=== PATIENT | male | born 1930 | race Caucasian/White ===

== ENCOUNTER 2019-07-22 14:39 | Inpatient (IN) ==
[2019-07-22] MEDS ORDERED: IOPAMIDOL 100 ML BOTTLE IV ONE (14:40)
--- NOTE | 2019-07-22 14:54 | Emergency Department Note ---
Neuro HPI - General Chief Complaint: Stroke Symptoms Stated Complaint: Confusion, weakness Time Seen by Provider: 07/22/19 14:45 Source: family Mode of arrival: wheelchair Limitations: altered mental status, physical limitation - History of Present Illness HPI Narrative: 89-year-old male comes in for aphasia since noon or about 2 hours and 45 minutes. He does not recall what he had for lunch but he does have some ongoing dementia. His was concerned about stroke as he had had a previous one 5 years prior[address] He [address] 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 Huang. He is not having significant pain right now nor shortness of breath. He has significant hearing loss as does his so it is somewhat difficult to communicate On Anticoagulants: Yes - Related Data Home Medications: Home Medications Medication Instructions Recorded Confirmed Aspirin [Maribell Chewable Aspirin] 81 mg PO DAILY 09/25/18 07/22/19 B2/Vits A,C,E/Lut/Zeaxanth/Min 1 each PO BID 09/25/18 07/22/19 [Icaps Tablet] Calcium Polycarbophil [Fiber 625 mg PO HS 09/25/18 07/22/19 Laxative] Docusate Sodium [Colace] 100 mg PO QAM 09/25/18 07/22/19 Hydrochlorothiazide [Oretic] 25 mg PO DAILY 09/25/18 07/22/19 Isosorbide Mononitrate [Imdur] 30 mg PO DAILY 09/25/18 07/22/19 Lisinopril [Zestril] 40 mg PO DAILY 09/25/18 07/22/19 Metoprolol Tartrate [Lopressor] 25 mg PO BID 09/25/18 07/22/19 Omeprazole [PriLOSEC] 20 mg PO ACB 09/25/18 07/22/19 glipiZIDE [Glucotrol] 10 mg PO BID 09/25/18 07/22/19 metFORMIN HCL [Metformin HCl] 1,275 mg PO QAM 09/25/18 07/22/19 metFORMIN HCL [Metformin HCl] 850 mg PO HS 09/25/18 07/22/19 Apixaban [Eliquis] 5 mg PO BID 12/17/19 12/17/19 Magnesium Amino Acid Chelate 150 mg PO HS 07/22/19 07/22/19 [Magnesium] Magnesium Oxide [Magnesium] 400 mg PO DAILY 07/22/19 07/22/19 Allergies/Adverse Reactions: Allergies Allergy/AdvReac Type Severity Reaction Status Date / Time Penicillins [PENICILLINS] Allergy Intermediate Hives Verified 09/25/18 15:38 Sulfa (Sulfonamide Allergy Intermediate Hives Verified 09/25/18 15:38 Antibiotics) [SULFA (SULFONAMIDE ANTIBIOTICS)] Review of Systems All systems ED: reviewed and negative except as stated. Past Medical History - Past Medical History Attestation: Yes: The following information was validated with the patient. Medical history: Reports: atrial fibrillation, CVA, dementia, kidney stones, pulmonary embolus, other (Colon cancer, right arm melanoma, prostate cancer, cataracts) Surgical history ED: Reports: other (Appendectomy, lithotripsy, prostate cancer implant, cataracts, multiple heart caths, [place] filter) - Social History smoking status: Never smoker Alcohol use: Reports: None Drug use: Reports: none Physical Exam No acute distress resting comfortably. Normocephalic atraumatic. Conjunctive are clear sclera white nonicteric. No nasal discharge or congestion. Bilateral hearing aids in place. Oropharynx is pink and moist. Posterior pharynx is clear. Neck is supple without lymphadenopathy thyromegaly or carotid bruit. Heart is regular rate and rhythm no murmur appreciated. Lungs are clear to auscultation bilaterally without wheezes rales rhonchi or respiratory distress. Abdomen is soft nontender nondistended. No peritoneal signs or guarding. He is alert and oriented to self. He knows where he is at. He does have some short- term memory deficit however but this is not new. His mental status seems to be in flux. At first he is able to smile well for us I do not see any facial droop but now this may be getting slightly worse. He is globally weak but I do not see a focal weakness. Bilateral electrochemist are normal. At times he can answer questions but other times he seems to have aphasia. Difficult to assess his visual reyes but certainly his pupils are equal round and reactive. Extraocular movements do appear to be intact. Limitations: altered mental status, physical limitation Course Vital Signs Temperature 97.2 F 07/22/19 14:44 Pulse Rate 78 07/22/19 14:44 Respiratory Rate 16 07/22/19 14:44 Blood Pressure 178/87 07/22/19 14:44 Pulse Oximetry (%) 95 07/22/19 14:44 Temperature 97.2 F 07/22/19 14:44 Pulse Rate 78 07/22/19 16:31 Respiratory Rate 20 07/22/19 17:31 Blood Pressure 155/91 07/22/19 17:31 Pulse Oximetry (%) 84 L 07/22/19 16:31 Neuro Symptoms/Deficit - Lab Data Lab results reviewed: Yes I reviewed the patient's lab results. Result diagrams: 07/22/19 14:54 07/22/19 14:54 Lab Results 07/22/19 07/22/19 07/22/19 Range/Units 14:54 14:54 14:54 WBC 8.3 (4.5-11.0) K/mcL RBC 4.77 (4.50-5.90) M/mcL Hgb 15.8 (13.5-16.5) g/dL Hct 47.1 (41.0-55.0) % POC Hct 46.0 (41.0-55.0) % MCV 98.7 (80.0-100.0) fL MCH 33.1 (26.0-34.0) pg MCHC 33.6 (31.0-36.0) g/dL RDW 14.6 H (11.5-14.5) % Plt Count 201 (140-440) K/mcL MPV 7.0 L (7.4-10.4) fL Gran % 60.9 (38.0-78.0) % Lymph % (Auto) 22.0 (15.5-49.0) % Piatt % (Auto) 12.5 H (1.0-12.0) % Eos % (Auto) 4.3 (0.0-7.0) % Baso % (Auto) 0.3 (0.0-2.0) % Gran # 5.1 (1.8-8.0) K/mcL Lymph # (Auto) 1.8 (1.5-4.8) K/mcL Piatt # (Auto) 1.0 H (0.1-0.9) K/mcL Eos # (Auto) 0.4 (0.0-0.7) K/mcL Baso # (Auto) 0 (0.0-0.3) K/mcL POC PT (11.9-14.5) sec POC INR (0.9-1.2) APTT (20-37) sec POC Sodium 140 (133-145) mmol/L Sodium 139 (133-145) mmol/L POC Potassium 3.4 (3.3-5.1) mmol/L Potassium 3.5 (3.3-5.1) mmol/L POC Chloride 101 (96-108) mmol/L Chloride 99 (96-108) mmol/L Carbon Dioxide 22 (22-30) mmol/L POC Total CO2 27 (22-30) mmol/L Anion Gap 18.0 H (8-16) POC BUN 18 (8-23) mg/dl BUN 16 (8-23) mg/dl Creatinine 1.4 H (0.7-1.2) mg/dl POC Creatinine 1.6 H (0.7-1.2) mg/dl GFR Calculation 45 Glucose 89 (70-105) mg/dL POC Glucose 91 (70-105) mg/dL Calcium 10.3 (8.6-10.4) mg/dl POC WB Ioniz Calcium 1.25 (1.16-1.32) mmol/L Total Bilirubin 0.5 (0.0-1.0) mg/dL AST 20 (0-37) U/l ALT 22 (0-40) U/l Alkaline Phosphatase 50 (39-117) U/L Troponin T < 0.01 (0-0.03) ng/ml Total Protein 7.5 (5.9-8.4) gm/dL Albumin 4.0 (3.2-5.2) gm/dL Globulin 3.5 (2.2-3.7) gm/dL Albumin/Globulin Ratio 1.1 (1.0-2.3) Urine Color Urine Appearance Urine pH (5.0-9.0) Ur Specific [place]aced[place] (1.000-1.035) Urine Protein (NEG) mg/dL Urine Glucose (UA) (NEG) mg/dL Urine Ketones (NEG) mg/dL Urine Occult Blood (<0.03) mg/dL Urine Nitrate (NEG) Urine Bilirubin (NEG) mg/dL Urine Urobilinogen (NEG) mg/dL Ur Leukocyte Esterase (NEG) /uL Urine RBC (0-1) /hpf Urine WBC (0-4) /hpf Ur Squamous Epith Cells (0-4) /hpf Urine Bacteria (0) /hpf Urine Mucus (0) /hpf Ur Culture Indicated? 07/22/19 07/22/19 Range/Units 15:09 15:55 WBC (4.5-11.0) K/mcL RBC (4.50-5.90) M/mcL Hgb (13.5-16.5) g/dL Hct (41.0-55.0) % POC Hct (41.0-55.0) % MCV (80.0-100.0) fL MCH (26.0-34.0) pg MCHC (31.0-36.0) g/dL RDW (11.5-14.5) % Plt Count (140-440) K/mcL MPV (7.4-10.4) fL Gran % (38.0-78.0) % Lymph % (Auto) (15.5-49.0) % Piatt % (Auto) (1.0-12.0) % Eos % (Auto) (0.0-7.0) % Baso % (Auto) (0.0-2.0) % Gran # (1.8-8.0) K/mcL Lymph # (Auto) (1.5-4.8) K/mcL Piatt # (Auto) (0.1-0.9) K/mcL Eos # (Auto) (0.0-0.7) K/mcL Baso # (Auto) (0.0-0.3) K/mcL POC PT 13.5 (11.9-14.5) sec POC INR 1.1 (0.9-1.2) APTT 30 (20-37) sec POC Sodium (133-145) mmol/L Sodium (133-145) mmol/L POC Potassium (3.3-5.1) mmol/L Potassium (3.3-5.1) mmol/L POC Chloride (96-108) mmol/L Chloride (96-108) mmol/L Carbon Dioxide (22-30) mmol/L POC Total CO2 (22-30) mmol/L Anion Gap (8-16) POC BUN (8-23) mg/dl BUN (8-23) mg/dl Creatinine (0.7-1.2) mg/dl POC Creatinine (0.7-1.2) mg/dl GFR Calculation Glucose (70-105) mg/dL POC Glucose (70-105) mg/dL Calcium (8.6-10.4) mg/dl POC WB Ioniz Calcium (1.16-1.32) mmol/L Total Bilirubin (0.0-1.0) mg/dL AST (0-37) U/l ALT (0-40) U/l Alkaline Phosphatase (39-117) U/L Troponin T (0-0.03) ng/ml Total Protein (5.9-8.4) gm/dL Albumin (3.2-5.2) gm/dL Globulin (2.2-3.7) gm/dL Albumin/Globulin Ratio (1.0-2.3) Urine Color Yellow Urine Appearance Clear Urine pH 7.0 (5.0-9.0) Ur Specific [place]o 1.017 (1.000-1.035) Urine Protein 100 A (NEG) mg/dL Urine Glucose (UA) Negative (NEG) mg/dL Urine Ketones Neg (NEG) mg/dL Urine Occult Blood Neg (<0.03) mg/dL Urine Nitrate Neg (NEG) Urine Bilirubin Neg (NEG) mg/dL Urine Urobilinogen Neg (NEG) mg/dL Ur Leukocyte Esterase Neg (NEG) /uL Urine RBC 6 H (0-1) /hpf Urine WBC 8 H (0-4) /hpf Ur Squamous Epith Cells 0 (0-4) /hpf Urine Bacteria 0 (0) /hpf Urine Mucus Few (0) /hpf Ur Culture Indicated? No - Radiology Data Radiology results reviewed: Yes I reviewed the patient's radiology results. CT scan of the head shows no acute stroke per Dr. Kimbrough verbal report CT angiogram of the head and neck showed no acute clot. MRI stroke protocol of the brain is ordered - EKG Data EKG attestation: Yes I reviewed and interpreted this EKG., Yes There are no EKG findings of acute coronary syndrome, Yes This EKG will be read by telegraph editor EKG results narrative: EKG shows a rate of 79 normal sinus rhythm with poor R wave progression. Old inferior CA with Q waves in 2 3 and aVF. Compared with March 2019 no acute change Disposition Pt seen by AUDIENCE COORDINATOR/PA only: No Clinical Impression: Chronic anticoagulation CVA (cerebral vascular accident) Qualifiers: CVA mechanism: unspecified Qualified Code(s): I63.9 - Cerebral infarction, unspecified Summary: Concern for possible stroke patient last seen at baseline at noon which was about 2 hours and 45 minutes prior to arrival. EKG does not show acute findings. CT scan of the head is likewise with no acute findings. Old encephalomalacia noted. Discussed findings with Dr. Cornelius, tele-stroke at [place]. He recommended CT angiogram of the head neck to see if patient might be eligible if there is a thrombus large vessel occlusion. Patient is not candidate for TPA as he is on Eliquis NIH score is 8. CTA of the head neck is negative. MRI is ordered It turns out we may not be able to get that MRI stroke protocol because of his IVC filter. They are actively working on that. As he is not eligible for any intervention I discussed findings with our hospitalist, Dr. Hernandez. Agreed to accept the patient for further care and evaluation in the hospital Disposition: [facility] Condition: Serious Referrals: Yovani Laguerre MD [Primary Care Provider] -
[2019-07-22 14:58] LABS: POC Blood Urea Nitrogen 18 mg/dl (8-23); POC CO2 27 mmol/L (22-30); POC Calcium, Ionized 1.25 mmol/L (1.16-1.32); POC Chloride 101 mmol/L (96-108); POC Creatinine 1.6 mg/dl (0.7-1.2); POC Glucose, Random 91 mg/dL (70-105); POC Potassium 3.4 mmol/L (3.3-5.1); POC Sodium 140 mmol/L (133-145)
[2019-07-22 15:12] LABS: POC INR 1.1 (0.9-1.2); POC Pro Time 13.5 sec (11.9-14.5)
--- NOTE | 2019-07-22 15:14 | Cat Scan Report ---
CLINICAL INFORMATION: COMPARISON: None. TECHNIQUE: 2.5 mm helical slices were obtained in the skull base to vertex. Following reconstruction, axial reformatted images were reviewed at bone and parenchymal windows. The exam was performed using radiation dose optimization techniques including, but not limited to, automated exposure control, adjustment of the mA and/or kV according to patient size and use of iterative reconstruction technique. FINDINGS: The ventricles, sulci, fissures, and cisterns are symmetrically enlarged compatible with mild age-related atrophy - no subdural hemorrhage or other extra-axial fluid collection appreciated. There is moderate patchy chronic ischemic changes in the deep cerebral white matter. There are two remote lacunar infarcts in the right thalamus as previously seen. There is no intracerebral hemorrhage, edema or mass effect. Bone windows show no osseous abnormality. IMPRESSION: Mild atrophy and chronic ischemic changes in the the cerebral white matter. Remote lacunar infarcts in the right thalamus. There is no intracerebral hemorrhage or other acute finding Moderate chronic left mastoiditis - stable Interpreted and Authenticated by: Matt Kimbrough 07/22/19
[2019-07-22 15:51] LABS: Basophils # (Auto) 0 K/mcL (0.0-0.3); Basophils % (Auto) 0.3 % (0.0-2.0); Eosinophils # (Auto) 0.4 K/mcL (0.0-0.7); Eosinophils % (Auto) 4.3 % (0.0-7.0); Granulocytes % (Auto) 60.9 % (38.0-78.0); Hematocrit 47.1 % (41.0-55.0); Hemoglobin 15.8 g/dL (13.5-16.5); Lymphocytes # (Auto) 1.8 K/mcL (1.5-4.8); Mean Cell Volume 98.7 fL (80.0-100.0); Mean Corpuscular HGB Conc 33.6 g/dL (31.0-36.0); Monocytes % (Auto) 12.5 % (1.0-12.0); Platelet Count 201 K/mcL (140-440); RBC 4.77 M/mcL (4.50-5.90); Red Cell Distribution Width 14.6 % (11.5-14.5); WBC 8.3 K/mcL (4.5-11.0)
[2019-07-22] MEDS ORDERED: 0.9 % SODIUM CHLORIDE 1,000 ML IV ONE (15:57)
[2019-07-22 16:13] LABS: ALT/SGPT 22 U/l (0-40); AST/SGOT 20 U/l (0-37); Albumin/Globulin Ratio 1.1 (1.0-2.3); Alkaline Phosphatase 50 U/L (39-117); Bilirubin,Total 0.5 mg/dL (0.0-1.0); Blood Urea Nitrogen 16 mg/dl (8-23); Calcium 10.3 mg/dl (8.6-10.4); Carbon Dioxide 22 mmol/L (22-30); Chloride 99 mmol/L (96-108); Globulin 3.5 gm/dL (2.2-3.7); Glomerular Filtration Rate 45; Glucose 89 mg/dL (70-105)
[2019-07-22 17:09] LABS: Appearance,Urine CLEAR; Bacteria,Urine 0 /hpf (0); Bilirubin,Urine NEG (NEG); Color,Urine YELLOW; Culture Indicated,Urine NO; Glucose,Urine (UA) NEGATIVE (NEG); Ketones,Urine NEG (NEG); Leukocyte Esterase,Urine NEG /uL (NEG); Mucus,Urine FEW /hpf (0); Nitrate,Urine NEG (NEG); Protein,Urine 100 mg/dL (NEG); Specific Gravity,Urine 1.017 (1.000-1.035); Urine Blood NEG mg/dL (<0.03); Urine RBC 6 /hpf (0-1); Urine Squamous Epithelial Cell 0 /hpf (0-4); Urine WBC 8 /hpf (0-4); Urobilinogen,Urine NEG (NEG)
--- NOTE | 2019-07-22 18:01 | Cat Scan Report ---
CLINICAL INFORMATION: Aphasia COMPARISON: None. TECHNIQUE: 80 cc of Isovue-370 were injected intravenously, and using SmartPrep to maximize arterial opacification, 0.625 mm helical slices were obtained from the thoracic aortic arch through the [place] of [place]. Following reconstruction, 2.5mm sagittal, coronal and axial reformatted images were processed and reviewed at standard and bone algorithm/window. 3-D volume rendered, CPR and MIP images were processed using a [employer] work station.The exam was performed using radiation dose optimization techniques including, but not limited to, automated exposure control, adjustment of the mA and/or kV according to patient size and use of iterative reconstruction technique. FINDINGS: Thoracic aortic arch is normal in diameter with diffuse atherosclerotic plaque. Aortic branching is conventional. Both subclavian, brachiocephalic, both common, internal and external carotid and vertebral arteries are widely patent. No soft tissue abnormalities. Upper lungs show moderate patchy groundglass airspace disease which is similar to eight 09/25/[address] and is therefore due to fibrosis. No soft tissue abnormality. IMPRESSION: The thoracic aorta arch, brachiocephalic, all subclavian, carotid and vertebral arteries are widely patent. Interpreted and Authenticated by: Matt Kimbrough 07/22/19
--- NOTE | 2019-07-22 18:02 | Cat Scan Report ---
CLINICAL INFORMATION: Aphasia COMPARISON: None. TECHNIQUE: 80 cc of Isovue-370 were injected intravenously , and using SmartPrep to maximize cerebral arterial opacification, 0.625 mm helical slices were obtained from the skull base through the cerebral vertex. Following reconstruction , sagittal, coronal and axial reformatted images were processed and reviewed at multiple windows and levels. 3D volume rendered and MIP images were acquired at a independent workstation. The exam was performed using radiation dose optimization techniques including, but not limited to, automated exposure control, adjustment of the mA and/or kV according to patient size and use of iterative reconstruction technique. FINDINGS: The intracranial internal carotid, anterior and middle cerebral, intracranial vertebral, basilar and posterior cerebral arteries are patent. There is scattered atherosclerotic plaque resulting in mild scattered stenoses less than 50%. No occlusion to suggest thrombus or embolus. The superficial and deep cerebral veins and venous sinuses are patent IMPRESSION: Negative Interpreted and Authenticated by: Matt Kimbrough 07/22/19
--- NOTE | 2019-07-22 18:30 | Internal Med History&Physical ---
Medical - H&P: HPI Patient information: Note initiated : 07/22/19 at 6:27 pm Service Date, if different from initiated Date: [] Patient: Sherif Lawson 89 y/o M admitted on for Confusion, weakness. Chief Complaint: [] History of present illness: 89-year-old gentleman with a history of PE status post IVC filter placement earlier this year, on anticoagulation, history of CAD status post drug-eluting stent in 2008, episodes of unstable angina subsequent stress test with apical ischemia. Patient was apparently okay until this afternoon he noticed having motor aphasia and ataxia and was brought to the ER and at the ER his NIH score was around 10 his symptoms started about 3 hours before coming to the ER he un derwent CT scan which did not show any evidence of bleed. Discussed with the on-call neurologist at [facility] and patient is not a candidate for TPA because of he is already on Eliquis. Patient underwent CTA which did not show any occlusive disease that could be amenable to embolectomy. He is still having some minimal aphasia and ataxia no evidence of any focal motor deficit is bilateral lower extremity strength equal upper extremity strength equal during my encounter. Patient's last dose of Eliquis was this morning. Unable to undergo MRI as our MRI machine is not compatible with his IVC filter. Discussed with process technician and the closest facility he can undergo MRI as [facility] [place]. Discussed with the patient's family and given options to transfer the patient for MRI versus discharge and outpatient MRI. I explained to the family MRI most likely will not change any management as the patient is on maximum therapy. Patient's family wishes to admit the patient here and follow-up outpatient MRI. - Constitutional Constitutional: Present: fatigue, lethargy. Absent: anorexia, chills, daytime sleepiness, excessive sweating - Cardiovascular Cardiovascular: Present: dyspnea on exertion. Absent: acrocyanosis, chest pain, chest pain at rest, chest pain with activity, claudication, diaphoresis - Respiratory Respiratory: Present: dyspnea on exertion. Absent: cough, dyspnea, hemoptysis, wheezing, snoring - Gastrointestinal Gastrointestinal: Absent: coffee ground emesis, constipation, cramping, diarrhea, dyspepsia - Genitourinary Genitourinary: Absent: flank pain, genital lesions, genital pain, hematospermia, hematuria - Integumentary Integumentary: Present: change in nails, dry skin. Absent: change in pigmentation, changing lesions - Neurological Neurological: Present: abnormal gait, abnormal speech, disequilibrium, lack of coordination, weakness. Absent: behavioral changes, burning sensations, confusion, convulsions, focal weakness, numbness, paresthesias, radicular pain, restless legs, sensory deficit, syncope, tingling, tremor(s) - Psychiatric Psychiatric: Absent: abnormal sleep pattern, anhedonia, anxiety, auditory hallucinations, behavioral changes, change in appetite, change in libido - Endocrine Endocrine: Absent: change in libido, cold intolerance, deeping of the voice, excessive sweating, fatigue, flushing Medical - H&P: PMH Problems Reviewed: Yes Medical history: CAD status post stent placement Recent angiogram moderate diffuse CAD without significant high-grade stenosis Normal LV function Recent PE placed IVC filter On anticoagulation History atrial fibrillation Prostate cancer seed placement History of colon cancer Not on any active chemotherapy History of diabetes Essential hypertension CKD Surgical history: Stent placement Prosthetic surgery Pertinent family history: Mother-history of heart disease early age 49 Social history: Lives with his who is also in her 80s and difficulty managing at home Both of them having hearing difficulty 2 adult son lives in [facility] Medical - H&P: Meds Home Medications Medication Instructions Recorded Confirmed Type Aspirin [Maribell Chewable Aspirin] 81 mg PO DAILY 09/25/18 07/22/19 History B2/Vits A,C,E/Lut/Zeaxanth/Min 1 each PO BID 09/25/18 07/22/19 History [Icaps Tablet] Calcium Polycarbophil [Fiber 625 mg PO HS 09/25/18 07/22/19 History Laxative] Docusate Sodium [Colace] 100 mg PO QAM 09/25/18 07/22/19 History Hydrochlorothiazide [Oretic] 25 mg PO DAILY 09/25/18 07/22/19 History Isosorbide Mononitrate [Imdur] 30 mg PO DAILY 09/25/18 07/22/19 History Lisinopril [Zestril] 40 mg PO DAILY 09/25/18 07/22/19 History Metoprolol Tartrate [Lopressor] 25 mg PO BID 09/25/18 07/22/19 History Omeprazole [PriLOSEC] 20 mg PO ACB 09/25/18 07/22/19 History glipiZIDE [Glucotrol] 10 mg PO BID 09/25/18 07/22/19 History metFORMIN HCL [Metformin HCl] 1,275 mg PO QAM 09/25/18 07/22/19 History metFORMIN HCL [Metformin HCl] 850 mg PO HS 09/25/18 07/22/19 History Apixaban [Eliquis] 5 mg PO BID 07/22/19 07/22/19 History Magnesium Amino Acid Chelate 150 mg PO HS 07/22/19 07/22/19 History [Magnesium] Magnesium Oxide [Magnesium] 400 mg PO DAILY 07/22/19 07/22/19 History Allergies Allergy/AdvReac Type Severity Reaction Status Date / Time Penicillins [PENICILLINS] Allergy Intermediate Hives Verified 09/25/18 15:38 Sulfa (Sulfonamide Allergy Intermediate Hives Verified 09/25/18 15:38 Antibiotics) [SULFA (SULFONAMIDE ANTIBIOTICS)] Medical - H&P: Exam - Constitutional Vitals: Temp Pulse Resp BP Pulse Ox 97.2 F 78 16 158/113 84 L 07/22/19 14:44 07/22/19 16:31 07/22/19 18:11 07/22/19 18:11 07/22/19 16:31 General appearance: cooperative, obese - Head Head exam: Present: atraumatic, normal inspection, normocephalic - Expanded Head Exam Head exam: Absent: abrasion, Desai's sign, contusion - Eye Eye exam: Present: EOMI, PERRL. Absent: conjunctival injection, normal appearance, periorbital tenderness - ENT ENT exam: Present: mucous membranes dry, normal exam, normal external ear exam, normal oropharynx - Expanded ENT Exam Ear exam: Absent: auricular hematoma, auricular trauma, external canal tenderness Nose & sinuses exam: Present: external nose, grossly normal, nasal mucusa, septum and turbinates normal, sinuses non tender to palpatation. Absent: nasal deformity Mouth exam: Present: dry mucosa, normal external inspection. Absent: drooling, laceration, muffled voice Teeth exam: Present: dental caries Throat exam: Present: normal inspection. Absent: post pharyngeal erythema - Neck Neck exam: Present: normal inspection. Absent: lymphadenopathy, meningismus, tenderness - Respiratory Respiratory exam: Present: normal respiratory exam, decreased breath sounds. Absent: accessory muscle use, chest wall tenderness, rales, rhonchi, wheezes - Cardiovascular Cardiovascular exam: Present: irregular rhythm, systolic murmur. Absent: bradycardia, gallop - GI/Abdominal GI/Abdominal exam: Present: normal bowel sounds, soft, distended. Absent: bruit, guarding, tenderness - Neurological Exam Neurological exam: Present: alert, oriented X3, reflexes normal (Mild motor aphasia, he is alert oriented answering all the questions, unable to check his gait, but patient reported dizzy while changing position. Deep tendon reflexes are intact. No incoordination but exam is difficult as he have his hearing trouble) - Expanded Neurological Exam Neurological exam expanded: Present: ataxia, expressive aphasia, protecting the airway. Absent: memory loss-recent event, memory loss-remote event, receptive aphasia, tremor Patient oriented to: Present: person, place, time Speech: Present: expressive aphasia. Absent: garbled, receptive aphasia, slurred, stutter Cranial nerves: EOM's intact: Normal, facial palsy with forehead movement: Normal, tongue deviation: Normal Cerebellar function: finger to nose: Normal Upper motor neuron: Babinski sign: Normal Sensory exam: LE 2 point discrimination: Normal Neuro motor strength exam: LUE: 5, RUE: 5, LLE: 4, RLE: 4 DTR: achilles tendon (L): 1+, achilles tendon (R): 1+ Coma Scale Eye Opening: Spontaneous - Psychiatric Psychiatric exam: Present: normal affect, normal mood. Absent: agitated, anxious, depressed - Skin Skin exam: Absent: abrasion, cyanosis, diaphoretic, erythema Medical - H&P: Reslt - Labs CBC & Chem 7: 07/22/19 14:54 07/22/19 14:54 Labs: Short CBC 07/22/19 Range/Units 14:54 WBC 8.3 (4.5-11.0) K/mcL Hgb 15.8 (13.5-16.5) g/dL Hct 47.1 (41.0-55.0) % Plt Count 201 (140-440) K/mcL BMP 07/22/19 14:54 Sodium 139 Potassium 3.5 Chloride 99 Carbon Dioxide 22 BUN 16 Creatinine 1.4 H Glucose 89 Calcium 10.3 Cardiac Enzymes 07/22/19 Range/Units 14:54 Troponin T < 0.01 (0-0.03) ng/ml Liver Function 07/22/19 Range/Units 14:54 Total Bilirubin 0.5 (0.0-1.0) mg/dL AST 20 (0-37) U/l ALT 22 (0-40) U/l Alkaline Phosphatase 50 (39-117) U/L Albumin 4.0 (3.2-5.2) gm/dL Urine 07/22/19 Range/Units 15:55 Urine Color Yellow Urine Appearance Clear Urine pH 7.0 (5.0-9.0) Ur Specific [place] 1.017 (1.000-1.035) Urine Protein 100 A (NEG) mg/dL Urine Glucose (UA) Negative (NEG) mg/dL Medical - H&P: A/P - Narrative A/P Narrative: New onset of stroke On Eliquis Started aphasia and ataxia NIH score of [address] scan did not show any occlusive disease Patient is MRI incompatible in our machine due to IVC filter Patient could undergo MRI imaging with 1.5 [facility] and the closest facilities [place] Discussed with the patient's family extensively and the patient family wish to patient to be admitted here and outpatient MRI He is on anticoagulation and will consider starting him on aspirin 81 mg Neither him for any bleeding Allow permissive hypertension Restart his home medication as needed Physical therapy evaluation Echocardiogram History of atrial fibrillation History of CAD status post LAD stent placement in 2008 Patient had a recent angiogram which showed a moderate diffuse CAD without significant high-grade stenosis this was done last year and recommended medical therapy Continue Eliquis Atrial fibrillation We will consider starting metoprolol due to atrial fibrillation Eliquis continue Echocardiogram ordered Chronic renal insufficiency Monitor creatinine Type 2 diabetes Sliding scale insulin and continue home medications History of colon cancer No active symptoms or mass lesion History of MRSA History of prostate cancer status post seed implant DVT prophylaxis-he is on Eliquis, SCDs Expected length of stay-2 midnights Medical - H&P: Qual - Stroke Onset of Symptoms Date: 07/22/19 Onset of Symptoms Time: 12:00 Symptom Onset Unknown: No
[2019-07-22] MEDS ORDERED: ACETAMINOPHEN 325 MG TABLET PO PRN (18:35)
[2019-07-22] MEDS ORDERED: SENNOSIDES 1 TABLET PO PRN (18:39)
[2019-07-22] MEDS ORDERED: LACTULOSE 20 GM/30 ML ORAL.SOL PO PRN (18:39)
[2019-07-22] MEDS ORDERED: ONDANSETRON 4 MG/2 ML VIAL IV PRN (18:39)
[2019-07-22 21:21] LABS: Estimated Average Glucose(eAG) 137 mg/dL; Hemoglobin A1C 6.4 % HGB (4.0-6.0)
[2019-07-22 21:35] LABS: ALT/SGPT 19 U/l (0-40); AST/SGOT 17 U/l (0-37); Albumin 3.7 gm/dL (3.2-5.2); Albumin/Globulin Ratio 1.3 (1.0-2.3); Alkaline Phosphatase 45 U/L (39-117); Bilirubin,Total 0.3 mg/dL (0.0-1.0); Blood Urea Nitrogen 15 mg/dl (8-23); Calcium 9.6 mg/dl (8.6-10.4); Carbon Dioxide 23 mmol/L (22-30); Chloride 100 mmol/L (96-108); Globulin 2.9 gm/dL (2.2-3.7); Glomerular Filtration Rate 38; Glucose 71 mg/dL (70-105)
[2019-07-22] MEDS: DOCUSATE SODIUM 100 MG CAPSULE PO SCH (23:28)
[2019-07-22] MEDS: APIXABAN 5 MG TABLET PO SCH (23:28)
[2019-07-22] MEDS: METOPROLOL TARTRATE 25 MG TABLET PO SCH (23:29)
[2019-07-22] MEDS: 0.9 % SODIUM CHLORIDE 10 ML SYRINGE IV SCH (23:32)
[2019-07-23] MEDS: METOPROLOL TARTRATE 25 MG TABLET PO SCH ×3 (04:38→20:11)
[2019-07-23 07:06] LABS: Basophils # (Auto) 0 K/mcL (0.0-0.3); Basophils % (Auto) 0.5 % (0.0-2.0); Eosinophils # (Auto) 0.3 K/mcL (0.0-0.7); Eosinophils % (Auto) 4.2 % (0.0-7.0); Granulocytes % (Auto) 63.8 % (38.0-78.0); Hematocrit 43.2 % (41.0-55.0); Hemoglobin 14.4 g/dL (13.5-16.5); Lymphocytes # (Auto) 1.2 K/mcL (1.5-4.8); Lymphocytes % (Auto) 17.6 % (15.5-49.0); Mean Cell Volume 99.7 fL (80.0-100.0); Mean Corpuscular HGB Conc 33.3 g/dL (31.0-36.0); Monocytes % (Auto) 13.9 % (1.0-12.0); Platelet Count 165 K/mcL (140-440); RBC 4.34 M/mcL (4.50-5.90); Red Cell Distribution Width 14.6 % (11.5-14.5); WBC 6.9 K/mcL (4.5-11.0)
[2019-07-23 07:33] LABS: HDL Cholesterol 38 mg/dl (>40); LDL Cholesterol,Calculated 100 mg/dl (SEE CHART); Non-HDL Cholesterol 124 (LDL TARGET+30); Triglycerides 121 mg/dl (<150)
[2019-07-23 07:36] LABS: ALT/SGPT 18 U/l (0-40); AST/SGOT 18 U/l (0-37); Albumin 3.6 gm/dL (3.2-5.2); Albumin/Globulin Ratio 1.2 (1.0-2.3); Alkaline Phosphatase 45 U/L (39-117); Bilirubin,Total 0.6 mg/dL (0.0-1.0); Blood Urea Nitrogen 16 mg/dl (8-23); Calcium 9.8 mg/dl (8.6-10.4); Carbon Dioxide 25 mmol/L (22-30); Chloride 102 mmol/L (96-108); Glomerular Filtration Rate 49; Glucose 78 mg/dL (70-105)
[2019-07-23] MEDS: OMEPRAZOLE 20 MG CAPSULE PO SCH (07:54)
[2019-07-23] MEDS: 0.9 % SODIUM CHLORIDE 10 ML SYRINGE IV SCH ×3 (07:54→20:11)
[2019-07-23] MEDS ORDERED: MAGNESIUM SULFATE 2 GM/50 ML BAG IV ONE (08:53)
[2019-07-23] MEDS: ASPIRIN 81 MG TAB.CHEW PO SCH (09:45)
[2019-07-23] MEDS: APIXABAN 5 MG TABLET PO SCH ×2 (09:45→20:11)
[2019-07-23] MEDS: DOCUSATE SODIUM 100 MG CAPSULE PO SCH ×2 (09:46→20:11)
[2019-07-23] MEDS ORDERED: MAGNESIUM SULFATE 4 GM/100 ML BAG IV ONE (10:00)
--- NOTE | 2019-07-23 10:31 | Internal Med Progress Note ---
Medical - PN: Subj Patient information: Note initiated : 07/23/19 at 10:29 am Service Date, if different from initiated Date: [] Patient: Sherif Lawson 89 y/o M admitted on 07/22/19 for Confusion, weakness. Chief Complaint: [] Interval history: 89-year-old gentleman with a history of PE status post IVC filter placement earlier this year, on anticoagulation, history of CAD status post drug-eluting s tent in 2008, episodes of unstable angina subsequent stress test with apical ischemia. Patient was apparently okay until this afternoon he noticed having motor aphasia and ataxia and was brought to the ER and at the ER his NIH score was around 10 his symptoms started about 3 hours before coming to the ER he underwent CT scan which did not show any evidence of bleed. Discussed with the on-call neurologist at [facility] and patient is not a candidate for TPA because of he is already on Eliquis. Patient underwent CTA which did not show any occlusive disease that could be amenable to embolectomy. He is still having some minimal aphasia and ataxia no evidence of any focal mot or deficit is bilateral lower extremity strength equal upper extremity strength equal during my encounter. Patient's last dose of Eliquis was this morning. Unable to undergo MRI as our MRI machine is not compatible with his IVC filter. Discussed with cable technician and the closest facility he can undergo MRI as [facility] and [place]. Discussed with the patient's family and given options to transfer the patient for MRI versus discharge and outpatient MRI. I explained to the family MRI most likely will not change any management as the patient is on maximum therapy. Patient's family wishes to admit the patient here and follow-up outpatient MRI. 07/23-patient is feeling better he still having garbled speech but no significant motor aphasia. He will undergo an echocardiogram. Patient is to work with physical therapy. Then based on the therapy patient can be discharged rehab versus home with home health. Patient can be discharged in a day or 2. Speech therapy evaluation pending. Continued aspirin and Eliquis home dose. Patient needs to scheduled have an outpatient MRI at [facility] in [place] or [facility]. Pertinent ROS: General-no acute distress, patient is feeling slightly better Respiratory no shortness of breath no cough Cardiac-no chest pain no palpitation no syncope Abdomen-no diarrhea no abdominal pain no constipation Neuro-he still having garbled speech he feeling slightly better unable to check his gait Psychiatric no anxiety no agitation - Constitutional Vitals: Vital Signs Temp Pulse Resp BP Pulse Ox 98.6 F 74 22 160/98 96 07/23/19 04:01 07/23/19 04:01 07/23/19 06:43 07/23/19 06:01 07/23/19 04:01 Period Temp Pulse Resp BP Sys/Vides Pulse Ox Last 24 Hr 97.2 F-98.6 F 56-86 12-26 128-197/67-118 84-96 Intake and Output 07/22/19 07/23/19 07/23/19 21:59 05:59 13:59 Intake Total 1000 Output Total 225 950 Balance 775 -950 Weight 170 lb 8 oz Intake & Output: Intake & Output 07/22/19 07/23/19 07/23/19 21:59 05:59 13:59 Intake Total 1000 Output Total 225 950 Balance 775 -950 Weight 170 lb 8 oz Intake: IV 1000 Sodium Chloride 0.9% 1,000 ml @ 1000 Wide Open IV BOLUS ONE Rx#: [id number] Output: Void Amount 225 950 Other: Urine Appearance Clear Clear Urine Color Pale Pale Urine Odor Normal Normal General appearance: cooperative, no acute distress - Head Head exam: Present: atraumatic, normal inspection - Eye Eye exam: Present: normal appearance, PERRL. Absent: conjunctival injection, nystagmus - ENT ENT exam: Present: mucous membranes moist, normal exam, normal external ear exam, normal oropharynx - Neck Neck exam: Present: normal inspection. Absent: lymphadenopathy, meningismus, tenderness - Respiratory Respiratory exam: Present: normal respiratory exam. Absent: accessory muscle use, chest wall tenderness, decreased breath sounds, respiratory distress - Cardiovascular Cardiovascular exam: Present: irregular rhythm. Absent: bradycardia, diastolic murmur, +S3, +S4, systolic murmur - GI/Abdominal GI/Abdominal exam: Present: normal bowel sounds, soft, distended. Absent: bruit, diminished bowel sounds - Neurological Exam Neurological exam: Present: abnormal gait (His upper and lower motor strength bilaterally equal, incoordination present, abnormal gait unable to test completely as the patient feels unsafe, reflexes intact, still having garbled speech, higher mental functions intact,), alert - Psychiatric Psychiatric exam: Present: normal affect, normal mood. Absent: agitated, anxious, depressed Medical - PN: Obj Da - Labs CBC & Chem 7: 07/23/19 03:44 07/23/19 03:44 Labs: Abnormal Lab Results 07/23/19 07/23/19 07/23/19 03:44 03:44 03:44 RBC 4.34 L RDW 14.6 H MPV 7.0 L [place] % (Auto) 13.9 H Lymph # (Auto) 1.2 L [place] # (Auto) 1.0 H Potassium 3.2 L Anion Gap Creatinine 1.3 H POC Creatinine Hemoglobin A1c Magnesium HDL Cholesterol 38 L Urine Protein Urine RBC Urine WBC 07/22/19 07/22/19 07/22/19 19:21 15:55 14:54 RBC RDW MPV [place] % (Auto) Lymph # (Auto) [place] # (Auto) Potassium Anion Gap 18.0 H Creatinine 1.6 H 1.4 H POC Creatinine 1.6 H Hemoglobin A1c 6.4 H Magnesium 1.3 L HDL Cholesterol Urine Protein 100 A Urine RBC 6 H Urine WBC 8 H 07/22/19 14:54 RBC RDW 14.6 H MPV 7.0 L [place] % (Auto) 12.5 H Lymph # (Auto) [place] # (Auto) 1.0 H Potassium Anion Gap Creatinine POC Creatinine Hemoglobin A1c Magnesium HDL Cholesterol Urine Protein Urine RBC Urine WBC Meds: Medications Acetaminophen (Tylenol) 650 mg PO Q6HP PRN PRN Reason: PAIN/FEVER > 101 Apixaban (Eliquis) 5 mg PO BID [facility] Last Admin: 07/23/19 09:45 Dose: 5 mg Documented by: Aspirin (Aspirin) 81 mg PO DAILY [facility] Last Admin: 07/23/19 09:45 Dose: 81 mg Documented by: Diagnostic Test (Pha) (Accu-Chek) 1 each FS [facility] Docusate Sodium (Colace) 100 mg PO BID [facility] Last Admin: 07/23/19 09:46 Dose: Not Given Documented by: Magnesium Sulfate (Magnesium Sulfate) 4 gm in 100 mls @ 50 mls/hr IV ONCE ONE Stop: 07/23/19 11:59 Last Admin: 07/23/19 09:46 Dose: 50 mls/hr Documented by: Insulin Human Lispro (Humalog) 0 unit SQ [facility]; Protocol Lactulose (Cephulac) 10 gm PO DAILYP PRN PRN Reason: Constipation Metoprolol Tartrate (Lopressor) 25 mg PO BID [facility] Last Admin: 07/23/19 09:45 Dose: 25 mg Documented by: Omeprazole (Prilosec) 20 mg PO ACB [facility] Last Admin: 07/23/19 07:54 Dose: 20 mg Documented by: Ondansetron HCl (Zofran) 4 mg IV Q4HP PRN; Protocol PRN Reason: Nausea And Vomiting Senna (Senokot) 2 tab PO HSP PRN PRN Reason: Constipation Sodium Chloride (Saline Flush) 10 ml IV Q8 [facility] Last Admin: 07/23/19 07:54 Dose: 10 ml Documented by: Medical - PN: A/P - Time Spent With Patient Total time spent is greater than 50% in coordination of care (as documented) at patient's floor/unit and/or counseling patient: - Narrative A/P Narrative: New onset of stroke On Eliquis, continue Started aphasia and ataxia-improved still having garbled speech CTA and CT scan did not show any occlusive disease Patient is MRI incompatible in our machine due to IVC filter Patient could undergo MRI imaging with 1.5 [facility] and the closest facilities [place] and [place] Discussed with the patient's family extensively and the patient family wish to patient to be admitted here and outpatient MRI. His outpatient MRI needs to be scheduled at the time of discharge at [facility] in [facility] and neurology follow-up Restarted aspirin 81 mg Allow permissive hypertension Restart his home medication as needed Physical therapy evaluation pending Speech therapy evaluation pending Echocardiogram pending History of CAD status post LAD stent placement in 2008 Patient had a recent angiogram which showed a moderate diffuse CAD without significant high-grade stenosis this was done last year and recommended medical therapy Continue Eliquis and aspirin Atrial fibrillation We will consider starting metoprolol due to atrial fibrillation Eliquis continue 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
[2019-07-23] MEDS: INSULIN LISPRO 1 UNIT/0.01 ML UNIT SQ SCH ×3 (13:46→20:10)
[2019-07-24] MEDS: 0.9 % SODIUM CHLORIDE 10 ML SYRINGE IV SCH ×3 (06:06→20:53)
[2019-07-24 06:40] LABS: ALT/SGPT 18 U/l (0-40); AST/SGOT 15 U/l (0-37); Albumin 3.6 gm/dL (3.2-5.2); Albumin/Globulin Ratio 1.2 (1.0-2.3); Alkaline Phosphatase 48 U/L (39-117); Bilirubin,Total 0.5 mg/dL (0.0-1.0); Blood Urea Nitrogen 20 mg/dl (8-23); Calcium 9.8 mg/dl (8.6-10.4); Carbon Dioxide 21 mmol/L (22-30); Chloride 101 mmol/L (96-108); Globulin 3.1 gm/dL (2.2-3.7); Glomerular Filtration Rate 45; Glucose 260 mg/dL (70-105)
[2019-07-24] MEDS: OMEPRAZOLE 20 MG CAPSULE PO SCH (08:48)
[2019-07-24] MEDS: ASPIRIN 81 MG TAB.CHEW PO SCH (08:48)
[2019-07-24] MEDS: DOCUSATE SODIUM 100 MG CAPSULE PO SCH ×2 (08:49→20:53)
[2019-07-24] MEDS: INSULIN LISPRO 1 UNIT/0.01 ML UNIT SQ SCH ×4 (08:49→20:53)
[2019-07-24] MEDS: METOPROLOL TARTRATE 25 MG TABLET PO SCH ×2 (08:49→20:53)
[2019-07-24] MEDS: APIXABAN 5 MG TABLET PO SCH ×2 (09:06→20:53)
--- NOTE | 2019-07-24 15:52 | Internal Med Progress Note ---
Medical - PN: Subj Patient information: Note initiated : 07/24/19 at 3:41 pm Service Date, if different from initiated Date: [] Patient: Sherif Lawson 89 y/o M admitted on 07/22/19 for Confusion, weakness. 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 In the ER, CT of head negative for acute change. Neurologist at the [facility] was consulted. Patient is not a candidate for TPA. MRI was not able to performed due to IVC filter. Discussed with technical support agent, the closest facility he can undergo MRI are [facility] and [place]. Discussed with the patient's family who would like to have MRI as an outpatient MRI. Today patient does not have any new complaints and lying comfortably in bed. He seems to have mild slurred speech. Denies headache, dizziness, chest pain, shortness of breath, focal numbness and weakness. No overnight events - Constitutional Vitals: Vital Signs Temp Pulse Resp BP Pulse Ox 98.1 F 69 20 143/82 99 07/24/19 11:01 07/24/19 05:13 07/24/19 10:01 07/24/19 11:01 07/24/19 11:01 Period Temp Pulse Resp BP Sys/Vides Pulse Ox Last 24 Hr 97.9 F-98.8 F 67-87 14-31 136-195/60-130 92-99 Intake and Output 07/24/19 07/24/19 07/24/19 05:59 13:59 21:59 Intake Total 580 Output Total 500 300 300 Balance -500 280 -300 Weight 79.152 kg Intake & Output: Intake & Output 07/24/19 07/24/19 07/24/19 05:59 13:59 21:59 Intake Total 580 Output Total 500 300 300 Balance -500 280 -300 Weight 79.152 kg Intake: IV 100 Oral 480 Output: Void Amount 500 300 300 Other: Meal Breakfast Percent of Meal Consumed 100% Feeding Ability Assist with Tray Set Up Urine Appearance Clear Clear Clear Urine Color Bright Yellow Bright Yellow Bright Yellow Urine Odor Normal Normal Normal General appearance: cooperative, no acute distress - Eye Eye exam: Present: EOMI, PERRL - ENT ENT exam: Present: mucous membranes moist - Neck Neck exam: Present: full ROM, normal inspection - Respiratory Respiratory exam: Present: normal respiratory exam, CTAB - Cardiovascular Cardiovascular exam: Present: normal rate and rhythm - GI/Abdominal GI/Abdominal exam: Present: normal bowel sounds, soft - Extremities Exam Extremities exam: Present: full ROM, normal inspection - Neurological Exam Neurological exam: Present: alert (Mild slurred speech, nasolabial fold symmetrical, strength symmetrical in both arms and legs) - Psychiatric Psychiatric exam: Present: normal affect Medical - PN: Obj Da - Labs CBC & Chem 7: 07/23/19 03:44 07/24/19 03:40 Labs: Abnormal Lab Results 07/24/19 07/23/19 07/23/19 03:40 03:44 03:44 RBC RDW MPV [place] % (Auto) Lymph # (Auto) [place] # (Auto) Potassium 3.2 L Carbon Dioxide 21 L Anion Gap Creatinine 1.4 H 1.3 H POC Creatinine Glucose 260 H Hemoglobin A1c Magnesium HDL Cholesterol 38 L Urine Protein Urine RBC Urine WBC 07/23/19 07/22/19 07/22/19 03:44 19:21 15:55 RBC 4.34 L RDW 14.6 H MPV 7.0 L [place] % (Auto) 13.9 H Lymph # (Auto) 1.2 L [place] # (Auto) 1.0 H Potassium Carbon Dioxide Anion Gap Creatinine 1.6 H POC Creatinine Glucose Hemoglobin A1c 6.4 H Magnesium 1.3 L HDL Cholesterol Urine Protein 100 A Urine RBC 6 H Urine WBC 8 H 07/22/19 07/22/19 14:54 14:54 RBC RDW 14.6 H MPV 7.0 L [place] % (Auto) 12.5 H Lymph # (Auto) [place] # (Auto) 1.0 H Potassium Carbon Dioxide Anion Gap 18.0 H Creatinine 1.4 H POC Creatinine 1.6 H Glucose Hemoglobin A1c Magnesium HDL Cholesterol Urine Protein Urine RBC Urine WBC Meds: Medications Acetaminophen (Tylenol) 650 mg PO Q6HP PRN PRN Reason: PAIN/FEVER > 101 Apixaban (Eliquis) 5 mg PO BID [facility] Last Admin: 07/24/19 09:06 Dose: 5 mg Documented by: Aspirin (Aspirin) 81 mg PO DAILY [facility] Last Admin: 07/24/19 08:48 Dose: 81 mg Documented by: Diagnostic Test (Pha) (Accu-Chek) 1 each FS [facility] Last Admin: 07/24/19 12:02 Dose: 1 each Documented by: Docusate Sodium (Colace) 100 mg PO BID [facility] Last Admin: 07/24/19 08:49 Dose: 100 mg Documented by: [facility]) [facility] Hydrochlorothiazide (Oretic) 25 mg PO DAILY [facility] Insulin Human Lispro (Humalog) 0 unit SQ [facility]; Protocol Last Admin: 07/24/19 12:14 Dose: 10 units Documented by: Lactulose (Cephulac) 10 gm PO DAILYP PRN PRN Reason: Constipation Lisinopril (Zestril) 40 mg PO DAILY [facility] Metoprolol Tartrate (Lopressor) 25 mg PO BID [facility] Last Admin: 07/24/19 08:49 Dose: 25 mg Documented by: Omeprazole (Prilosec) 20 mg PO ACB [facility] Last Admin: 07/24/19 08:48 Dose: 20 mg Documented by: Ondansetron HCl (Zofran) 4 mg IV Q4HP PRN; Protocol PRN Reason: Nausea And Vomiting Senna (Senokot) 2 tab PO HSP PRN PRN Reason: Constipation Sodium Chloride (Saline Flush) 10 ml IV Q8 [facility] Last Admin: 07/24/19 12:03 Dose: 10 ml Documented by: Medical - PN: A/P - Time Spent With Patient Total time spent is greater than 50% in coordination of care (as documented) at patient's floor/unit and/or counseling patient: (1) CVA (cerebral vascular accident) Status: Acute Current Visit: Yes - Narrative A/P Narrative: Assessment: 1. New onset of stroke, ischemia CT of the head - negative for acute change CTA of the head and neck -negative MRI incompatible in our machine due to IVC filter. Patient would like to have MRI as an outpatient Continue aspirin, added Lipitor Control blood pressure PT OT mild oral dysphagia, follow advice from ST, regular with thin liquids 2. CAD status post LAD stent placement in 2008 Patient had a recent angiogram which showed a moderate diffuse CAD without s ignificant high-grade stenosis this was done last year and recommended medical therapy Continue Eliquis, Lipitor and aspirin 3. Atrial fibrillation Rate is controlled, continue Eliquis Echocardiogram pending 4. Other chronic and stable problems Chronic renal insufficiency Monitor creatinine Type 2 diabetes Sliding scale insulin and continue home medications History of colon cancer No active symptoms or mass lesion History of MRSA History of prostate cancer status post seed implant 5. DVT prophylaxis-he is on Eliquis, SCDs Deposition: SNF rehab - placement Medical - PN: Qual - Stroke Onset of Symptoms Date: 07/22/19 Onset of Symptoms Time: 12:00 Symptom Onset Unknown: No - VTE Deep Vein Thrombosis/Pulmonary Embolism Present on Admission: No
[2019-07-24] MEDS ORDERED: POTASSIUM CHLORIDE 20 MEQ TABLET PO ONE (16:34)
[2019-07-24] MEDS: glipiZIDE 5 MG TABLET PO SCH (17:10)
[2019-07-25] MEDS ORDERED: OLANZapine 10 MG VIAL IM ONE (00:41)
[2019-07-25] MEDS ORDERED: OLANZapine 10 MG VIAL IM SCH (00:45)
[2019-07-25] MEDS: 0.9 % SODIUM CHLORIDE 10 ML SYRINGE IV SCH ×3 (04:52→23:38)
[2019-07-25 06:25] LABS: Basophils # (Auto) 0 K/mcL (0.0-0.3); Basophils % (Auto) 0.4 % (0.0-2.0); Eosinophils # (Auto) 0.4 K/mcL (0.0-0.7); Granulocytes % (Auto) 59.8 % (38.0-78.0); Hematocrit 46.7 % (41.0-55.0); Hemoglobin 15.7 g/dL (13.5-16.5); Lymphocytes # (Auto) 1.4 K/mcL (1.5-4.8); Lymphocytes % (Auto) 20.5 % (15.5-49.0); Mean Cell Volume 98.6 fL (80.0-100.0); Mean Corpuscular HGB Conc 33.6 g/dL (31.0-36.0); Mean Platelet Volume 7.1 fL (7.4-10.4); Monocytes # (Auto) 0.9 K/mcL (0.1-0.9); Monocytes % (Auto) 13.3 % (1.0-12.0); Platelet Count 174 K/mcL (140-440); RBC 4.74 M/mcL (4.50-5.90); Red Cell Distribution Width 14.8 % (11.5-14.5)
[2019-07-25 07:12] LABS: ALT/SGPT 22 U/l (0-40); AST/SGOT 18 U/l (0-37); Albumin 3.9 gm/dL (3.2-5.2); Albumin/Globulin Ratio 1.3 (1.0-2.3); Alkaline Phosphatase 55 U/L (39-117); Bilirubin,Total 0.5 mg/dL (0.0-1.0); Blood Urea Nitrogen 17 mg/dl (8-23); Calcium 10.4 mg/dl (8.6-10.4); Carbon Dioxide 23 mmol/L (22-30); Chloride 104 mmol/L (96-108); Glomerular Filtration Rate 54; Glucose 229 mg/dL (70-105)
[2019-07-25] MEDS: glipiZIDE 5 MG TABLET PO SCH ×2 (08:32→17:57)
[2019-07-25] MEDS: OMEPRAZOLE 20 MG CAPSULE PO SCH (08:32)
[2019-07-25] MEDS: INSULIN LISPRO 1 UNIT/0.01 ML UNIT SQ SCH ×4 (08:36→20:54)
[2019-07-25] MEDS: METOPROLOL TARTRATE 25 MG TABLET PO SCH ×2 (08:49→20:55)
[2019-07-25] MEDS: ASPIRIN 81 MG TAB.CHEW PO SCH (08:49)
[2019-07-25] MEDS: DOCUSATE SODIUM 100 MG CAPSULE PO SCH ×2 (08:49→20:55)
[2019-07-25] MEDS: APIXABAN 5 MG TABLET PO SCH ×2 (08:50→20:56)
[2019-07-25] MEDS ORDERED: amLODIPine 5 MG TABLET PO SCH (09:00)
[2019-07-25] MEDS ORDERED: ATORVASTATIN 40 MG TABLET PO SCH (09:00)
[2019-07-25] MEDS ORDERED: HYDROCHLOROTHIAZIDE 25 MG TABLET PO SCH (09:00)
[2019-07-25] MEDS ORDERED: LISINOPRIL 20 MG TABLET PO SCH (09:00)
--- NOTE | 2019-07-25 11:19 | Cat Scan Report ---
CLINICAL INFORMATION: COMPARISON: None. TECHNIQUE: 2.5 mm helical slices were obtained in the skull base to vertex. Following reconstruction, axial reformatted images were reviewed at bone and parenchymal windows. The exam was performed using radiation dose optimization techniques including, but not limited to, automated exposure control, adjustment of the mA and/or kV according to patient size and use of iterative reconstruction technique. FINDINGS: The ventricles, sulci, fissures, and cisterns are symmetrically enlarged compatible with mild age-related atrophy - no subdural hemorrhage or other extra-axial fluid collection appreciated. There is moderate patchy chronic ischemic changes in the deep cerebral white matter. There are two remote lacunar infarcts in the right thalamus as previously seen. A 5 mm remote lacunar infarct in the subcortical white matter posterior left frontal lobe also stable There is no intracerebral hemorrhage, edema or mass effect. Bone windows show no osseous abnormality. IMPRESSION: Mild atrophy and chronic ischemic changes in the cerebral white matter. Remote lacunar infarcts in the right thalamus and subcortical white matter of the posterior left frontal lobe There is no intracerebral hemorrhage or other acute finding Moderate chronic left mastoiditis - stable Interpreted and Authenticated by: Matt Kimbrough 07/25/19
[2019-07-25] MEDS ORDERED: ONDANSETRON 4 MG/2 ML VIAL IV PRN (15:41)
[2019-07-25] MEDS ORDERED: LACTULOSE 20 GM/30 ML ORAL.SOL PO PRN (15:41)
[2019-07-25] MEDS ORDERED: ACETAMINOPHEN 325 MG TABLET PO PRN (15:41)
[2019-07-25] MEDS ORDERED: SENNOSIDES 1 TABLET PO PRN (15:41)
--- NOTE | 2019-07-25 20:38 | Internal Med Progress Note ---
Medical - PN: Subj Patient information: Note initiated : 07/25/19 at 8:35 pm Service Date, if different from initiated Date: [] Patient: Sherif Lawson 89 y/o M admitted on 07/22/19 for Confusion, weakness. 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 In the ER, CT of head negative for acute change. Neurologist at the [facility] was consulted. Patient is not a candidate for TPA. MRI was not able to performed due to IVC filter. Discussed with hvac residential service technician, the closest facility he can undergo MRI are [facility] and [place]. Discussed with the patient's family who would like to have MRI as an outpatient MRI. pt has more confusion. Denies headache, dizziness, chest pain, shortness of breath, focal numbness and weakness. No overnight events - Constitutional Vitals: Vital Signs Temp Pulse Resp BP Pulse Ox 98.1 F 78 22 176/93 92 07/25/19 19:55 07/25/19 19:55 07/25/19 19:55 07/25/19 19:55 07/25/19 19:55 Period Temp Pulse Resp BP Sys/Vides Pulse Ox Last 24 Hr 97.0 F-98.1 F 65-81 16-22 140-195/77-133 92-96 Intake and Output 07/25/19 07/25/19 07/25/19 05:59 13:59 21:59 Intake Total 100 Output Total 500 551 650 Balance -500 -562 -650 Weight 79.379 kg Patient Weight 07/26/19 05:59 Weight 79.379 kg Intake & Output: Intake & Output 07/25/19 07/25/19 07/25/19 05:59 13:59 21:59 Intake Total 100 Output Total 500 551 650 Balance -500 -867 -613 Weight 79.379 kg Intake: Oral 100 Output: Void Amount 500 550 650 # of times incontinent of urine 1 Other: Meal Breakfast Percent of Meal Consumed 75% Feeding Ability Needs Supervision Urine Appearance Clear Clear Clear Urine Color Dark Yellow Dark Yellow Dark Yellow Urine Odor Strong Normal Normal General appearance: no acute distress - Eye Eye exam: Present: EOMI, PERRL. Absent: conjunctival injection - ENT ENT exam: Present: normal exam - Neck Neck exam: Present: normal inspection - Respiratory Respiratory exam: Present: normal respiratory exam, CTAB - Cardiovascular Cardiovascular exam: Present: normal rate and rhythm, RRR - GI/Abdominal GI/Abdominal exam: Present: normal bowel sounds, soft. Absent: tenderness - Extremities Exam Extremities exam: Absent: pedal edema, Aileen's sign - Neurological Exam Neurological exam: Absent: motor sensory deficit (Confusion, no focal neurological deficits) Medical - PN: Obj Da - Labs CBC & Chem 7: 07/25/19 04:56 07/25/19 04:56 Labs: Abnormal Lab Results 07/25/19 07/25/19 07/24/19 04:56 04:56 03:40 RBC RDW 14.8 H MPV 7.1 L [place] % (Auto) 13.3 H Lymph # (Auto) 1.4 L [place] # (Auto) Potassium Carbon Dioxide 21 L Creatinine 1.4 H Glucose 229 H 260 H Hemoglobin A1c Magnesium HDL Cholesterol 07/23/19 07/23/19 07/23/19 03:44 03:44 03:44 RBC 4.34 L RDW 14.6 H MPV 7.0 L [place] % (Auto) 13.9 H Lymph # (Auto) 1.2 L [place] # (Auto) 1.0 H Potassium 3.2 L Carbon Dioxide Creatinine 1.3 H Glucose Hemoglobin A1c Magnesium HDL Cholesterol 38 L 07/22/19 19:21 RBC RDW MPV [place] % (Auto) Lymph # (Auto) [place] # (Auto) Potassium Carbon Dioxide Creatinine 1.6 H Glucose Hemoglobin A1c 6.4 H Magnesium 1.3 L HDL Cholesterol Meds: Medications Acetaminophen (Tylenol) 650 mg PO Q6HP PRN PRN Reason: PAIN/FEVER > 101 Amlodipine Besylate (Norvasc) 5 mg PO DAILY [facility] Apixaban (Eliquis) 5 mg PO BID [facility] Aspirin (Aspirin) 81 mg PO DAILY [facility] Atorvastatin Calcium (Lipitor) 40 mg PO DAILY [facility] Diagnostic Test (Pha) (Accu-Chek) 1 each FS ACHS [facility] Last Admin: 07/25/19 17:52 Dose: 1 each Documented by: Divalproex Sodium (Depakote Sprinkles) 125 mg PO BID [facility] Docusate Sodium (Colace) 100 mg PO BID [facility] Glipizide (Glucotrol) 10 mg PO BIDCC [facility] Last Admin: 07/25/19 17:57 Dose: 10 mg Documented by: Hydrochlorothiazide (Oretic) 25 mg PO DAILY [facility] Insulin Human Lispro (Humalog) 0 unit SQ [facility]; Protocol Last Admin: 07/25/19 17:52 Dose: 4 units Documented by: Lactulose (Cephulac) 10 gm PO DAILYP PRN PRN Reason: Constipation Lisinopril (Zestril) 40 mg PO DAILY [facility] Metoprolol Tartrate (Lopressor) 25 mg PO BID [facility] Omeprazole (Prilosec) 20 mg PO ACB [facility] Ondansetron HCl (Zofran) 4 mg IV Q4HP PRN; Protocol PRN Reason: Nausea And Vomiting Senna (Senokot) 2 tab PO [facility] PRN PRN Reason: Constipation Sodium Chloride (Saline Flush) 10 ml IV Q8 [facility] Trazodone HCl (Desyrel) 25 mg PO DAILY [facility] Medical - PN: A/P - Time Spent With Patient Total time spent is greater than 50% in coordination of care (as documented) at patient's floor/unit and/or counseling patient: (1) CVA (cerebral vascular accident) Status: Acute Current Visit: Yes - Narrative A/P Narrative: Assessment: 1. New onset of stroke, ischemia CT of the head - negative for acute change CTA of the head and neck -negative MRI incompatible in our machine due to IVC filter. Patient would like to have MRI as an outpatient Continue aspirin, added Lipitor Control blood pressure PT OT mild oral dysphagia, follow advice from ST, regular with thin liquids Increased amlodipine to 10 mg daily from 5 mg daily More confusion today Repeat CT of head -negative for acute change 2. CAD status post LAD stent placement in 2008 Patient had a recent angiogram which showed a moderate diffuse CAD without significant high-grade stenosis this was done last year and recommended medical therapy Continue Eliquis, Lipitor and aspirin 3. Atrial fibrillation Rate is controlled, continue Eliquis Echocardiogram pending 4. Other chronic and stable problems Chronic renal insufficiency Monitor creatinine Type 2 diabetes Sliding scale insulin and continue home medications History of colon cancer No active symptoms or mass lesion History of MRSA History of prostate cancer status post seed implant 5. DVT prophylaxis-he is on Eliquis, SCDs Deposition: SNF rehab - placement Medical - PN: Qual - Stroke Onset of Symptoms Date: 07/22/19 Onset of Symptoms Time: 12:00 Symptom Onset Unknown: No - VTE Deep Vein Thrombosis/Pulmonary Embolism Present on Admission: No
[2019-07-25] MEDS: DIVALPROEX 125 MG CAP.SPRINK PO SCH (20:55)
[2019-07-25] MEDS ORDERED: DIVALPROEX 125 MG CAP.SPRINK PO SCH (21:00)
[2019-07-26] MEDS: 0.9 % SODIUM CHLORIDE 10 ML SYRINGE IV SCH ×3 (05:24→21:16)
[2019-07-26 06:36] LABS: Basophils # (Auto) 0 K/mcL (0.0-0.3); Basophils % (Auto) 0.4 % (0.0-2.0); Eosinophils # (Auto) 0.5 K/mcL (0.0-0.7); Eosinophils % (Auto) 6.9 % (0.0-7.0); Granulocytes % (Auto) 58.5 % (38.0-78.0); Hematocrit 47.5 % (41.0-55.0); Hemoglobin 15.8 g/dL (13.5-16.5); Lymphocytes # (Auto) 1.7 K/mcL (1.5-4.8); Mean Cell Volume 98.7 fL (80.0-100.0); Mean Corpuscular HGB Conc 33.2 g/dL (31.0-36.0); Mean Platelet Volume 7.1 fL (7.4-10.4); Monocytes # (Auto) 0.9 K/mcL (0.1-0.9); Monocytes % (Auto) 12.2 % (1.0-12.0); Platelet Count 165 K/mcL (140-440); RBC 4.81 M/mcL (4.50-5.90); Red Cell Distribution Width 14.6 % (11.5-14.5); WBC 7.6 K/mcL (4.5-11.0)
--- NOTE | 2019-07-26 08:29 | Internal Med Progress Note ---
Medical - PN: Subj Patient information: Note initiated : 07/26/19 at 8:26 am Service Date, if different from initiated Date: [] Patient: Sherif Lawson 89 y/o M admitted on 07/22/19 for Confusion, weakness. 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 In the ER, CT of head negative for acute change. Neurologist at the [facility] was consulted. Patient is not a candidate for TPA. MRI was not able to performed due to IVC filter. Discussed with mortuary technician, the closest facility he can undergo MRI are [facility] and [place]. Discussed with the patient's family who would like to have MRI as an outpatient MRI. Today pt's mental status is improved. He can talk with . He can answer single questions. Denies headache, dizziness, chest pain, shortness of breath, or fever/chills. BP is still not controlled No overnight events - Constitutional Vitals: Vital Signs Temp Pulse Resp BP Pulse Ox 98.1 F 52 L 16 181/81 96 07/26/19 03:12 07/26/19 03:12 07/26/19 03:12 07/26/19 03:12 07/26/19 03:12 Period Temp Pulse Resp BP Sys/Vides Pulse Ox Last 24 Hr 97.0 F-98.1 F 52-78 16-22 140-181/81-93 92-96 Intake and Output 07/25/19 07/26/19 07/26/19 21:59 05:59 13:59 Output Total 825 300 Balance -825 -300 Weight 79.379 kg Intake & Output: Intake & Output 07/25/19 07/26/19 07/26/19 21:59 05:59 13:59 Output Total 825 300 Balance -825 -300 Weight 79.379 kg Output: Void Amount 825 300 Other: Urine Appearance Clear Clear Urine Color Bright Yellow Bright Yellow Urine Odor Strong Strong General appearance: no acute distress - Head Head exam: Present: atraumatic, normal inspection, normocephalic - Eye Eye exam: Present: normal appearance - ENT ENT exam: Present: normal exam - Neck Neck exam: Present: normal inspection - Respiratory Respiratory exam: Present: normal respiratory exam, CTAB - Cardiovascular Cardiovascular exam: Present: normal rate and rhythm. Absent: JVD - GI/Abdominal GI/Abdominal exam: Present: normal bowel sounds, soft. Absent: tenderness - Extremities Exam Extremities exam: Present: full ROM, normal inspection. Absent: pedal edema, tenderness - Neurological Exam Neurological exam: Absent: motor sensory deficit (Mental status improved. Strength symmetrical in both legs and arms. symmetrical nasolabial folds b/l. mild aphasia) Medical - PN: Obj Da - Labs CBC & Chem 7: 07/26/19 04:56 07/25/19 04:56 Labs: Abnormal Lab Results 07/26/19 07/25/19 07/25/19 04:56 04:56 04:56 RDW 14.6 H 14.8 H MPV 7.1 L 7.1 L [place] % (Auto) 12.2 H 13.3 H Lymph # (Auto) 1.4 L Carbon Dioxide Creatinine Glucose 229 H 07/24/19 03:40 RDW MPV [place] % (Auto) Lymph # (Auto) Carbon Dioxide 21 L Creatinine 1.4 H Glucose 260 H Meds: Medications Acetaminophen (Tylenol) 650 mg PO Q6HP PRN PRN Reason: PAIN/FEVER > 101 Amlodipine Besylate (Norvasc) 10 mg PO DAILY [facility] Apixaban (Eliquis) 5 mg PO BID [facility] Last Admin: 07/25/19 20:56 Dose: 5 mg Documented by: Aspirin (Aspirin) 81 mg PO DAILY [facility] Atorvastatin Calcium (Lipitor) 40 mg PO DAILY [facility] Diagnostic Test (Pha) (Accu-Chek) 1 each FS ACHS [facility] Last Admin: 07/25/19 20:43 Dose: 1 each Documented by: Divalproex Sodium (Depakote Sprinkles) 125 mg PO BID [facility] Last Admin: 07/25/19 20:55 Dose: 125 mg Documented by: Docusate Sodium (Colace) 100 mg PO BID [facility] Last Admin: 07/25/19 20:55 Dose: 100 mg Documented by: [facility] Last Admin: 07/25/19 17:57 Dose: 10 mg Documented by: Hydrochlorothiazide (Oretic) 25 mg PO DAILY [facility] Insulin Human Lispro (Humalog) 0 unit SQ ACHS [facility]; Protocol Last Admin: 07/25/19 20:54 Dose: 4 units Documented by: Lactulose (Cephulac) 10 gm PO DAILYP PRN PRN Reason: Constipation Lisinopril (Zestril) 40 mg PO DAILY [facility] Metoprolol Tartrate (Lopressor) 25 mg PO BID [facility] Last Admin: 07/25/19 20:55 Dose: 25 mg Documented by: Omeprazole (Prilosec) 20 mg PO ACB [facility] Ondansetron HCl (Zofran) 4 mg IV Q4HP PRN; Protocol PRN Reason: Nausea And Vomiting Senna (Senokot) 2 tab PO [facility] PRN PRN Reason: Constipation Sodium Chloride (Saline Flush) 10 ml IV Q8 [facility] Last Admin: 07/26/19 05:24 Dose: 10 ml Documented by: Trazodone HCl (Desyrel) 25 mg PO DAILY [facility] Medical - PN: A/P - Time Spent With Patient Total time spent is greater than 50% in coordination of care (as documented) at patient's floor/unit and/or counseling patient: (1) CVA (cerebral vascular accident) Status: Acute Current Visit: Yes - Narrative A/P Narrative: Assessment: 1. New onset of stroke, ischemia CT of the head - negative for acute change CTA of the head and neck -negative MRI incompatible in our machine due to IVC filter. Patient would like to have MRI as an outpatient Continue aspirin, added Lipitor Control blood pressure PT OT mild oral dysphagia, follow advice from ST, regular with thin liquids Increased amlodipine to 10 mg daily from [address] of head -negative for acute change 2. CAD status post LAD stent placement in 2008 Patient had a recent angiogram which showed a moderate diffuse CAD without significant high-grade stenosis this was done last year and recommended medical therapy Lipitor and aspirin 3. Atrial fibrillation Rate is controlled, continue Eliquis Echocardiogram pending Continue Eliquis 4. Other chronic and stable problems Chronic renal insufficiency Monitor creatinine Type 2 diabetes Sliding scale insulin and continue home medications History of colon cancer No active symptoms or mass lesion History of MRSA History of prostate cancer status post seed implant 5. DVT prophylaxis-he is on Eliquis, SCDs Deposition: SNF rehab - placement Medical - PN: Qual - Stroke Onset of Symptoms Date: 07/22/19 Onset of Symptoms Time: 12:00 Symptom Onset Unknown: No - VTE Deep Vein Thrombosis/Pulmonary Embolism Present on Admission: No
[2019-07-26] MEDS: INSULIN LISPRO 1 UNIT/0.01 ML UNIT SQ SCH ×4 (08:41→20:47)
[2019-07-26] MEDS: OMEPRAZOLE 20 MG CAPSULE PO SCH (08:56)
[2019-07-26] MEDS: glipiZIDE 5 MG TABLET PO SCH ×2 (08:56→17:39)
[2019-07-26] MEDS ORDERED: amLODIPine 10 MG TABLET PO SCH (09:00)
[2019-07-26] MEDS ORDERED: traZODone HCL 50 MG TABLET PO SCH (09:00)
[2019-07-26] MEDS ORDERED: amLODIPine 5 MG TABLET PO SCH (09:00)
[2019-07-26] MEDS: DOCUSATE SODIUM 100 MG CAPSULE PO SCH ×2 (10:02→20:47)
[2019-07-26] MEDS: HYDROCHLOROTHIAZIDE 25 MG TABLET PO SCH (10:02)
[2019-07-26] MEDS: DIVALPROEX 125 MG CAP.SPRINK PO SCH ×2 (10:03→20:45)
[2019-07-26] MEDS: METOPROLOL TARTRATE 25 MG TABLET PO SCH (10:03)
[2019-07-26] MEDS: APIXABAN 5 MG TABLET PO SCH ×2 (10:03→20:47)
[2019-07-26] MEDS: ATORVASTATIN 40 MG TABLET PO SCH (10:03)
[2019-07-26] MEDS: ASPIRIN 81 MG TAB.CHEW PO SCH (10:03)
[2019-07-26] MEDS: traZODone HCL 50 MG TABLET PO SCH (10:03)
[2019-07-26] MEDS: LISINOPRIL 20 MG TABLET PO SCH (10:04)
[2019-07-26] MEDS ORDERED: ENALAPRILAT 2.5 MG/2 ML VIAL IV PRN (14:17)
--- NOTE | 2019-07-26 14:18 | Internal Med Progress Note ---
Medical - PN: Subj Patient information: Note initiated : 07/26/19 at 2:06 pm Service Date, if different from initiated Date: [] Patient: Sherif Lawson 89 y/o M admitted on 07/22/19 for Confusion, weakness. 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 Patient was apparently okay until this afternoon he noticed having motor aphasia and ataxia and was brought to the ER and at the ER his NIH score was around 10 his symptoms started about 3 hours before coming to the ER he underwent CT scan which did not show any evidence of bleed. Discussed with the on-call neurologist at [facility] and patient is not a candidate for TPA because of he is already on Eliquis. Patient underwent CTA which did not show any occlusive disease that could be amenable to embolectomy. He is still having some minimal aphasia and ataxia no evidence of any focal motor deficit is bilateral lower extremity strength equal upper extremity strength equal during my encounter. Patient's last dose of Eliquis was this morning. Unable to undergo MRI as our MRI machine is not compatible with his IVC filter. Discussed with mammography technologist and the closest facility he can undergo MRI as [facility] and [place]. Discussed with the patient's family and given options to transfer the patient for MRI versus discharge and outpatient MRI. I explained to the family MRI most likely will not change any management as the patient is on maximum therapy. Patient's family wishes to admit the patient here and follow-up outpatient MRI. 07/23-patient is feeling better he still having garbled speech but no significant motor aphasia. He will undergo an echocardiogram. Patient is to work with physical therapy. Then based on the therapy patient can be discharged rehab versus home with home health. Patient can be discharged in a day or 2. Speech therapy evaluation pending. Continued aspirin and Eliquis home dose. Patient needs to scheduled have an outpatient MRI at [facility] in [place] or [facility]. 07/24 Today patient does not have any new complaints and lying comfortably in bed. He seems to have mild slurred speech. Denies headache, dizziness, chest pain, shortness of breath, focal numbness and weakness. No overnight events 07/25 pt has more confusion. Denies headache, dizziness, chest pain, shortness of breath, focal numbness and weakness. No overnight events 07/26 Today pt's mental status is improved. He can talk with . He can answer single questions. Denies headache, dizziness, chest pain, shortness of breath, or fever/chills. BP is still not controlled No overnight events - Constitutional Vitals: Vital Signs Temp Pulse Resp BP Pulse Ox 98.0 F 95 H 18 181/89 96 07/26/19 08:00 07/26/19 08:00 07/26/19 08:00 07/26/19 08:00 07/26/19 03:12 Period Temp Pulse Resp BP Sys/Vides Pulse Ox Last 24 Hr 97.9 F-98.1 F 52-95 16-22 140-181/81-93 92-96 Intake and Output 07/26/19 07/26/19 07/26/19 05:59 13:59 21:59 Intake Total 650 Output Total 300 250 Balance -300 400 Intake & Output: Intake & Output 07/26/19 07/26/19 07/26/19 05:59 13:59 21:59 Intake Total 650 Output Total 300 250 Balance -300 400 Intake: Oral 650 Output: Void Amount 300 250 Other: Meal Breakfast Percent of Meal Consumed 100% Feeding Ability Needs Supervision Urine Appearance Clear Clear Urine Color Bright Yellow Dark Yellow Urine Odor Strong Normal Exam: General: Alert, Awake, No acute Distress Eyes/N/T: EOMI, Head/Neck: neck supple, CV: RRR, No murmurs, Pulm: Clear b/l, no wheezing/rhonchi/rales Abd: soft, nontender, +BS x4 Ext: no clubbing/cyanosis/edema Neuro: Alert, mentation improved, Strength symmetrical in both legs and arms, mild aphasia Skin: warm/dry Medical - PN: Obj Da - Labs CBC & Chem 7: 07/26/19 04:56 07/25/19 04:56 Labs: Abnormal Lab Results 07/26/19 07/25/19 07/25/19 04:56 04:56 04:56 RDW 14.6 H 14.8 H MPV 7.1 L 7.1 L [place] % (Auto) 12.2 H 13.3 H Lymph # (Auto) 1.4 L Carbon Dioxide Creatinine Glucose 229 H 07/24/19 03:40 RDW MPV [place] % (Auto) Lymph # (Auto) Carbon Dioxide 21 L Creatinine 1.4 H Glucose 260 H Meds: Medications Acetaminophen (Tylenol) 650 mg PO Q6HP PRN PRN Reason: PAIN/FEVER > 101 Amlodipine Besylate (Norvasc) 10 mg PO DAILY [facility] Last Admin: 07/26/19 10:03 Dose: 10 mg Documented by: Apixaban (Eliquis) 5 mg PO BID [facility] Last Admin: 07/26/19 10:03 Dose: 5 mg Documented by: Aspirin (Aspirin) 81 mg PO DAILY [facility] Last Admin: 07/26/19 10:03 Dose: 81 mg Documented by: Atorvastatin Calcium (Lipitor) 40 mg PO DAILY [facility] Last Admin: 07/26/19 10:03 Dose: 40 mg Documented by: Diagnostic Test (Pha) (Accu-Chek) 1 each FS [facility] Last Admin: 07/26/19 12:16 Dose: 1 each Documented by: Divalproex Sodium (Depakote Sprinkles) 125 mg PO BID [facility] Last Admin: 07/26/19 10:03 Dose: 125 mg Documented by: Docusate Sodium (Colace) 100 mg PO BID [facility] Last Admin: 07/26/19 10:02 Dose: 100 mg Documented by: Glipizide (Glucotrol) 10 mg PO BIDCC [facility] Last Admin: 07/26/19 08:56 Dose: 10 mg Documented by: Hydrochlorothiazide (Oretic) 25 mg PO DAILY [facility] Last Admin: 07/26/19 10:02 Dose: 25 mg Documented by: Insulin Human Lispro (Humalog) 0 unit SQ [facility]; Protocol Last Admin: 07/26/19 12:17 Dose: 6 units Documented by: Lactulose (Cephulac) 10 gm PO DAILYP PRN PRN Reason: Constipation Lisinopril (Zestril) 40 mg PO DAILY [facility] Last Admin: 07/26/19 10:04 Dose: 40 mg Documented by: Metoprolol Tartrate (Lopressor) 25 mg PO BID [facility] Last Admin: 07/26/19 10:03 Dose: 25 mg Documented by: Omeprazole (Prilosec) 20 mg PO ACB [facility] Last Admin: 07/26/19 08:56 Dose: 20 mg Documented by: Ondansetron HCl (Zofran) 4 mg IV Q4HP PRN; Protocol PRN Reason: Nausea And Vomiting Senna (Senokot) 2 tab PO HSP PRN PRN Reason: Constipation Sodium Chloride (Saline Flush) 10 ml IV Q8 [facility] Last Admin: 07/26/19 05:24 Dose: 10 ml Documented by: Trazodone HCl (Desyrel) 25 mg PO DAILY [facility] Last Admin: 07/26/19 10:03 Dose: 25 mg Documented by: Medical - PN: A/P - Time Spent With Patient Total time spent is greater than 50% in coordination of care (as documented) at patient's floor/unit and/or counseling patient: - Narrative A/P Narrative: A: *New onset of stroke, ischemia: -CT of the head - negative for acute change; CTA of the head and neck - negative -MRI incompatible in our machine due to IVC filter. Patient would like to have MRI as an outpatient -Repeat CT of head -negative for acute change -echo normal EF, no sig findings *mild oral dysphagia: * CAD status post LAD stent placement in 2008 *CAD: -Pt had recent angiogram that showed moderate diffuse CAD w/o significant high-grade stenosis, done last year & recommended medical therapy *Atrial fibrillation: Rate is controlled, continue Eliquis -Echocardiogram normal EF, no sig findings * CKD: *Type 2 diabetes: *h/o colon cancer & prostate cancer status post seed implant: P: -Continue aspirin, added Lipitor -Control blood pressure; Increased amlodipine to 10 mg daily from 5 mg daily, cont lisinopril 40, HCTZ 25, coreg 6.25 -PT/ OT / ST -follow advice from ST, regular with thin liquids -Continue Eliquis -Sliding scale insulin and continue home medications glipizide, metformin held -CM for placement -ppx: eliquis/home ppi Medical - PN: Qual - Stroke Onset of Symptoms Date: 07/22/19 Onset of Symptoms Time: 12:00 Symptom Onset Unknown: No - VTE Deep Vein Thrombosis/Pulmonary Embolism Present on Admission: No
[2019-07-26] MEDS: CARVEDILOL 6.25 MG TABLET PO SCH (17:39)
[2019-07-27] MEDS: 0.9 % SODIUM CHLORIDE 10 ML SYRINGE IV SCH ×3 (04:48→20:57)
[2019-07-27 06:56] LABS: Bilirubin,Direct < 0.2 mg/dL (0.0-0.3); Chloride 103 mmol/L (96-108)
[2019-07-27 06:58] LABS: ALT/SGPT 19 U/l (0-40); AST/SGOT 16 U/l (0-37); Albumin 3.2 gm/dL (3.2-5.2); Alkaline Phosphatase 54 U/L (39-117); Bilirubin,Total 0.5 mg/dL (0.0-1.0); Blood Urea Nitrogen 32 mg/dl (8-23); Carbon Dioxide 19 mmol/L (22-30); Globulin 3.3 gm/dL (2.2-3.7); Glomerular Filtration Rate 38; Glucose 274 mg/dL (70-105); Lactate Dehydrogenase 254 U/L (94-250); Phosphorous 3.6 mg/dL (2.7-4.5); Triglycerides 134 mg/dl (<150); Uric Acid 7.3 mg/dL (2.5-8.0)
[2019-07-27] MEDS ORDERED: MAGNESIUM SULFATE 8.12 MEQ in DEXTROSE 5% IN WATER 50 ML IV ONE (08:06)
--- NOTE | 2019-07-27 08:09 | Internal Med Progress Note ---
Medical - PN: Subj Patient information: Note initiated : 07/27/19 at 8:02 am Service Date, if different from initiated Date: [] Patient: Sherif Lawson 89 y/o M admitted on 07/22/19 for Confusion, weakness. 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 Patient was apparently okay until this afternoon he noticed having motor aphasia and ataxia and was brought to the ER and at the ER his NIH score was around 10 his symptoms started about 3 hours before coming to the ER he underwent CT scan which did not show any evidence of bleed. Discussed with the on-call neurologist at [facility] and patient is not a candidate for TPA because of he is already on Eliquis. Patient underwent CTA which did not show any occlusive disease that could be amenable to embolectomy. He is still having some minimal aphasia and ataxia no evidence of any focal motor deficit is bilateral lower extremity strength equal upper extremity strength equal during my encounter. Patient's last dose of Eliquis was this morning. Unable to undergo MRI as our MRI machine is not compatible with his IVC filter. Discussed with clinical support tech and the closest facility he can undergo MRI as [facility] and [place]. Discussed with the patient's family and given options to transfer the patient for MRI versus discharge and outpatient MRI. I explained to the family MRI most likely will not change any management as the patient is on maximum therapy. Patient's family wishes to admit the patient here and follow-up outpatient MRI. 07/23-patient is feeling better he still having garbled speech but no significant motor aphasia. He will undergo an echocardiogram. Patient is to work with physical therapy. Then based on the therapy patient can be discharged rehab versus home with home health. Patient can be discharged in a day or 2. Speech therapy evaluation pending. Continued aspirin and Eliquis home dose. Patient needs to scheduled have an outpatient MRI at [facility] in [place] or [facility]. 07/24 Today patient does not have any new complaints and lying comfortably in bed. He seems to have mild slurred speech. Denies headache, dizziness, chest pain, shortness of breath, focal numbness and weakness. No overnight events 07/25 pt has more confusion. Denies headache, dizziness, chest pain, shortness of breath, focal numbness and weakness. No overnight events 07/26 Today pt's mental status is improved. He can talk with . He can answer single questions. Denies headache, dizziness, chest pain, shortness of breath, or fever/chills. BP is still not controlled No overnight events 07/27 No new complaints overnight events. Family in room. Patient answering questions appropriately, good speech. Review of Systems: denies headache/fever/chills/nausea/vomiting/chest or abdominal pain/cough/dyspnea/diarrhea. Otherwise see above. - Constitutional Vitals: Vital Signs Temp Pulse Resp BP Pulse Ox 98.2 F 75 20 112/65 93 07/27/19 03:42 07/27/19 03:42 07/27/19 03:42 07/27/19 03:42 07/27/19 03:42 Period Temp Pulse Resp BP Sys/Vides Pulse Ox Last 24 Hr 98.2 F-98.5 F 75-99 109-128/65-82 93-95 Intake and Output 07/26/19 07/27/19 07/27/19 21:59 05:59 13:59 Intake Total 360 180 Output Total 350 152 Balance 10 28 Weight 80.649 kg Intake & Output: Intake & Output 07/26/19 07/27/19 07/27/19 21:59 05:59 13:59 Intake Total 360 180 Output Total 350 152 Balance 10 28 Weight 80.649 kg Intake: Oral 360 180 Output: Void Amount 350 150 # of times incontinent of urine 2 Other: Meal Dinner Percent of Meal Consumed 100% Feeding Ability Needs Supervision Urine Appearance Clear Urine Color Dark Yellow Urine Odor Strong Exam: General: Alert, Awake, No acute Distress Eyes/N/T: EOMI, Head/Neck: neck supple, CV: RRR, No murmurs, Pulm: Clear b/l, no wheezing/rhonchi/rales Abd: soft, nontender, +BS x4 Ext: no clubbing/cyanosis/edema Neuro: Alert, mentation improved, Strength symmetrical in both legs and arms, unable to appreciate aphasia today Skin: warm/dry Medical - PN: Obj Da - Labs CBC & Chem 7: 07/26/19 04:56 07/27/19 05:24 Labs: Abnormal Lab Results 07/27/19 07/26/19 07/25/19 05:24 04:56 04:56 RDW 14.6 H 14.8 H MPV 7.1 L 7.1 L [place] % (Auto) 12.2 H 13.3 H Lymph # (Auto) 1.4 L Carbon Dioxide 19 L BUN 32 H Creatinine 1.6 H Glucose 274 H Magnesium 1.5 L Lactate Dehydrogenase 254 H 07/25/19 04:56 RDW MPV [place] % (Auto) Lymph # (Auto) Carbon Dioxide BUN Creatinine Glucose 229 H Magnesium Lactate Dehydrogenase Meds: Medications Acetaminophen (Tylenol) 650 mg PO Q6HP PRN PRN Reason: PAIN/FEVER > 101 Amlodipine Besylate (Norvasc) 10 mg PO DAILY [facility] Last Admin: 07/26/19 10:03 Dose: 10 mg Documented by: Apixaban (Eliquis) 5 mg PO BID [facility] Last Admin: 07/26/19 20:47 Dose: 5 mg Documented by: Aspirin (Aspirin) 81 mg PO DAILY [facility] Last Admin: 07/26/19 10:03 Dose: 81 mg Documented by: Atorvastatin Calcium (Lipitor) 40 mg PO DAILY [facility] Last Admin: 07/26/19 10:03 Dose: 40 mg Documented by: [facility] Last Admin: 07/26/19 17:39 Dose: 6.25 mg Documented by: Diagnostic Test (Pha) (Accu-Chek) 1 each FS [facility] Last Admin: 07/26/19 20:32 Dose: 1 each Documented by: Divalproex Sodium (Depakote Sprinkles) 125 mg PO BID [facility] Last Admin: 07/26/19 20:45 Dose: 125 mg Documented by: Docusate Sodium (Colace) 100 mg PO BID [facility] Last Admin: 07/26/19 20:47 Dose: 100 mg Documented by: Enalaprilat (Vasotec) 0.625 mg IV Q3HP PRN PRN Reason: sbp>170 Glipizide (Glucotrol) 10 mg PO BIDCC [facility] Last Admin: 07/26/19 17:39 Dose: 10 mg Documented by: Hydrochlorothiazide (Oretic) 25 mg PO DAILY [facility] Last Admin: 07/26/19 10:02 Dose: 25 mg Documented by: Insulin Human Lispro (Humalog) 0 unit SQ [facility]; Protocol Last Admin: 07/26/19 20:47 Dose: 6 units Documented by: Isosorbide Mononitrate (Imdur) 30 mg PO DAILY [facility] Lactulose (Cephulac) 10 gm PO DAILYP PRN PRN Reason: Constipation Lisinopril (Zestril) 40 mg PO DAILY [facility] Last Admin: 07/26/19 10:04 Dose: 40 mg Documented by: Omeprazole (Prilosec) 20 mg PO ACB [facility] Last Admin: 07/26/19 08:56 Dose: 20 mg Documented by: Ondansetron HCl (Zofran) 4 mg IV Q4HP PRN; Protocol PRN Reason: Nausea And Vomiting Senna (Senokot) 2 tab PO HSP PRN PRN Reason: Constipation Sodium Chloride (Saline Flush) 10 ml IV Q8 [facility] Last Admin: 07/27/19 04:48 Dose: 10 ml Documented by: Trazodone HCl (Desyrel) 25 mg PO DAILY [facility] Last Admin: 07/26/19 10:03 Dose: 25 mg Documented by: Medical - PN: A/P - Time Spent With Patient Total time spent is greater than 50% in coordination of care (as documented) at patient's floor/unit and/or counseling patient: - Narrative A/P Narrative: A: *New onset of stroke, ischemia, symptoms of aphasia improved -CT of the head - negative for acute change; CTA of the head and neck - negative -MRI incompatible in our machine due to IVC filter. Patient would like to have MRI as an outpatient -Repeat CT of head -negative for acute change -echo normal EF, no sig findings *mild oral dysphagia: *CAD w/stent to LAD 2008: -Had angiogram last year that showed moderate diffuse CAD w/o significant high-grade stenosis, recommended medical therapy *Atrial fibrillation: Rate is controlled, continue Eliquis -Echocardiogram normal EF, no sig findings * CKD: *Type 2 diabetes: A1c 6.4 *h/o colon cancer & prostate cancer status post seed implant: P: -Continue aspirin, added Lipitor -Control blood pressure; cont amlodipine @5 mg daily, cont lisinopril 40, HCTZ 25, coreg 6.25 bid -PT/ OT / ST -follow advice from ST, regular with thin liquids -Continue Eliquis -Sliding scale insulin and continue home medications glipizide, added basal, metformin held for now -CM for placement -ppx: eliquis/home ppi Medical - PN: Qual - Stroke Onset of Symptoms Date: 07/22/19 Onset of Symptoms Time: 12:00 Symptom Onset Unknown: No - VTE Deep Vein Thrombosis/Pulmonary Embolism Present on Admission: No
[2019-07-27] MEDS: OMEPRAZOLE 20 MG CAPSULE PO SCH (08:47)
[2019-07-27] MEDS: DIVALPROEX 125 MG CAP.SPRINK PO SCH ×2 (08:47→20:56)
[2019-07-27] MEDS: traZODone HCL 50 MG TABLET PO SCH (08:47)
[2019-07-27] MEDS: DOCUSATE SODIUM 100 MG CAPSULE PO SCH ×2 (08:49→20:56)
[2019-07-27] MEDS: glipiZIDE 5 MG TABLET PO SCH ×2 (08:49→17:27)
[2019-07-27] MEDS: APIXABAN 5 MG TABLET PO SCH ×2 (08:49→20:56)
[2019-07-27] MEDS: CARVEDILOL 6.25 MG TABLET PO SCH ×2 (08:49→17:27)
[2019-07-27] MEDS: LISINOPRIL 20 MG TABLET PO SCH (08:49)
[2019-07-27] MEDS: ATORVASTATIN 40 MG TABLET PO SCH (08:50)
[2019-07-27] MEDS: ASPIRIN 81 MG TAB.CHEW PO SCH (08:50)
[2019-07-27] MEDS: HYDROCHLOROTHIAZIDE 25 MG TABLET PO SCH (08:50)
[2019-07-27] MEDS: INSULIN LISPRO 1 UNIT/0.01 ML UNIT SQ SCH ×4 (08:51→20:56)
[2019-07-27] MEDS ORDERED: amLODIPine 10 MG TABLET PO SCH (09:00)
[2019-07-27] MEDS ORDERED: INSULIN GLARGINE, HUMAN 1 UNIT/0.01 ML SQ SCH (09:00)
[2019-07-27] MEDS: ISOSORBIDE MONONITRATE 30 MG TAB.XL.24H PO SCH (11:24)
[2019-07-27] MEDS ORDERED: 0.9 % SODIUM CHLORIDE 500 ML IV ONE (11:44)
--- NOTE | 2019-07-27 12:19 | Discharge Summary ---
Medical - DS: Prov Patient information: Note initiated : 07/27/19 at 12:15 pm Service Date, if different from initiated Date: [] Patient: Sherif Lawson 89 y/o M admitted on 07/22/19 for Confusion, weakness. Chief Complaint: [] Date of admission: 07/22/19 20:51 Discharge date: 07/29/19 Primary care physician: Yovani Laguerre Consults: 07/22/19 Consult to Physician [CONS] Stat Comment: Consulting Provider: Clarence Hernandez Reason For Exam: Physician to Consult Medical - DS: Meds - Discharge Medications Prescriptions: Ciprofloxacin HCl [Cipro] 500 mg PO BID #6 tab Metoprolol Tartrate [Lopressor] 25 mg PO BID #1 tab Active and Home Medications: Home Medications Aspirin [Marbiell Chewable Aspirin] 81 mg PO DAILY 09/25/18 [History Confirmed 07/22/19 Last Taken Unknown] B2/Vits A,C,E/Lut/Zeaxanth/Min [Icaps Tablet] 1 each PO BID 09/25/18 [History Confirmed 07/22/19 Last Taken Unknown] Calcium Polycarbophil [Fiber Laxative] 625 mg PO HS 09/25/18 [History Confirmed 07/22/19 Last Taken Unknown] Docusate Sodium [Colace] 100 mg PO QAM 09/25/18 [History Confirmed 07/22/19 Last Taken Unknown] Hydrochlorothiazide [Oretic] 25 mg PO DAILY 09/25/18 [History Confirmed 07/22/19 Last Taken Unknown] Isosorbide Mononitrate [Imdur] 30 mg PO DAILY 09/25/18 [History Confirmed 07/22/19 Last Taken Unknown] Lisinopril [Zestril] 40 mg PO DAILY 09/25/18 [History Confirmed 07/22/19 Last Taken Unknown] Metoprolol Tartrate [Lopressor] 25 mg PO BID 09/25/18 [History Confirmed 07/22/19 Last Taken Unknown] Omeprazole [PriLOSEC] 20 mg PO ACB 09/25/18 [History Confirmed 07/22/19 Last Taken Unknown] glipiZIDE [Glucotrol] 10 mg PO BID 09/25/18 [History Confirmed 07/22/19 Last Taken Unknown] metFORMIN HCL [Metformin HCl] 1,275 mg PO QAM 09/25/18 [History Confirmed 07/22/19 Last Taken Unknown] metFORMIN HCL [Metformin HCl] 850 mg PO HS 09/25/18 [History Confirmed 07/22/19 Last Taken Unknown] Apixaban [Eliquis] 5 mg PO BID 07/22/19 [History Confirmed 07/22/19 Last Taken Unknown] Magnesium Amino Acid Chelate [Magnesium] 150 mg PO HS 07/22/19 [History Confirmed 07/22/19 Last Taken Unknown] Magnesium Oxide [Magnesium] 400 mg PO DAILY 07/22/19 [History Confirmed 07/22/19 Last Taken Unknown] Home Medications Aspirin [Maribell Chewable Aspirin] 81 mg PO DAILY 09/25/18 [History Confirmed 07/22/19 Last Taken Unknown] B2/Vits A,C,E/Lut/Zeaxanth/Min [Icaps Tablet] 1 each PO BID 09/25/18 [History Confirmed 07/22/19 Last Taken Unknown] Calcium Polycarbophil [Fiber Laxative] 625 mg PO HS 09/25/18 [History Confirmed 07/22/19 Last Taken Unknown] Docusate Sodium [Colace] 100 mg PO QAM 09/25/18 [History Confirmed 07/22/19 Last Taken Unknown] Hydrochlorothiazide [Oretic] 25 mg PO DAILY 09/25/18 [History Confirmed 07/22/19 Last Taken Unknown] Isosorbide Mononitrate [Imdur] 30 mg PO DAILY 09/25/18 [History Confirmed 07/22/19 Last Taken Unknown] Lisinopril [Zestril] 40 mg PO DAILY 09/25/18 [History Confirmed 07/22/19 Last Taken Unknown] Omeprazole [Prilosec] 20 mg PO ACB 09/25/18 [History Confirmed 07/22/19 Last Taken Unknown] glipiZIDE [Glucotrol] 10 mg PO BID 09/25/18 [History Confirmed 07/22/19 Last Taken Unknown] metFORMIN HCL [Metformin HCl] 1,275 mg PO QAM 09/25/18 [History Confirmed 07/22/19 Last Taken Unknown] metFORMIN HCL [Metformin HCl] 850 mg PO HS 09/25/18 [History Confirmed 07/22/19 Last Taken Unknown] Apixaban [Eliquis] 5 mg PO BID 07/22/19 [History Confirmed 07/22/19 Last Taken Unknown] Magnesium Amino Acid Chelate [Magnesium] 150 mg PO HS 07/22/19 [History Confirmed 07/22/19 Last Taken Unknown] Magnesium Oxide [Magnesium] 400 mg PO DAILY 07/22/19 [History Confirmed 07/22/19 Last Taken Unknown] Atorvastatin [Lipitor] 40 mg PO DAILY #30 tab 07/27/19 [Rx Last Taken Unknown] Metoprolol Tartrate [Lopressor] 25 mg PO BID #1 tablet 07/28/19 [Rx Last Taken Unknown] Medical - DS: Hosp Hospital Course: A: *New onset of stroke, ischemia, symptoms of expressive aphasia improved -CTA of the head and neck -negative -CT of the head negative for acute change, 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 Patient was apparently okay until this afternoon he noticed having motor aphasia and ataxia and was brought to the ER and at the ER his NIH score was around 10 his symptoms started about 3 hours before coming to the ER he underwent CT scan which did not show any evidence of bleed. Discussed with the on-call neurologist at [facility] and patient is not a candidate for TPA because of he is already on Eliquis. Patient underwent CTA which did not show any occlusive disease that could be amenable to embolectomy. He is still having some minimal aphasia and ataxia no evidence of any focal motor deficit is bilateral lower extremity strength equal upper extremity strength equal during my encounter. Patient's last dose of Eliquis was this morning. Unable to undergo MRI as our MRI machine is not compatible with his IVC filter. Discussed with echo vasc tech and the closest facility he can undergo MRI as [facility] and [place]. Discussed with the patient's family and given options to transfer the patient for MRI versus discharge and outpatient MRI. I explained to the family MRI most likely will not change any management as the patient is on maximum therapy. Patient's family wishes to admit the patient here and follow-up outpatient MRI. 07/23-patient is feeling better he still having garbled speech but no significant motor aphasia. He will undergo an echocardiogram. Patient is to work with physical therapy. Then based on the therapy patient can be discharged rehab versus home with home health. Patient can be discharged in a day or 2. Speech therapy evaluation pending. Continued aspirin and Eliquis home dose. Patient needs to scheduled have an outpatient MRI at [facility] in [place] or [facility]. 07/24 Today patient does not have any new complaints and lying comfortably in bed. He seems to have mild slurred speech. Denies headache, dizziness, chest pain, shortness of breath, focal numbness and weakness. No overnight events 07/25 pt has more confusion. Denies headache, dizziness, chest pain, shortness of breath, focal numbness and weakness. No overnight events 07/26 Today pt's mental status is improved. He can talk with . He can answer si ngle questions. Denies headache, dizziness, chest pain, shortness of breath, or fever/chills. BP is still not controlled No overnight events 07/27 No new complaints overnight events. Family in room. Patient answering questions appropriately, good speech. 07/28 Report per nursing the patient had some dysuria and also foul odor in his urine, although the patient denies burning or pain when he urinates, however the urine concerning. Will start on the body. Also creatinine elevated suspect he is not been drinking very much a net negative fluid balance. 07/29 No overnight events. Renal function proved. Stable for discharge. Discharge diagnosis: Stroke with aphasia symptoms improved mild oral pharyngeal dysphagia Secondary discharge diagnosis: Atrial fibrillation CAD CKD diabetes, SAUL - Time Spent with Patient Total time spent providing and/or coordinating discharge services: Greater than 30 minutes Medical - DS: Exam - Constitutional Vitals: Vital Signs Temp Pulse Pulse Resp BP BP Pulse Ox 07/27/19 10:00 97.4 F 55 L 16 117/74 96 07/27/19 09:42 98.4 F 73 20 115/72 93 07/27/19 08:00 98.4 F 20 138/78 93 07/27/19 03:42 98.2 F 75 20 112/65 93 07/26/19 23:11 98.5 F 88 22 114/72 93 07/26/19 18:29 98.4 F 92 H 20 109/74 95 07/26/19 16:00 98.4 F 99 H 18 120/77 93 Intake and Output 07/26/19 07/27/19 07/27/19 21:59 05:59 13:59 Intake Total 360 180 200 Output Total 350 152 502 Balance 10 28 -302 Intake: Oral 360 180 200 Output: Void Amount 350 150 500 # of times incontinent of urine 2 2 Other: Meal Dinner Breakfast Percent of Meal Consumed 100% 100% Feeding Ability Needs Supervision Assist with Tray Set Up Urine Appearance Clear Clear Urine Color Dark Yellow Dark Yellow Urine Odor Strong Normal Weight 80.649 kg Medical - DS: Data Labs on day of discharge: Labs from last 24 hours 07/27/19 05:24 Sodium 135 Potassium 3.9 Chloride 103 Carbon Dioxide 19 L Anion Gap 13.0 BUN 32 H Creatinine 1.6 H GFR Calculation 38 Glucose 274 H Uric Acid 7.3 Calcium 10.0 Phosphorus 3.6 Magnesium 1.5 L Total Bilirubin 0.5 Direct Bilirubin < 0.2 GGT 33 AST 16 ALT 19 Alkaline Phosphatase 54 Lactate Dehydrogenase 254 H Total Protein 6.5 Albumin 3.2 Globulin 3.3 Albumin/Globulin Ratio 1.0 Triglycerides 134 Medical - DS: A/P - Patient/Caregiver Discharge Instructions Activity: as per physical therapy Diet: Consistent Carbohydrate Prescriptions: Ciprofloxacin HCl [Cipro] 500 mg PO BID #6 tab Metoprolol Tartrate [Lopressor] 25 mg PO BID #1 tab Other Amb Orders: OT Discharge Order Location: None Selected Physical Therapy at Discharge - General Location: None Selected ST Discharge Order Location: None Selected - Follow up Plan Follow up with: Yovani Laguerre MD [Primary Care Provider] - Disposition: Xfer SNF Prognosis: Fair Rehab Potential: Fair Overall status at discharge: patient is progressing back to baseline Medical - DS: Qual - VTE Deep Vein Thrombosis/Pulmonary Embolism Present on Admission: No
[2019-07-28] MEDS: 0.9 % SODIUM CHLORIDE 10 ML SYRINGE IV SCH ×3 (04:18→21:26)
[2019-07-28 06:36] LABS: Appearance,Urine CLOUDY; Bacteria,Urine 0 /hpf (0); Bilirubin,Urine NEG (NEG); Color,Urine YELLOW; Culture Indicated,Urine YES; Glucose,Urine (UA) 50 mg/dL (NEG); Ketones,Urine NEG (NEG); Leukocyte Esterase,Urine 500 /uL (NEG); Nitrate,Urine NEG (NEG); Protein,Urine 100 mg/dL (NEG); Specific Gravity,Urine 1.016 (1.000-1.035); Urine Blood >=1.0 mg/dL (<0.03); Urine Hyaline Cast 36 /lpf (0-2); Urine RBC 152 /hpf (0-1); Urine Squamous Epithelial Cell 0 /hpf (0-4); Urine WBC > 182 /hpf (0-4); Urobilinogen,Urine NEG (NEG)
[2019-07-28 06:52] LABS: Bilirubin,Total 0.4 mg/dL (0.0-1.0); Calcium 10.1 mg/dl (8.6-10.4); Carbon Dioxide 20 mmol/L (22-30); Chloride 98 mmol/L (96-108)
[2019-07-28 07:01] LABS: Blood Urea Nitrogen 50 mg/dl (8-23)
[2019-07-28] MEDS ORDERED: DEXTROSE 50% 50 ML VIAL IV PRN (07:12)
[2019-07-28] MEDS ORDERED: DEXTROSE 31 GM ORAL.SUSP PO PRN (07:12)
--- NOTE | 2019-07-28 07:15 | Internal Med Progress Note ---
Medical - PN: Subj Patient information: Note initiated : 07/28/19 at 7:12 am Service Date, if different from initiated Date: [] Patient: Sherif Lawson 89 y/o M admitted on 07/22/19 for Confusion, weakness. 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 Patient was apparently okay until this afternoon he noticed having motor aphasia and ataxia and was brought to the ER and at the ER his NIH score was around 10 his symptoms started about 3 hours before coming to the ER he underwent CT scan which did not show any evidence of bleed. Discussed with the on-call neurologist at [facility] and patient is not a candidate for TPA because of he is already on Eliquis. Patient underwent CTA which did not show any occlusive disease that could be amenable to embolectomy. He is still having some minimal aphasia and ataxia no evidence of any focal motor deficit is bilateral lower extremity strength equal upper extremity strength equal during my encounter. Patient's last dose of Eliquis was this morning. Unable to undergo MRI as our MRI machine is not compatible with his IVC filter. Discussed with technical operations specialist and the closest facility he can undergo MRI as [facility] and [place]. Discussed with the patient's family and given options to transfer the patient for MRI versus discharge and outpatient MRI. I explained to the family MRI most likely will not change any management as the patient is on maximum therapy. Patient's family wishes to admit the patient here and follow-up outpatient MRI. 07/23-patient is feeling better he still having garbled speech but no significant motor aphasia. He will undergo an echocardiogram. Patient is to work with physical therapy. Then based on the therapy patient can be discharged rehab versus home with home health. Patient can be discharged in a day or 2. Speech therapy evaluation pending. Continued aspirin and Eliquis home dose. Patient needs to scheduled have an outpatient MRI [facility] [place] [facility] 07/24 Today patient does not have any new complaints and lying comfortably in bed. He seems to have mild slurred speech. Denies headache, dizziness, chest pain, shortness of breath, focal numbness and weakness. No overnight events 07/25 pt has more confusion. Denies headache, dizziness, chest pain, shortness of breath, focal numbness and weakness. No overnight events 07/26 Today pt's mental status is improved. He can talk with . He can answer single questions. Denies headache, dizziness, chest pain, shortness of breath, or fever/chills. BP is still not controlled No overnight events 07/27 No new complaints overnight events. Family in room. Patient answering questions appropriately, good speech. 07/28 Report per nursing the patient had some dysuria and also foul odor in his urine, although the patient denies burning or pain when he urinates, however the urine concerning. Will start on the body. Also creatinine elevated suspect he is not been drinking very much a net negative fluid balance. Review of Systems: denies headache/fever/chills/nausea/vomiting/chest or abdominal pain/cough/dyspnea/diarrhea. Otherwise see above. - Constitutional Vitals: Vital Signs Temp Pulse Resp BP Pulse Ox 98.0 F 70 16 109/65 95 07/28/19 04:14 07/27/19 17:47 07/28/19 04:14 07/28/19 04:14 07/28/19 04:14 Period Temp Pulse Resp BP Sys/Vides Pulse Ox Last 24 Hr 97.4 F-98.4 F 55-90 - 95-138/60-78 92-98 Intake and Output 07/27/19 07/28/19 07/28/19 21:59 05:59 13:59 Intake Total 952 240 Output Total 350 100 Balance 602 140 Weight 80.377 kg Intake & Output: Intake & Output 07/27/19 07/28/19 07/28/19 21:59 05:59 13:59 Intake Total 952 240 Output Total 350 100 Balance 602 140 Weight 80.377 kg Intake: IV 552 Sodium Chloride 0.9% 500 ml @ 500 84 mls/hr IV BOLUS ONE Rx#: [id number] Magnesium Sulfate 8.12 Meq In 52 Dextrose 5% in Water 50 ml @ 52 mls/hr IV ONCE ONE Rx#: [id number] Oral 240 GI Tube Flush 400 Output: Void Amount 350 100 Other: Urine Appearance Clear Cloudy Urine Color Dark Yellow Bright Yellow Urine Odor Normal Normal Stool Size Moderate Stool Color Brown Black Blood Tinged Stool Consistency Dry and Hard # Voids 1 # Bowel Movements 1 Exam: General: Alert, Awake, No acute Distress Eyes/N/T: EOMI, DMM Head/Neck: neck supple, CV: RRR, No murmurs, Pulm: Clear b/l, no wheezing/rhonchi/rales Abd: soft, nontender, +BS x4 Ext: no clubbing/cyanosis/edema Neuro: Alert, mentation improved, Strength symmetrical in both legs and arms, unable to appreciate aphasia today Skin: warm/dry Medical - PN: Obj Da - Labs CBC & Chem 7: 07/26/19 04:56 07/28/19 04:48 Labs: Abnormal Lab Results 07/28/19 07/28/19 07/27/19 04:48 01:08 05:24 RDW MPV Bulloch % (Auto) Carbon Dioxide 20 L 19 L BUN 50 H 32 H Creatinine 1.6 H Glucose 274 H Magnesium 1.5 L Lactate Dehydrogenase 254 H Urine Protein 100 A Urine Glucose (UA) 50 A Urine Occult Blood >=1.0 A Ur Leukocyte Esterase 500 A Urine RBC 152 H Urine WBC > 182 H Hyaline Casts 36 H 07/26/19 07/25/19 04:56 04:56 RDW 14.6 H MPV 7.1 L Bulloch % (Auto) 12.2 H Carbon Dioxide BUN Creatinine Glucose 229 H Magnesium Lactate Dehydrogenase Urine Protein Urine Glucose (UA) Urine Occult Blood Ur Leukocyte Esterase Urine RBC Urine WBC Hyaline Casts Meds: Medications Acetaminophen (Tylenol) 650 mg PO Q6HP PRN PRN Reason: PAIN/FEVER > 101 Apixaban (Eliquis) 5 mg PO BID [facility] Last Admin: 07/27/19 20:56 Dose: 5 mg Documented by: Aspirin (Aspirin) 81 mg PO DAILY [facility] Last Admin: 07/27/19 08:50 Dose: 81 mg Documented by: Atorvastatin Calcium (Lipitor) 40 mg PO DAILY [facility] Last Admin: 07/27/19 08:50 Dose: 40 mg Documented by: [facility] Last Admin: 07/27/19 17:27 Dose: 6.25 mg Documented by: Diagnostic Test (Pha) (Accu-Chek) 1 each FS ACHS [facility] Last Admin: 07/27/19 20:55 Dose: 1 each Documented by: Divalproex Sodium (Depakote Sprinkles) 125 mg PO BID [facility] Last Admin: 07/27/19 20:56 Dose: 125 mg Documented by: Docusate Sodium (Colace) 100 mg PO BID [facility] Last Admin: 07/27/19 20:56 Dose: 100 mg Documented by: Enalaprilat (Vasotec) 0.625 mg IV Q3HP PRN PRN Reason: sbp>170 Glipizide (Glucotrol) 10 mg PO BIDCC [facility] Last Admin: 07/27/19 17:27 Dose: 10 mg Documented by: Insulin Glargine (Lantus) 10 unit SQ DAILY [facility] Last Admin: 07/27/19 08:50 Dose: 10 units Documented by: Insulin Human Lispro (Humalog) 0 unit SQ ACHS [facility]; Protocol Last Admin: 07/27/19 20:56 Dose: 8 units Documented by: Isosorbide Mononitrate (Imdur) 30 mg PO DAILY [facility] Last Admin: 07/27/19 11:24 Dose: 30 mg Documented by: Lactulose (Cephulac) 10 gm PO DAILYP PRN PRN Reason: Constipation Last Admin: 07/27/19 17:29 Dose: 10 gm Documented by: Lisinopril (Zestril) 40 mg PO DAILY [facility] Last Admin: 07/27/19 08:49 Dose: 40 mg Documented by: Omeprazole (Prilosec) 20 mg PO ACB [facility] Last Admin: 07/27/19 08:47 Dose: 20 mg Documented by: Ondansetron HCl (Zofran) 4 mg IV Q4HP PRN; Protocol PRN Reason: Nausea And Vomiting Senna (Senokot) 2 tab PO HSP PRN PRN Reason: Constipation Sodium Chloride (Saline Flush) 10 ml IV Q8 [facility] Last Admin: 07/28/19 04:18 Dose: 10 ml Documented by: Trazodone HCl (Desyrel) 25 mg PO DAILY [facility] Last Admin: 07/27/19 08:47 Dose: 25 mg Documented by: Medical - PN: A/P - Time Spent With Patient Total time spent is greater than 50% in coordination of care (as documented) at patient's floor/unit and/or counseling patient: - Narrative A/P Narrative: A: *New onset of stroke, ischemia, symptoms of aphasia improved -CT of the head - negative for acute change; CTA of the head and neck - negative -MRI incompatible in our machine due to IVC filter. Patient would like to have MRI as an outpatient -Repeat CT of head -negative for acute change -echo normal EF, no sig findings *mild oral dysphagia: *HTN: home meds HCTZ 25, Lisinipril 40, Loptressor 25bid, also on imdur 30 *CAD w/stent to LAD 2008: -Had angiogram last year that showed moderate diffuse CAD w/o significant high-grade stenosis, recommended medical therapy *Atrial fibrillation: Rate is controlled, continue Eliquis -Echocardiogram normal EF, no sig findings *SAUL on CKD III: poor oral intake *Type 2 diabetes: A1c 6.4 *h/o colon cancer & prostate cancer status post seed implant: P: -Continue aspirin, added Lipitor -hold HCTZ/ACEI for SAUL, -cont lopressor; was on norvasc and coreg and stopped/changed for low normal BP, likely lower than should be -PT/ OT / ST -follow advice from ST, regular with thin liquids -Continue Eliquis -Sliding scale insulin and continue home medications glipizide, added basal, metformin held for now. was mistakenly on reg diet. -CM for placement -ppx: eliquis/home ppi Medical - PN: Qual - Stroke Onset of Symptoms Date: 07/22/19 Onset of Symptoms Time: 12:00 Symptom Onset Unknown: No - VTE Deep Vein Thrombosis/Pulmonary Embolism Present on Admission: No
[2019-07-28 07:35] LABS: ALT/SGPT 19 U/l (0-40); AST/SGOT 13 U/l (0-37); Albumin 3.3 gm/dL (3.2-5.2); Alkaline Phosphatase 57 U/L (39-117); Bilirubin,Direct < 0.2 mg/dL (0.0-0.3); Globulin 3.4 gm/dL (2.2-3.7); Glucose 296 mg/dL (70-105); Lactate Dehydrogenase 200 U/L (94-250); Phosphorous 4.1 mg/dL (2.7-4.5); Triglycerides 168 mg/dl (<150); Uric Acid 8.3 mg/dL (2.5-8.0)
[2019-07-28] MEDS: OMEPRAZOLE 20 MG CAPSULE PO SCH (07:35)
[2019-07-28] MEDS: glipiZIDE 5 MG TABLET PO SCH ×2 (07:35→17:27)
[2019-07-28] MEDS: CARVEDILOL 6.25 MG TABLET PO SCH (07:35)
[2019-07-28 07:41] LABS: Glomerular Filtration Rate 27
[2019-07-28] MEDS ORDERED: HYDROCORTISONE ACETATE 25 MG SUPP.RECT PR ONE (09:15)
[2019-07-28] MEDS ORDERED: LABETALOL 5 MG/ML ML IV PRN (09:28)
[2019-07-28] MEDS ORDERED: METOPROLOL TARTRATE 5 MG/5 ML VIAL IV PRN (09:40)
[2019-07-28] MEDS ORDERED: 0.9 % SODIUM CHLORIDE 1,500 ML IV SCH (09:45)
[2019-07-28] MEDS: INSULIN GLARGINE, HUMAN 1 UNIT/0.01 ML SQ SCH (09:46)
[2019-07-28] MEDS: INSULIN LISPRO 1 UNIT/0.01 ML UNIT SQ SCH ×6 (09:46→21:32)
[2019-07-28] MEDS: ATORVASTATIN 40 MG TABLET PO SCH (09:47)
[2019-07-28] MEDS: ASPIRIN 81 MG TAB.CHEW PO SCH (09:47)
[2019-07-28] MEDS: APIXABAN 5 MG TABLET PO SCH ×2 (09:47→21:26)
[2019-07-28] MEDS: traZODone HCL 50 MG TABLET PO SCH (09:47)
[2019-07-28] MEDS: cefTRIAXone 2 GM in DEXTROSE 5% IN WATER 50 ML IV SCH (09:48)
[2019-07-28] MEDS: DOCUSATE SODIUM 100 MG CAPSULE PO SCH ×2 (09:57→21:25)
[2019-07-28] MEDS: ISOSORBIDE MONONITRATE 30 MG TAB.XL.24H PO SCH ×2 (10:26→12:30)
[2019-07-28] MEDS: DIVALPROEX 125 MG CAP.SPRINK PO SCH (12:29)
[2019-07-28] MEDS: LISINOPRIL 20 MG TABLET PO SCH (12:30)
[2019-07-28] MEDS: METOPROLOL TARTRATE 25 MG TABLET PO SCH (21:26)
[2019-07-29] MEDS: 0.9 % SODIUM CHLORIDE 10 ML SYRINGE IV SCH (05:45)
[2019-07-29] MEDS ORDERED: DEXTROSE 50% 50 ML VIAL IV PRN (07:21)
[2019-07-29] MEDS ORDERED: DEXTROSE 31 GM ORAL.SUSP PO PRN (07:21)
[2019-07-29] MEDS ORDERED: LABETALOL 5 MG/ML ML IV PRN (07:23)
[2019-07-29] MEDS ORDERED: INSULIN LISPRO 1 UNIT/0.01 ML UNIT SQ SCH (07:30)
[2019-07-29] MEDS: INSULIN GLARGINE, HUMAN 1 UNIT/0.01 ML SQ SCH (08:27)
[2019-07-29] MEDS: traZODone HCL 50 MG TABLET PO SCH (08:28)
[2019-07-29] MEDS: ISOSORBIDE MONONITRATE 30 MG TAB.XL.24H PO SCH (08:28)
[2019-07-29] MEDS: INSULIN LISPRO 1 UNIT/0.01 ML UNIT SQ SCH (08:28)
[2019-07-29] MEDS: DOCUSATE SODIUM 100 MG CAPSULE PO SCH (08:29)
[2019-07-29] MEDS: APIXABAN 5 MG TABLET PO SCH (08:29)
[2019-07-29] MEDS: ATORVASTATIN 40 MG TABLET PO SCH (08:29)
[2019-07-29] MEDS: OMEPRAZOLE 20 MG CAPSULE PO SCH (08:29)
[2019-07-29] MEDS: glipiZIDE 5 MG TABLET PO SCH (08:29)
[2019-07-29] MEDS: ASPIRIN 81 MG TAB.CHEW PO SCH (08:29)
[2019-07-29 08:47] LABS: ALT/SGPT 16 U/l (0-40); AST/SGOT 13 U/l (0-37); Albumin 3.4 gm/dL (3.2-5.2); Albumin/Globulin Ratio 1.1 (1.0-2.3); Alkaline Phosphatase 55 U/L (39-117); Bilirubin,Direct < 0.2 mg/dL (0.0-0.3); Bilirubin,Total 0.4 mg/dL (0.0-1.0); Blood Urea Nitrogen 35 mg/dl (8-23); Calcium 9.9 mg/dl (8.6-10.4); Carbon Dioxide 24 mmol/L (22-30); Chloride 103 mmol/L (96-108); Globulin 3.1 gm/dL (2.2-3.7); Glomerular Filtration Rate 38; Glucose 143 mg/dL (70-105); Lactate Dehydrogenase 166 U/L (94-250); Phosphorous 3.8 mg/dL (2.7-4.5); Triglycerides 120 mg/dl (<150); Uric Acid 8.4 mg/dL (2.5-8.0)
[2019-07-29] MEDS: cefTRIAXone 2 GM in DEXTROSE 5% IN WATER 50 ML IV SCH (08:51)
[2019-07-29] MEDS: METOPROLOL TARTRATE 25 MG TABLET PO SCH (08:51)
[2019-07-29] MEDS ORDERED: metFORMIN 850 MG TABLET PO SCH ×2 (09:00→21:00)
== END 2019-07-29 10:55 | DRG 65 ==
LOC: ED 14:39 → ICU 20:51 → MEDSUR 07-24 22:58 → ICU 07-24 23:01 → MEDSUR 07-24 23:23
PROVIDERS: ADMIT Internal Medicine; ATTEND Internal Medicine

== ENCOUNTER 2019-11-27 09:38 | Inpatient (IN) ==
[2019-11-27] MEDS ORDERED: fentaNYL 100 MCG/2 ML VIAL IV ONE ×3 (10:10→11:48)
--- NOTE | 2019-11-27 10:31 | Emergency Department Note ---
Back Pain HPI - General Chief Complaint: Back Pain/Injury Stated Complaint: back pain Time Seen by Provider: 11/27/19 09:44 Source: patient Limitations: no limitations - History of Present Illness HPI Narrative: 89-year-old male patient brought into the emergency department via EMS with chief complaint of persistent and worsening low back pain. He was seen by my colleagues yesterday (11/25) and during that visit he was diagnosed with a acute T12 inferior endplate fracture that appeared stable. He was treated conservatively with outpatient opioids and told to follow-up with his primary care provider. His , who accompanies him today, tells me that at home he took hydrocodone for sleeping and slept for approximately 4 hours. He woke up in the middle of the night to use the restroom and took an additional hydrocodone. This morning he woke up with worsening pain and took a third hydrocodone around 0830. Unfortunately he has been debilitated and unable to move since this morning. Every time he moves there is a worsening pain to his back. Both he and his deny any instability to his lower extremities. He denies any radiculopathy. He denies any saddle anesthesia or worsening to his urinary continence. He denies any incontinence to his stools. He denies any fever, sweats, chills. He denies shortness of breath. He denies retrosternal chest pain or palpitations. He denies abdominal pain, nausea, or vomiting. Review of his active problems shows the following: Chronic atrial fibrillation, CVA x2, type 2 diabetes, CAD, history of [place], hyperlipidemia, hypertension, history of pulmonary emboli, history of renal stones, history of prostate CA, history of colon CA. - Related Data Home Medications Medication Instructions Recorded Confirmed B2/Vits A,C,E/Lut/Zeaxanth/Min 1 each PO BID 09/25/18 11/24/19 [Icaps Tablet] Calcium Polycarbophil [Fiber 625 mg PO DAILY 09/25/18 11/27/19 Laxative] Docusate Sodium [Colace] 100 mg PO QAM 09/25/18 11/24/19 Hydrochlorothiazide [Oretic] 25 mg PO DAILY 09/25/18 11/27/19 Isosorbide Mononitrate [Imdur] 30 mg PO DAILY 09/25/18 11/27/19 Lisinopril [Zestril] 40 mg PO DAILY 09/25/18 11/27/19 Omeprazole [Prilosec] 20 mg PO DAILY 09/25/18 11/27/19 glipiZIDE [Glucotrol] 10 mg PO BID 09/25/18 11/27/19 metFORMIN HCL [Metformin HCl] 1,275 mg PO QAM 09/25/18 11/27/19 metFORMIN HCL [Metformin HCl] 850 mg PO HS 09/25/18 11/24/19 Magnesium Amino Acid Chelate 400 mg PO BID 07/22/19 11/27/19 [Magnesium] aspirin 325 mg tablet,delayed 325 mg PO QDAY 11/24/19 11/27/19 release metFORMIN [Glucophage] 850 mg PO HS 11/27/19 11/27/19 Previous Rx's Medication Instructions Recorded Atorvastatin [Lipitor] 40 mg PO DAILY #30 tab 07/27/19 Metoprolol Tartrate [Lopressor] 25 mg PO BID #1 tab 07/28/19 HYDROcodone/APAP 5/325MG [[place] 1 tab PO Q4HP PRN #20 tab 11/26/19 5-325Mg] Allergies Allergy/AdvReac Type Severity Reaction Status Date / Time Penicillins [PENICILLINS] Allergy Intermediate Hives Verified 11/27/19 09:41 Sulfa (Sulfonamide Allergy Intermediate Hives Verified 11/27/19 09:41 Antibiotics) [SULFA (SULFONAMIDE ANTIBIOTICS)] Review of Systems All systems ED: reviewed and negative except as stated. Past Medical History - Past Medical History Medical history: Reports: atrial fibrillation, CVA, dementia, kidney stones, pulmonary embolus, other (Colon cancer, right arm melanoma, prostate cancer, cataracts) Psychiatric history: Denies: anxiety, depression Surgical history ED: Reports: other (Appendectomy, lithotripsy, prostate cancer implant, cataracts, multiple heart caths, [place] filter) - Social History smoking status: Never smoker Alcohol use: Reports: None (Former; none since 2000) Drug use: Reports: none. Denies: marijuana Physical Exam Limitations: no limitations General appearance: alert, grimacing, in no apparent distress, other (Well- developed, well-nourished, 89-year-old male patient laying supine on the emergency room gurney in no acute distress until he moves.) Head: atraumatic, normocephalic Eye: Present: normal appearance, PERRL, EOMI. Absent: scleral icterus, conjunctival injection ENT: Present: normal oropharynx, mucous membranes moist Neck: Present: trachea midline. Absent: lymphadenopathy, thyromegaly Chest: Present: symmetric chest wall rise Respiratory: Present: normal lung sounds bilaterally. Absent: respiratory distress, wheezes, stridor, accessory muscle use, prolonged expiratory phase Cardiovascular: Present: regular rate, normal rhythm. Absent: systolic murmur, diastolic murmur Abdominal: Present: soft. Absent: distention, tenderness, guarding, rebound, rigidity, organomegaly, mass Extremities: Present: normal inspection, normal capillary refill. Absent: full ROM (Patient is considerably decreased range of motion to his right side associated with previous CVA), pedal edema Back: Present: L-S tenderness, straight leg raise (R) (To 15 degrees), straight leg raise (L) (To 15 degrees), other (Patient unable to sit up or ambulate at this time secondary to pain. Attempt was made to evaluate his spine while layin g on the gurney. He does have exquisite tenderness to palpation to his mid spine at approximately T12-L1 area.) Neurological: Present: alert, oriented X3, motor sensory deficit (Sensation grossly intact light touch throughout all areas of the lower extremities. Equal push pull with feet bilateral.), reflexes normal Psychiatric: Present: normal affect, normal mood Skin: Present: warm, dry Course Course Narrative: Patient was brought into the emergency department and a history and physical exam was performed. I discussed the case briefly with my collaborating physician (Dr. Martinez) to determine if additional imaging are warranted. At this time Dr. Martinez recommended IV pain control using fentanyl because it has been shown to have a better side effect profile in older patients. With this in mind, saline lock was started and the patient was given fentanyl 25 mcg IVP. After approximately 20 minutes an attempt was made to get the patient to sit up at the bedside and briefly ambulate. Unfortunately, patient was unable to do so secondary to pain. He was placed back into bed and made comfortable. Repeat fentanyl 25 mcg IVP was provided. Upon reevaluation patient continues to cry out in pain anytime he is moved into a seated position. He was given a third fentanyl 25 mg IVP in attempt to control his pain and get him up to move around. Upon reevaluation patient continues to be unable to sit or stand secondary to debilitating pain. Knowing this, I reached out to our hospitalist (Dr. Alcantar) about admitting the patient for pain control. At this time the hospitalist did request that orthopedic surgery be consulted. With this in mind, I reached out to our on- call orthopedic surgeon (Dr. Rodriguez) I discussed the case with him. The orthopedic surgeon did mention that based on the patient's injury of T12 endplate fracture he should be placed within a TLSO brace. He mentioned that many of these patients can have this brace placed as an outpatient. If the patient were to fail bracing then a consult to the pain clinic would be warranted for localized injection therapy. At this time, the patient is not in need of spinal surgery. With this in mind, I reached back out to our hospitalist and discussed the case once again with him. The patient is not able to get up, move about, and is in considerable pain with any form of movement. He still needs to be admitted to the hospital for pain control. After reviewing the patient's need for the specialized bracing system, Dr. Alcantar has consented to admit the patient for pain control. All further treatment decisions, modalities, and ultimate patient disposition will be carried out by Dr. Alcantar. Vital Signs Temperature 97.0 F 11/27/19 09:38 Pulse Rate 75 11/27/19 09:38 Respiratory Rate 18 11/27/19 09:38 Blood Pressure 194/77 11/27/19 09:38 Pulse Oximetry (%) 93 11/27/19 09:38 Temperature 97.0 F 11/27/19 09:38 Pulse Rate 81 11/27/19 12:19 Respiratory Rate 16 11/27/19 12:19 Blood Pressure 188/95 11/27/19 12:19 Pulse Oximetry (%) 94 11/27/19 12:19 Disposition Pt seen by [facility]/PA only: Yes Clinical Impression: Intractable back pain Fracture of T12 vertebra Qualifiers: Encounter type: subsequent encounter Fracture type: closed Fracture morphology: unspecified fracture morphology Fracture healing: with routine healing Qualified Code(s): S22.089D - Unspecified fracture of T11-T12 vertebra, subsequent encounter for fracture with routine healing Disposition: Xfer As Outpt/Obs ([facility]) Condition: Fair Additional Instructions: Patient is going to be admitted to the hospital under the care of the hospitalist (Dr. Alcantar). All further treatment decisions, modalities, and ultimate patient disposition be carried out by Dr. Alcantar. Referrals: Yovani Laguerre MD [Primary Care Provider] -
[2019-11-27] MEDS ORDERED: ONDANSETRON 4 MG/2 ML VIAL IV PRN ×2 (14:04→14:39)
[2019-11-27] MEDS ORDERED: DEXTROSE 50% 50 ML VIAL IV PRN ×2 (14:04→14:39)
[2019-11-27] MEDS ORDERED: HYDROmorphone* 2 MG/ML VIAL IV PRN ×2 (14:04→14:39)
[2019-11-27] MEDS ORDERED: DEXTROSE 31 GM ORAL.SUSP PO PRN ×2 (14:04→14:39)
[2019-11-27] MEDS ORDERED: 0.9 % SODIUM CHLORIDE 1,000 ML IV SCH (14:15)
--- NOTE | 2019-11-27 14:19 | Internal Med History&Physical ---
Medical - H&P: [facility] Patient information: Note initiated : 11/27/19 at 2:16 pm Service Date, if different from initiated Date: [] Patient: Sherif Lawson a 89 y/o M admitted on for back pain. Chief Complaint: [back pain] History of present illness: Mr. Lawson is a 89 year old M with a history of high blood pressure relation, CVA, diabetes type 2, CAD, and history of her pulmonary emboli who was brought to back pain. As per patient and , patient had a mechanical fall on Sunday (3 days ago). Denies loss of consciousness. After that, he developed back pain. He visited ER, he was diagnosed with acute T12 inferior endplate fracture. He was treated with the pain management. At home, he was treated by hydrocodone. His pain has been worsening since yesterday. The pain has become so severe so that he is not able to move. He admits that he does not have much pain when he stays in bed without movement. Today he visited the ER again. Orthopedist Dr. Ambriz was consulted who suggested medical management with a TLSO brace. If he were to fail bracing then a consult to the pain clinic would be warranted for localized injection therapy. When I saw this patient in the ER, other than symptoms mentioned above, she denied headache, dizziness, chest pain, shortness of breath, abdominal pain, nausea, vomiting, urinary or oral bowel movement incontinence or dysuria. Review of systems: Positive for back pain all other systems were reviewed and are negative. Medical - H&P: [facility] Medical history: Chronic atrial fibrillation, CVA x2, type 2 diabetes, CAD, history of [place], hyperlipidemia, hypertension, history of pulmonary emboli, history of renal stones, history of prostate CA, history of colon C Family history: reviewed and not pertinent (Both parents had a high blood pressure) Smoking status: Never smoker Drug use: none Alcohol use: none Medical - H&P: Meds Home Medications Medication Instructions Recorded Confirmed Type Calcium Polycarbophil [Fiber 625 mg PO DAILY 09/25/18 11/27/19 History Laxative] Hydrochlorothiazide [Oretic] 25 mg PO DAILY 09/25/18 11/27/19 History Isosorbide Mononitrate [Imdur] 30 mg PO DAILY 09/25/18 11/27/19 History Lisinopril [Zestril] 40 mg PO DAILY 09/25/18 11/27/19 History Omeprazole [Prilosec] 20 mg PO DAILY 09/25/18 11/27/19 History glipiZIDE [Glucotrol] 10 mg PO BID 09/25/18 11/27/19 History metFORMIN HCL [Metformin HCl] 1,275 mg PO QAM 09/25/18 11/27/19 History metFORMIN HCL [Metformin HCl] 850 mg PO HS 09/25/18 11/24/19 History Magnesium Amino Acid Chelate 400 mg PO BID 07/22/19 11/27/19 History [Magnesium] Metoprolol Tartrate [Lopressor] 25 mg PO BID #1 tab 07/28/19 11/27/19 Rx aspirin 325 mg tablet,delayed 325 mg PO QDAY 11/24/19 11/27/19 History release Insulin Aspart [Novolog] 0 unit SQ PRN PRN 11/27/19 11/27/19 History Insulin Glargine,Hum.rec.anlog 10 unit SQ DAILY 11/27/19 11/27/19 History [Basaglar Kwikpen U-100] metFORMIN [Glucophage] 850 mg PO HS 11/27/19 11/27/19 History Allergies Allergy/AdvReac Type Severity Reaction Status Date / Time Penicillins [PENICILLINS] Allergy Intermediate Hives Verified 11/27/19 09:41 Sulfa (Sulfonamide Allergy Intermediate Hives Verified 11/27/19 09:41 Antibiotics) [SULFA (SULFONAMIDE ANTIBIOTICS)] Medical - H&P: Exam - Constitutional Vitals: Temp Pulse Resp BP Pulse Ox 97.0 F 81 16 188/92 95 11/27/19 09:38 11/27/19 13:51 11/27/19 13:51 11/27/19 13:51 11/27/19 13:51 - Other Additional findings: General -mild acute distress due to back pain Eyes - PERRLA, EOM intact ENT no rhinorrhea, no noticeable or palpable swelling, no redness or rash around throat or on face Neck supple, no JVD, no thyromegaly Respiratory: Lungs - diminshed BS, no wheezing and crackles. Cardiovascular - RRR no m/r/g, GI - Normal bowel sounds, no distended, soft. Extremeties - No edema, cyanosis or clubbing Back: severe tenderness over T12. Hemo/lymphatic/immune no lymphadenopathy Neurological Alert and oriented x 3, no focal neurological deficits. Psychiatry flat affect Medical - H&P: A/P - Narrative A/P Narrative: Assessment: 1. Acute T12 inferior endplate fracture 2. Hypertensive urgency 3. Chronic atrial fibrillation 4. Hx of CVA x2 5. Diabetes type 2 6. CAD, history of [place] 7. Hypertension 8. History of pulmonary emboli, 9. History of prostate CA and colon cancer 10. Hx of melanoma Plan: 1. Imaging showed 1. Acute T12 inferior endplate fracture. There is no retropulsion or spinal canal stenosis. No evidence for pathologic fracture. Multilevel degenerative disc disease and facet arthropathy. No disc herniation. No spinal canal stenoses. Conus medullaris and cauda equina are normal. No epidural abnormality. As per orthopedics Dr. Ambriz, medical treatment with a TLSO brace. If the patient were to fail bracing then a consult to the pain clinic would be warranted for localized injection therapy. PT pain management with IV morphine and the Dilaudid Pulmonary toilet 2. Continue home medications for blood pressure HTCZ 25 mg daily, Imdur 30 mg daily, lisinopril 40 mg daily, metoprolol 25 mg twice daily Hydralazine as needed 3. For atrial fibrillation, heart rate controlled. Patient was on Eliquis which was discontinued in September by his doctor. 4. Continue aspirin and added Lipitor 40 mg daily 5. Patient has a history of PE. He was treated by filter and Eliquis. The filter was removed and the Eliquis was discontinued by his doctor. 6. for History of prostate cancer, colon cancer and melanoma, follow with PCP and oncologist 7. DVT prophylaxis: Heparin 8. CODE STATUS: DNR and DNI
[2019-11-27] MEDS ORDERED: hydrALAZINE 20 MG/ML VIAL IV PRN (14:36)
[2019-11-27] MEDS: 0.9 % SODIUM CHLORIDE 1,000 ML IV SCH (14:43)
[2019-11-27 15:08] LABS: Basophils # (Auto) 0.03 K/mcL (0.00-0.30); Basophils % (Auto) 0.4 % (0.0-2.0); Eosinophils # (Auto) 0.25 K/mcL (0.00-0.70); Eosinophils % (Auto) 2.9 % (0.0-7.0); Granulocytes % (Auto) 76.1 % (38.0-78.0); Hematocrit 44.5 % (40.1-51.0); Hemoglobin 15.8 g/dL (13.7-17.5); Lymphocytes # (Auto) 0.93 K/mcL (1.50-4.80); Lymphocytes % (Auto) 10.9 % (15.5-49.0); Mean Cell Volume 96.9 fL (80.0-100.0); Mean Corpuscular HGB Conc 35.5 g/dL (31.0-36.0); Mean Platelet Volume 9.7 fL (7.4-10.4); Monocytes # (Auto) 0.83 K/mcL (0.10-0.90); Monocytes % (Auto) 9.7 % (1.0-12.0); Platelet Count 149 K/mcL (140-440); RBC 4.59 M/mcL (4.63-6.08); Red Cell Distribution Width 13.8 % (11.5-14.5); WBC 8.6 K/mcL (4.50-11.00)
[2019-11-27 15:14] LABS: proBNP 556.2 pg/ml (0-450)
[2019-11-27 15:16] LABS: ALT/SGPT 21 U/l (0-40); AST/SGOT 15 U/l (0-37); Albumin 3.6 gm/dL (3.2-5.2); Albumin/Globulin Ratio 0.9 (1.0-2.3); Alkaline Phosphatase 65 U/L (39-117); Bilirubin,Total 0.8 mg/dL (0.0-1.0); Blood Urea Nitrogen 22 mg/dl (8-23); Calcium 10.4 mg/dl (8.6-10.4); Carbon Dioxide 25 mmol/L (22-30); Chloride 102 mmol/L (96-108); Glomerular Filtration Rate 45; Glucose 261 mg/dL (70-105)
[2019-11-27] MEDS ORDERED: glipiZIDE 5 MG TABLET PO SCH (17:00)
[2019-11-27] MEDS ORDERED: INSULIN LISPRO 1 UNIT/0.01 ML UNIT SQ SCH (17:00)
[2019-11-27] MEDS: glipiZIDE 5 MG TABLET PO SCH (17:05)
[2019-11-27] MEDS: INSULIN LISPRO 1 UNIT/0.01 ML UNIT SQ SCH ×2 (17:05→21:39)
[2019-11-27] MEDS: hydrALAZINE 20 MG/ML VIAL IV PRN (19:00)
[2019-11-27] MEDS ORDERED: METOPROLOL TARTRATE 25 MG TABLET PO SCH (21:00)
[2019-11-27] MEDS ORDERED: SENNOSIDES 1 TABLET PO SCH (21:00)
[2019-11-27] MEDS ORDERED: DOCUSATE SODIUM 100 MG CAPSULE PO SCH (21:00)
[2019-11-27] MEDS ORDERED: HEPARIN 5,000 UNIT/ML VIAL SQ SCH (21:00)
[2019-11-27] MEDS: SENNOSIDES 1 TABLET PO SCH (21:38)
[2019-11-27] MEDS: DOCUSATE SODIUM 100 MG CAPSULE PO SCH (21:38)
[2019-11-27] MEDS: METOPROLOL TARTRATE 25 MG TABLET PO SCH (21:38)
[2019-11-27] MEDS: BACLOFEN 10 MG TABLET PO SCH (21:38)
[2019-11-27] MEDS: HEPARIN 5,000 UNIT/ML VIAL SQ SCH (21:39)
[2019-11-27] MEDS: 0.9 % SODIUM CHLORIDE 10 ML SYRINGE IV SCH (21:39)
[2019-11-27] MEDS ORDERED: 0.9 % SODIUM CHLORIDE 10 ML SYRINGE IV SCH (22:00)
--- NOTE | 2019-11-27 23:28 | Event Note ---
Advanced Care Planning Documents: Parties in Attendance: Patient and Decisional Capacity: Yes POLST form completed: not I explained the process regarding CPR, defibrillation, shock, and intubation and medication treatment to the patient and . Pt declined CRP/resuscitation and intubation. agreed with the decision.
[2019-11-28] MEDS: 0.9 % SODIUM CHLORIDE 10 ML SYRINGE IV SCH ×3 (05:02→23:08)
[2019-11-28 06:38] LABS: Basophils # (Auto) 0.04 K/mcL (0.00-0.30); Basophils % (Auto) 0.5 % (0.0-2.0); Eosinophils # (Auto) 0.16 K/mcL (0.00-0.70); Granulocytes % (Auto) 74.2 % (38.0-78.0); Hematocrit 43.3 % (40.1-51.0); Lymphocytes # (Auto) 1.08 K/mcL (1.50-4.80); Lymphocytes % (Auto) 13.3 % (15.5-49.0); Mean Cell Volume 99.1 fL (80.0-100.0); Mean Corpuscular HGB Conc 34.6 g/dL (31.0-36.0); Mean Platelet Volume 9.5 fL (7.4-10.4); Monocytes # (Auto) 0.81 K/mcL (0.10-0.90); Platelet Count 148 K/mcL (140-440); RBC 4.37 M/mcL (4.63-6.08); Red Cell Distribution Width 13.7 % (11.5-14.5); WBC 8.1 K/mcL (4.50-11.00)
[2019-11-28 07:00] LABS: ALT/SGPT 20 U/l (0-40); AST/SGOT 16 U/l (0-37); Albumin 3.2 gm/dL (3.2-5.2); Albumin/Globulin Ratio 0.9 (1.0-2.3); Alkaline Phosphatase 60 U/L (39-117); Bilirubin,Total 0.7 mg/dL (0.0-1.0); Blood Urea Nitrogen 22 mg/dl (8-23); Calcium 9.7 mg/dl (8.6-10.4); Carbon Dioxide 24 mmol/L (22-30); Chloride 105 mmol/L (96-108); Globulin 3.6 gm/dL (2.2-3.7); Glomerular Filtration Rate 49; Glucose 277 mg/dL (70-105)
[2019-11-28 07:09] LABS: Estimated Average Glucose(eAG) 183 mg/dL
[2019-11-28] MEDS ORDERED: OMEPRAZOLE 20 MG CAPSULE PO SCH (07:30)
[2019-11-28] MEDS: INSULIN LISPRO 1 UNIT/0.01 ML UNIT SQ SCH ×4 (07:34→22:59)
[2019-11-28] MEDS: glipiZIDE 5 MG TABLET PO SCH ×2 (07:35→16:56)
[2019-11-28] MEDS: OMEPRAZOLE 20 MG CAPSULE PO SCH (07:35)
[2019-11-28] MEDS ORDERED: ASPIRIN 325 MG ENTERIC COATED TABLET PO SCH (09:00)
[2019-11-28] MEDS ORDERED: HYDROCHLOROTHIAZIDE 25 MG TABLET PO SCH (09:00)
[2019-11-28] MEDS ORDERED: CALCIUM POLYCARBOPHIL 1 TABLET PO SCH (09:00)
[2019-11-28] MEDS ORDERED: LISINOPRIL 20 MG TABLET PO SCH (09:00)
[2019-11-28] MEDS ORDERED: ISOSORBIDE MONONITRATE 30 MG TAB.XL.24H PO SCH (09:00)
[2019-11-28] MEDS: HYDROCHLOROTHIAZIDE 25 MG TABLET PO SCH (09:15)
[2019-11-28] MEDS: ATORVASTATIN 40 MG TABLET PO SCH (09:15)
[2019-11-28] MEDS: METOPROLOL TARTRATE 25 MG TABLET PO SCH ×3 (09:15→23:08)
[2019-11-28] MEDS: LISINOPRIL 20 MG TABLET PO SCH (09:15)
[2019-11-28] MEDS: BACLOFEN 10 MG TABLET PO SCH ×4 (09:15→23:08)
[2019-11-28] MEDS: ASPIRIN 325 MG ENTERIC COATED TABLET PO SCH (09:16)
[2019-11-28] MEDS: ISOSORBIDE MONONITRATE 30 MG TAB.XL.24H PO SCH (09:16)
[2019-11-28] MEDS: HEPARIN 5,000 UNIT/ML VIAL SQ SCH ×2 (09:16→23:00)
[2019-11-28] MEDS: DOCUSATE SODIUM 100 MG CAPSULE PO SCH ×2 (09:16→23:06)
[2019-11-28] MEDS: CALCIUM POLYCARBOPHIL 1 TABLET PO SCH (09:18)
[2019-11-28] MEDS: 0.9 % SODIUM CHLORIDE 1,000 ML IV SCH (10:34)
--- NOTE | 2019-11-28 15:52 | Internal Med Progress Note ---
Medical - PN: Subj Patient information: Note initiated : 11/28/19 at 3:44 pm Service Date, if different from initiated Date: [] Patient: Sherif Lawson a 89 y/o M admitted on 11/27/19 for back pain. Chief Complaint: [] Mr. Lawson is a 89 year old M with a history of high blood pressure relation, CVA, diabetes type 2, CAD, and history of her pulmonary emboli who was brought to back pain. As per patient and , patient had a mechanical fall on Sunday (3 days ago). Denies loss of consciousness. After that, he developed back pain. He visited ER, he was diagnosed with acute T12 inferior endplate fracture. He was treated with the pain management. At home, he was treated by hydrocodone. His pain has been worsening since yesterday. The pain has become so severe so that he is not able to move. He admits that he does not have much pain when he stays in bed without movement. Today he visited the ER again. Orthopedist Dr. Ambriz was consulted who suggested medical management with a TLSO brace. If he were to fail bracing then a consult to the pain clinic would be warranted for localized injection therapy. When I saw this patient in the ER, other than symptoms mentioned above, she denied headache, dizziness, chest pain, shortness of breath, abdominal pain, nausea, vomiting, urinary or oral bowel movement incontinence or dysuria. 11/27 Pt feels much better, less pain. When I saw him, he was sitting on bed to eat his lunch. BP better controlled BG is uncontrolled. He is on lantus 10units daily, will start him on lantus 8 units daily Discussed with orth Dr. Ambriz, continue medical treatment and TLSO brace ordered - Constitutional Vitals: Vital Signs Temp Pulse Resp BP Pulse Ox 97.1 F 66 20 113/73 94 11/28/19 11:34 11/28/19 04:00 11/28/19 11:34 11/28/19 11:34 11/28/19 11:34 Period Temp Pulse Resp BP Sys/Vides Pulse Ox Last 24 Hr 97.1 F-99.1 F 66-105 18-22 113-201/61-101 88-98 Intake and Output 11/28/19 11/28/19 11/28/19 05:59 13:59 21:59 Intake Total 200 1093 Output Total 725 Balance -525 1093 Weight 79.379 kg Patient Weight 11/29/19 05:59 Weight 79.379 kg Intake & Output: Intake & Output 11/28/19 11/28/19 11/28/19 05:59 13:59 21:59 Intake Total 200 1093 Output Total 725 Balance -525 1093 Weight 79.379 kg Intake: IV 993 Sodium Chloride 0.9% 1,000 ml @ 993 50 mls/hr IV .Q20H DOUGLAS Rx#: [id number] Oral 200 100 Output: Urine Catheter Amount 725 Other: Meal Lunch Percent of Meal Consumed Refused Feeding Ability Independent Urine Appearance Clear Urine Color Dark Yellow Urine Odor Normal - Additional findings Additional findings: General -mild acute distress due to back pain Eyes - PERRLA, EOM intact ENT no rhinorrhea, no noticeable or palpable swelling, no redness or rash around throat or on face Neck supple, no JVD, no thyromegaly Respiratory: Lungs - diminshed BS, no wheezing and crackles. Cardiovascular - RRR no m/r/g, GI - Normal bowel sounds, no distended, soft. Extremeties - No edema, cyanosis or clubbing Back: severe tenderness over T12. Hemo/lymphatic/immune no lymphadenopathy Neurological Alert and oriented x 3, no focal neurological deficits. Psychiatry flat affect Medical - PN: Obj Da - Labs CBC & Chem 7: 11/28/19 05:14 11/28/19 05:14 Labs: Abnormal Lab Results 11/28/19 11/28/19 11/27/19 05:14 05:14 14:44 RBC 4.37 L 4.59 L MCH 34.3 H 34.4 H Lymph % (Auto) 13.3 L 10.9 L Lymph # (Auto) 1.08 L 0.93 L Creatinine 1.3 H Glucose 277 H Hemoglobin A1c 8.0 H NT-Pro-B Natriuret Pep Globulin Albumin/Globulin Ratio 0.9 L 11/27/19 14:22 RBC MCH Lymph % (Auto) Lymph # (Auto) Creatinine 1.4 H Glucose 261 H Hemoglobin A1c NT-Pro-B Natriuret Pep 556.2 H Globulin 4.0 H Albumin/Globulin Ratio 0.9 L Meds: Medications Aspirin (Ecotrin) 325 mg PO QDAY [facility] Last Admin: 11/28/19 09:16 Dose: 325 mg Documented by: Atorvastatin Calcium (Lipitor) 40 mg PO DAILY [facility] Last Admin: 11/28/19 09:15 Dose: 40 mg Documented by: Baclofen (Lioresal) 5 mg PO TID [facility] Last Admin: 11/28/19 15:22 Dose: 5 mg Documented by: Calcium Polycarbophil (Fibercon) 1 tab PO Q48H [facility] Last Admin: 11/28/19 09:18 Dose: 1 tab Documented by: Dextrose (Dextrose 50%) 0 ml IV UD PRN PRN Reason: Hypoglycemia Diagnostic Test (Pha) (Accu-Chek) 1 each FS ACHS [facility] Last Admin: 11/28/19 11:37 Dose: 1 each Documented by: Docusate Sodium (Colace) 100 mg PO BID [facility] Last Admin: 11/28/19 09:16 Dose: 100 mg Documented by: Glipizide (Glucotrol) 10 mg PO BIDAC [facility] Last Admin: 11/28/19 07:35 Dose: 10 mg Documented by: Glucose (Insta-Glucose) 15 gm PO PRN PRN PRN Reason: Hypoglycemia Heparin Sodium (Porcine) (Heparin) 5,000 unit SQ Q12 [facility] Last Admin: 11/28/19 09:16 Dose: 5,000 unit Documented by: Hydralazine HCl (Apresoline) 10 mg IV Q4HP PRN PRN Reason: Hypertension Last Admin: 11/27/19 19:00 Dose: 10 mg Documented by: Hydrochlorothiazide (Oretic) 25 mg PO DAILY [facility] Last Admin: 11/28/19 09:15 Dose: 25 mg Documented by: Hydromorphone HCl (Dilaudid) 0.5 mg IV Q2HP PRN; Protocol PRN Reason: Per Pain Protocol Last Admin: 11/27/19 19:19 Dose: 0.5 mg Documented by: Sodium Chloride (Sodium Chloride 0.9%) 1,000 mls @ 50 mls/hr IV .Q20H [facility] Last Admin: 11/28/19 10:34 Dose: 50 mls/hr Documented by: Insulin Human Lispro (Humalog) 0 unit SQ ACHS [facility]; Protocol Last Admin: 11/28/19 11:40 Dose: 8 units Documented by: Isosorbide Mononitrate (Imdur) 30 mg PO DAILY [facility] Last Admin: 11/28/19 09:16 Dose: 30 mg Documented by: Lisinopril (Zestril) 40 mg PO DAILY [facility] Last Admin: 11/28/19 09:15 Dose: 40 mg Documented by: Metoprolol Tartrate (Lopressor) 25 mg PO BID [facility] Last Admin: 11/28/19 09:15 Dose: 25 mg Documented by: Morphine Sulfate (Morphine) 2 mg IV Q4HP PRN; Protocol PRN Reason: Per Pain Protocol Last Admin: 11/28/19 03:59 Dose: 2 mg Documented by: Omeprazole (Prilosec) 20 mg PO ACB [facility] Last Admin: 11/28/19 07:35 Dose: 20 mg Documented by: Ondansetron HCl (Zofran) 4 mg IV Q6HP PRN PRN Reason: Nausea And Vomiting Senna (Senokot) 2 tab PO HS [facility] Last Admin: 11/27/19 21:38 Dose: 2 tab Documented by: Sodium Chloride (Saline Flush) 10 ml IV Q8 [facility] Last Admin: 11/28/19 13:49 Dose: Not Given Documented by: Medical - PN: A/P - Time Spent With Patient Total time spent is greater than 50% in coordination of care (as documented) at patient's floor/unit and/or counseling patient: - Narrative A/P Narrative: Assessment: 1. Acute T12 inferior endplate fracture 2. Hypertensive urgency 3. Chronic atrial fibrillation 4. Hx of CVA x2 5. Diabetes type 2 6. CAD, history of [place] 7. Hypertension 8. History of pulmonary emboli, 9. History of prostate CA and colon cancer 10. Hx of melanoma Plan: 1. Imaging showed Acute T12 inferior endplate fracture. There is no retropulsion or spinal canal stenosis. No evidence for pathologic fracture. Multilevel degenerative disc disease and facet arthropathy. No disc herniation. No spinal canal stenoses. Conus medullaris and cauda equina are normal. No epidural abnormality. As per orthopedics Dr. Ambriz, medical treatment with a TLSO brace. If the patient were to fail bracing then a consult to the pain clinic would be warranted for localized injection therapy. TLSO brace was ordered PT pain management with IV morphine and the Dilaudid Pulmonary toilet 2. Continue home medications for blood pressure HTCZ 25 mg daily, Imdur 30 mg daily, lisinopril 40 mg daily, metoprolol 25 mg twice daily Hydralazine as needed 3. For atrial fibrillation, heart rate controlled. Patient was on Eliquis which was discontinued in September by his doctor. 4. Continue aspirin and added Lipitor 40 mg daily 5. Patient has a history of PE. He was treated by filter and Eliquis. The filter was removed and the Eliquis was discontinued by his doctor. 6. for History of prostate cancer, colon cancer and melanoma, follow with PCP and oncologist 7. BG is uncontrolled. Home medication include Lantus 10 units daily. I would like to start him on 8 units daily insulin sliding scale 8. DVT prophylaxis: Heparin 9. CODE STATUS: DNR and DNI Medical - PN: Qual - VTE Deep Vein Thrombosis/Pulmonary Embolism Present on Admission: No
[2019-11-28] MEDS: SENNOSIDES 1 TABLET PO SCH ×2 (22:59→23:08)
[2019-11-29] MEDS: hydrALAZINE 20 MG/ML VIAL IV PRN ×2 (04:05→19:21)
[2019-11-29] MEDS: 0.9 % SODIUM CHLORIDE 10 ML SYRINGE IV SCH ×2 (05:50→13:02)
[2019-11-29 06:56] LABS: Basophils # (Auto) 0.04 K/mcL (0.00-0.30); Basophils % (Auto) 0.5 % (0.0-2.0); Eosinophils # (Auto) 0.16 K/mcL (0.00-0.70); Granulocytes % (Auto) 72.3 % (38.0-78.0); Hematocrit 43.5 % (40.1-51.0); Hemoglobin 14.8 g/dL (13.7-17.5); Lymphocytes # (Auto) 1.03 K/mcL (1.50-4.80); Lymphocytes % (Auto) 13.2 % (15.5-49.0); Mean Cell Volume 100.5 fL (80.0-100.0); Mean Platelet Volume 9.9 fL (7.4-10.4); Monocytes # (Auto) 0.94 K/mcL (0.10-0.90); Platelet Count 149 K/mcL (140-440); RBC 4.33 M/mcL (4.63-6.08); Red Cell Distribution Width 13.9 % (11.5-14.5); WBC 7.8 K/mcL (4.50-11.00)
[2019-11-29 07:07] LABS: ALT/SGPT 20 U/l (0-40); AST/SGOT 16 U/l (0-37); Albumin 3.1 gm/dL (3.2-5.2); Albumin/Globulin Ratio 0.8 (1.0-2.3); Alkaline Phosphatase 60 U/L (39-117); Bilirubin,Total 0.6 mg/dL (0.0-1.0); Calcium 10.1 mg/dl (8.6-10.4); Carbon Dioxide 23 mmol/L (22-30); Chloride 106 mmol/L (96-108); Globulin 3.9 gm/dL (2.2-3.7); Glomerular Filtration Rate 41; Glucose 237 mg/dL (70-105)
[2019-11-29 07:21] LABS: Blood Urea Nitrogen 28 mg/dl (8-23)
[2019-11-29] MEDS: ISOSORBIDE MONONITRATE 30 MG TAB.XL.24H PO SCH (08:15)
[2019-11-29] MEDS: glipiZIDE 5 MG TABLET PO SCH ×2 (08:15→17:25)
[2019-11-29] MEDS: ATORVASTATIN 40 MG TABLET PO SCH (08:15)
[2019-11-29] MEDS: DOCUSATE SODIUM 100 MG CAPSULE PO SCH ×2 (08:15→22:15)
[2019-11-29] MEDS: METOPROLOL TARTRATE 25 MG TABLET PO SCH ×2 (08:15→22:15)
[2019-11-29] MEDS: OMEPRAZOLE 20 MG CAPSULE PO SCH (08:15)
[2019-11-29] MEDS: ASPIRIN 325 MG ENTERIC COATED TABLET PO SCH (08:16)
[2019-11-29] MEDS: HYDROCHLOROTHIAZIDE 25 MG TABLET PO SCH (08:16)
[2019-11-29] MEDS: BACLOFEN 10 MG TABLET PO SCH ×3 (08:16→22:14)
[2019-11-29] MEDS: 0.9 % SODIUM CHLORIDE 1,000 ML IV SCH (08:16)
[2019-11-29] MEDS: HEPARIN 5,000 UNIT/ML VIAL SQ SCH ×2 (08:17→22:19)
[2019-11-29] MEDS: INSULIN LISPRO 1 UNIT/0.01 ML UNIT SQ SCH ×4 (08:17→22:20)
[2019-11-29] MEDS: LISINOPRIL 20 MG TABLET PO SCH (08:20)
[2019-11-29] MEDS ORDERED: INSULIN GLARGINE, HUMAN 1 UNIT/0.01 ML SQ SCH ×2 (09:00)
[2019-11-29] MEDS ORDERED: fentaNYL 12 MCG PATCH TOPICAL SCH (10:00)
--- NOTE | 2019-11-29 10:20 | Internal Med Progress Note ---
Medical - PN: Subj Patient information: Note initiated : 11/29/19 at 10:17 am Service Date, if different from initiated Date: [] Patient: Sherif Lawson a 89 y/o M admitted on 11/27/19 for back pain. Chief Complaint: [] Interval history: Mr. Lawson is a 89 year old M with a history of high blood pressure relation, CVA, diabetes type 2, CAD, and history of her pulmonary emboli who was brought to back pain. As per patient and , patient had a mechanical fall on Sunday (3 days ago). Denies loss of consciousness. After that, he developed back pain. He visited ER, he was diagnosed with acute T12 inferior endplate fracture. He was treated with the pain management. At home, he was treated by hydrocodone. His pain has been worsening since yesterday. The pain has become so severe so that he is not able to move. He admits that he does not have much pain when he stays in bed without movement. Today he visited the ER again. Orthopedist Dr. Ambriz was consulted who suggested medical management with a TLSO brace. If he were to fail bracing then a consult to the pain clinic would be warranted for localized injection therapy. When I saw this patient in the ER, other than symptoms mentioned above, she denied headache, dizziness, chest pain, shortness of breath, abdominal pain, nausea, vomiting, urinary or oral bowel movement incontinence or dysuria. 11/27 Pt feels much better, less pain. When I saw him, he was sitting on bed to eat his lunch. BP better controlled BG is uncontrolled. He is on lantus 10units daily, will start him on lantus 8 units daily Discussed with orth Dr. Ambriz, continue medical treatment and TLSO brace ordered 11/28 When I saw pt, he was sitting on bed for breakfast. Pt answered no pain. Brace was ordered. Instructed PT to try brace. Positive for back pain all other systems were reviewed and are negative. - Constitutional Vitals: Vital Signs Temp Pulse Resp BP Pulse Ox 97.8 F 85 24 H 162/79 97 11/29/19 07:25 11/29/19 03:57 11/29/19 07:25 11/29/19 07:25 11/29/19 07:25 Period Temp Pulse Resp BP Sys/Vides Pulse Ox Last 24 Hr 96.9 F-98.4 F 83-93 16-24 105-172/60-91 94-97 Intake and Output 11/28/19 11/29/19 11/29/19 21:59 05:59 13:59 Intake Total 912 973 1007 Output Total 400 400 Balance -280 -300 1000 Weight 76.204 kg Intake & Output: Intake & Output 11/28/19 11/29/19 11/29/19 21:59 05:59 13:59 Intake Total 720 603 0940 Output Total 400 400 Balance -280 -300 1000 Weight 76.204 kg Intake: IV 1000 Sodium Chloride 0.9% 1,000 ml @ 1000 50 mls/hr IV .Q20H DOUGLAS Rx#: [id number] Oral 120 100 Output: Urine Catheter Amount 400 400 Other: Meal Dinner Percent of Meal Consumed 10 Feeding Ability Total Assistance Urine Appearance Uretheral (Multani) Clear Urine Color Light Pamella Uretheral (Multani) Bright Yellow Urine Odor Uretheral (Multani) Normal - Additional findings Additional findings: General -mild acute distress due to back pain Eyes - PERRLA, EOM intact ENT no rhinorrhea, no noticeable or palpable swelling, no redness or rash around throat or on face Neck supple, no JVD, no thyromegaly Respiratory: Lungs - diminshed BS, no wheezing and crackles. Cardiovascular - RRR no m/r/g, GI - Normal bowel sounds, no distended, soft. Extremeties - No edema, cyanosis or clubbing Back: severe tenderness over T12. Hemo/lymphatic/immune no lymphadenopathy Neurological Alert and oriented x 3, no focal neurological deficits. Psychiatry flat affect Medical - PN: Obj Da - Labs CBC & Chem 7: 11/29/19 05:21 11/29/19 05:21 Labs: Abnormal Lab Results 11/29/19 11/29/19 11/28/19 05:21 05:21 05:14 RBC 4.33 L MCV 100.5 H MCH 34.2 H Lymph % (Auto) 13.2 L Lymph # (Auto) 1.03 L [place] # (Auto) 0.94 H BUN 28 H Creatinine 1.5 H 1.3 H Glucose 237 H 277 H Hemoglobin A1c 8.0 H NT-Pro-B Natriuret Pep Albumin 3.1 L Globulin 3.9 H Albumin/Globulin Ratio 0.8 L 0.9 L 11/28/19 11/27/19 11/27/19 05:14 14:44 14:22 RBC 4.37 L 4.59 L MCV MCH 34.3 H 34.4 H Lymph % (Auto) 13.3 L 10.9 L Lymph # (Auto) 1.08 L 0.93 L [place] # (Auto) BUN Creatinine 1.4 H Glucose 261 H Hemoglobin A1c NT-Pro-B Natriuret Pep 556.2 H Albumin Globulin 4.0 H Albumin/Globulin Ratio 0.9 L Meds: Medications Aspirin (Ecotrin) 325 mg PO QDAY [facility] Last Admin: 11/29/19 08:16 Dose: Not Given Documented by: Atorvastatin Calcium (Lipitor) 40 mg PO DAILY [facility] Last Admin: 11/29/19 08:15 Dose: Not Given Documented by: Baclofen (Lioresal) 5 mg PO TID [facility] Last Admin: 11/29/19 08:16 Dose: Not Given Documented by: Calcium Polycarbophil (Fibercon) 1 tab PO Q48H [facility] Last Admin: 11/28/19 09:18 Dose: 1 tab Documented by: Dextrose (Dextrose 50%) 0 ml IV UD PRN PRN Reason: Hypoglycemia Diagnostic Test (Pha) (Accu-Chek) 1 each FS ACHS [facility] Last Admin: 11/29/19 08:17 Dose: 1 each Documented by: Docusate Sodium (Colace) 100 mg PO BID [facility] Last Admin: 11/29/19 08:15 Dose: Not Given Documented by: Glipizide (Glucotrol) 10 mg PO BIDAC [facility] Last Admin: 11/29/19 08:15 Dose: Not Given Documented by: Glucose (Insta-Glucose) 15 gm PO PRN PRN PRN Reason: Hypoglycemia Heparin Sodium (Porcine) (Heparin) 5,000 unit SQ Q12 [facility] Last Admin: 11/29/19 08:17 Dose: 5,000 unit Documented by: Hydralazine HCl (Apresoline) 10 mg IV Q4HP PRN PRN Reason: Hypertension Last Admin: 11/29/19 04:05 Dose: 10 mg Documented by: Hydrochlorothiazide (Oretic) 25 mg PO DAILY [facility] Last Admin: 11/29/19 08:16 Dose: Not Given Documented by: Hydromorphone HCl (Dilaudid) 0.5 mg IV Q2HP PRN; Protocol PRN Reason: Per Pain Protocol Last Admin: 11/27/19 19:19 Dose: 0.5 mg Documented by: Sodium Chloride (Sodium Chloride 0.9%) 1,000 mls @ 50 mls/hr IV .Q20H [facility] Last Admin: 11/29/19 08:16 Dose: 50 mls/hr Documented by: Insulin Glargine (Lantus) 8 unit SQ DAILY [facility] Last Admin: 11/29/19 08:26 Dose: Not Given Documented by: Insulin Human Lispro (Humalog) 0 unit SQ ACHS [facility]; Protocol Last Admin: 11/29/19 08:17 Dose: 3 units Documented by: Isosorbide Mononitrate (Imdur) 30 mg PO DAILY [facility] Last Admin: 11/29/19 08:15 Dose: Not Given Documented by: Lisinopril (Zestril) 40 mg PO DAILY [facility] Last Admin: 11/29/19 08:20 Dose: Not Given Documented by: Metoprolol Tartrate (Lopressor) 25 mg PO BID [facility] Last Admin: 11/29/19 08:15 Dose: Not Given Documented by: Morphine Sulfate (Morphine) 2 mg IV Q4HP PRN; Protocol PRN Reason: Per Pain Protocol Last Admin: 11/28/19 03:59 Dose: 2 mg Documented by: Omeprazole (Prilosec) 20 mg PO ACB [facility] Last Admin: 11/29/19 08:15 Dose: Not Given Documented by: Ondansetron HCl (Zofran) 4 mg IV Q6HP PRN PRN Reason: Nausea And Vomiting Senna (Senokot) 2 tab PO HS [facility] Last Admin: 11/28/19 23:08 Dose: Not Given Documented by: Sodium Chloride (Saline Flush) 10 ml IV Q8 [facility] Last Admin: 11/29/19 05:50 Dose: Not Given Documented by: Medical - PN: A/P - Time Spent With Patient Total time spent is greater than 50% in coordination of care (as documented) at patient's floor/unit and/or counseling patient: - Narrative A/P Narrative: Assessment: 1. Acute T12 inferior endplate fracture 2. Hypertensive urgency 3. Chronic atrial fibrillation 4. Hx of CVA x2 5. Diabetes type 2 6. CAD, history of [place] 7. Hypertension 8. History of pulmonary emboli, 9. History of prostate CA and colon cancer 10. Hx of melanoma Plan: 1. Imaging showed Acute T12 inferior endplate fracture. There is no retropulsion or spinal canal stenosis. No evidence for pathologic fracture. Multilevel degenerative disc disease and facet arthropathy. No disc herniation. No spinal canal stenoses. Conus medullaris and cauda equina are normal. No epidural abnormality. As per orthopedics Dr. Ambriz, medical treatment with a TLSO brace. If the patient were to fail bracing then a consult to the pain clinic would be warranted for localized injection therapy. TLSO brace was ordered Instructed PT to try brace. pain management with IV morphine and the Dilaudid Pulmonary toilet 2. Continue home medications for blood pressure HTCZ 25 mg daily, Imdur 30 mg daily, lisinopril 40 mg daily, metoprolol 25 mg twice daily Hydralazine as needed 3. For atrial fibrillation, heart rate controlled. Patient was on Eliquis which was discontinued in September by his doctor. 4. Continue aspirin and added Lipitor 40 mg daily 5. Patient has a history of PE. He was treated by filter and Eliquis. The filter was removed and the Eliquis was discontinued by his doctor. 6. for History of prostate cancer, colon cancer and melanoma, follow with PCP and oncologist 7. BG is uncontrolled. Home medication include Lantus 10 units daily. I would like to start him on 8 units daily insulin sliding scale 8. DVT prophylaxis: Heparin 9. CODE STATUS: DNR and DNI Medical - PN: Qual - VTE Deep Vein Thrombosis/Pulmonary Embolism Present on Admission: No
[2019-11-29] MEDS ORDERED: HYDROmorphone* 2 MG/ML VIAL IV ONE (11:15)
--- NOTE | 2019-11-29 12:18 | Cat Scan Report ---
INDICATION: confusion COMPARISON: None. TECHNIQUE: Axial noncontrast-enhanced images through the brain. Sagittally and coronally reformatted images. FINDINGS: Cerebral hemispheres:Negative. No acute intra-axial abnormality. No intra-axial hematoma. No localized mass effect. Brain volume is within normal limits for age. No hydrocephalus. Chronic 5 mm right lacunar infarction. No other focal abnormality. There is white matter abnormality consistent with small vessel ischemic change in this 89-year-old patient Brainstem and cerebellum:No intra-axial abnormality Extra-axial:No acute hemorrhage. No subdural or epidural hematoma. No subarachnoid hemorrhage. Basilar cisterns are normal Calvarial:No calvarial fracture. No lytic lesion Soft tissue density within left mastoid sinuses consistent with mastoiditis. No destructive lesions. Paranasal sinuses are otherwise negative Soft tissue:Orbits and visualized facial soft tissues are grossly normal. IMPRESSION: 1. White matter abnormality consistent with small vessel ischemic change. Nonacute right thalamic lacunar infarction 2. No acute intracranial hemorrhage. No acute abnormality 3. No significant interval change since 07/25/2019 The exam was performed using radiation dose optimization techniques including, but not limited to, automated exposure control, adjustment of the mA and/or kV according to patient size and use of iterative reconstruction technique. Interpreted and Authenticated by: Matt Galo 11/29/19
[2019-11-29] MEDS: SENNOSIDES 1 TABLET PO SCH (22:15)
[2019-11-30] MEDS: 0.9 % SODIUM CHLORIDE 10 ML SYRINGE IV SCH ×4 (00:18→23:18)
[2019-11-30] MEDS: 0.9 % SODIUM CHLORIDE 1,000 ML IV SCH (04:01)
[2019-11-30] MEDS: hydrALAZINE 20 MG/ML VIAL IV PRN (05:08)
[2019-11-30 06:26] LABS: Basophils # (Auto) 0.04 K/mcL (0.00-0.30); Basophils % (Auto) 0.5 % (0.0-2.0); Eosinophils # (Auto) 0.07 K/mcL (0.00-0.70); Eosinophils % (Auto) 0.8 % (0.0-7.0); Granulocytes % (Auto) 70.4 % (38.0-78.0); Hematocrit 47.6 % (40.1-51.0); Lymphocytes % (Auto) 15.3 % (15.5-49.0); Mean Cell Volume 101.3 fL (80.0-100.0); Mean Corpuscular HGB Conc 33.6 g/dL (31.0-36.0); Mean Platelet Volume 9.7 fL (7.4-10.4); Platelet Count 177 K/mcL (140-440); Red Cell Distribution Width 13.9 % (11.5-14.5); WBC 8.5 K/mcL (4.50-11.00)
[2019-11-30 06:54] LABS: ALT/SGPT 22 U/l (0-40); AST/SGOT 17 U/l (0-37); Albumin 3.5 gm/dL (3.2-5.2); Albumin/Globulin Ratio 0.9 (1.0-2.3); Alkaline Phosphatase 68 U/L (39-117); Bilirubin,Total 0.6 mg/dL (0.0-1.0); Blood Urea Nitrogen 23 mg/dl (8-23); Calcium 10.4 mg/dl (8.6-10.4); Carbon Dioxide 23 mmol/L (22-30); Chloride 111 mmol/L (96-108); Glomerular Filtration Rate 45; Glucose 241 mg/dL (70-105)
[2019-11-30] MEDS ORDERED: MAGNESIUM HYDROXIDE 30 ML ORAL.SUSP PO PRN (07:09)
[2019-11-30] MEDS ORDERED: BISACODYL 10 MG SUPP.RECT PR PRN (07:09)
[2019-11-30] MEDS ORDERED: FLEETS ADULT ENEMA PR PRN (07:09)
[2019-11-30] MEDS: OMEPRAZOLE 20 MG CAPSULE PO SCH (09:58)
[2019-11-30] MEDS: glipiZIDE 5 MG TABLET PO SCH ×2 (09:58→17:22)
[2019-11-30] MEDS: DOCUSATE SODIUM 100 MG CAPSULE PO SCH ×2 (09:58→20:40)
[2019-11-30] MEDS: INSULIN LISPRO 1 UNIT/0.01 ML UNIT SQ SCH ×5 (09:58→22:57)
[2019-11-30] MEDS: LISINOPRIL 20 MG TABLET PO SCH (09:59)
[2019-11-30] MEDS: ATORVASTATIN 40 MG TABLET PO SCH (09:59)
[2019-11-30] MEDS: ISOSORBIDE MONONITRATE 30 MG TAB.XL.24H PO SCH (09:59)
[2019-11-30] MEDS: HEPARIN 5,000 UNIT/ML VIAL SQ SCH ×2 (09:59→20:40)
[2019-11-30] MEDS: CALCIUM POLYCARBOPHIL 1 TABLET PO SCH (09:59)
[2019-11-30] MEDS: HYDROCHLOROTHIAZIDE 25 MG TABLET PO SCH (09:59)
[2019-11-30] MEDS: BACLOFEN 10 MG TABLET PO SCH ×3 (09:59→20:40)
[2019-11-30] MEDS: ASPIRIN 325 MG ENTERIC COATED TABLET PO SCH (09:59)
[2019-11-30] MEDS: METOPROLOL TARTRATE 25 MG TABLET PO SCH ×2 (09:59→20:24)
[2019-11-30] MEDS: INSULIN GLARGINE, HUMAN 1 UNIT/0.01 ML SQ SCH (10:04)
--- NOTE | 2019-11-30 11:31 | Internal Med Progress Note ---
Medical - PN: Subj Patient information: Note initiated : 11/30/19 at 11:25 am Service Date, if different from initiated Date: [] Patient: Sherif Lawson a 89 y/o M admitted on 11/29/19 for back pain. Chief Complaint: [] Interval history: Mr. Lawson is a 89 year old M with a history of high blood pressure relation, CVA, diabetes type 2, CAD, and history of her pulmonary emboli who was brought to back pain. As per patient and , patient had a mechanical fall on Sunday (3 days ago). Denies loss of consciousness. After that, he developed back pain. He visited ER, he was diagnosed with acute T12 inferior endplate fracture. He was treated with the pain management. At home, he was treated by hydrocodone. His pain has been worsening since yesterday. The pain has become so severe so that he is not able to move. He admits that he does not have much pain when he stays in bed without movement. Today he visited the ER again. Orthopedist Dr. Ambriz was consulted who suggested medical management with a TLSO brace. If he were to fail bracing then a consult to the pain clinic would be warranted for localized injection therapy. When I saw this patient in the ER, other than symptoms mentioned above, she denied headache, dizziness, chest pain, shortness of breath, abdominal pain, nausea, vomiting, urinary or oral bowel movement incontinence or dysuria. 11/27 Pt feels much better, less pain. When I saw him, he was sitting on bed to eat his lunch. BP better controlled BG is uncontrolled. He is on lantus 10units daily, will start him on lantus 8 units daily Discussed with orth Dr. Ambriz, continue medical treatment and TLSO brace ordered 11/28 When I saw pt, he was sitting on bed for breakfast. Pt answered no pain. Brace was ordered. Instructed PT to try brace. 11/29 He is still confused during most of the time. Today is in his room. is feeding him juice. He probably has dysphagia. Discussed with pt and about PEG tube with presence of RN. Pt refused PEG tube. They are willing to take the responsibility if we continue to feed him by month. Creatinine 1.4. Na 149. We can help him to drink more water since they understood the risk for aspiration. Positive for back pain all other systems were reviewed and are negative. - Constitutional Vitals: Vital Signs Temp Pulse Resp BP Pulse Ox 98.2 F 88 14 178/85 91 11/30/19 06:17 11/30/19 06:17 11/30/19 06:17 11/30/19 06:17 11/30/19 06:17 Period Temp Pulse Resp BP Sys/Vides Pulse Ox Last 24 Hr 97.8 F-98.9 F 70-91 14-20 144-184/75-100 91-96 Intake and Output 11/29/19 11/30/19 11/30/19 21:59 05:59 13:59 Intake Total 987 Output Total 1100 Balance -113 Weight 76.657 kg Intake & Output: Intake & Output 11/29/19 11/30/19 11/30/19 21:59 05:59 13:59 Intake Total 987 Output Total 1100 Balance -113 Weight 76.657 kg Intake: IV 987 Sodium Chloride 0.9% 1,000 ml @ 987 50 mls/hr IV .Q20H [facility] Rx#: [id number] Output: Urine Catheter Amount 1100 Other: Meal Dinner Percent of Meal Consumed 0% Feeding Ability Total Assistance Urine Appearance Small Blood Clots Uretheral (Multani) Small Blood Clots Urine Color Light Pamella Uretheral (Multani) Light Pamella - Additional findings Additional findings: General -NAD, confusion at most of the time. Eyes - PERRLA, EOM intact ENT no rhinorrhea, no noticeable or palpable swelling, no redness or rash around throat or on face Neck supple, no JVD, no thyromegaly Respiratory: Lungs - diminshed BS, no wheezing and crackles. Cardiovascular - RRR no m/r/g, GI - Normal bowel sounds, no distended, soft. Extremeties - No edema, cyanosis or clubbing Back: severe tenderness over T12. Hemo/lymphatic/immune no lymphadenopathy Neurological Alert, confusion, does not seem to have focal neurological deficits. Psychiatry flat affect Medical - PN: Obj Da - Labs CBC & Chem 7: 11/30/19 04:42 11/30/19 04:42 Labs: Abnormal Lab Results 11/30/19 11/30/19 11/29/19 04:42 04:42 05:21 RBC MCV 101.3 H MCH Lymph % (Auto) 15.3 L [place] % (Auto) 13.0 H Lymph # (Auto) 1.30 L [place] # (Auto) 1.10 H Sodium 149 H Chloride 111 H BUN 28 H Creatinine 1.4 H 1.5 H Glucose 241 H 237 H Hemoglobin A1c NT-Pro-B Natriuret Pep Albumin 3.1 L Globulin 4.0 H 3.9 H Albumin/Globulin Ratio 0.9 L 0.8 L 11/29/19 11/28/19 11/28/19 05:21 05:14 05:14 RBC 4.33 L 4.37 L MCV 100.5 H MCH 34.2 H 34.3 H Lymph % (Auto) 13.2 L 13.3 L [place] % (Auto) Lymph # (Auto) 1.03 L 1.08 L [place] # (Auto) 0.94 H Sodium Chloride BUN Creatinine 1.3 H Glucose 277 H Hemoglobin A1c 8.0 H NT-Pro-B Natriuret Pep Albumin Globulin Albumin/Globulin Ratio 0.9 L 11/27/19 11/27/19 14:44 14:22 RBC 4.59 L MCV MCH 34.4 H Lymph % (Auto) 10.9 L [place] % (Auto) Lymph # (Auto) 0.93 L [place] # (Auto) Sodium Chloride BUN Creatinine 1.4 H Glucose 261 H Hemoglobin A1c NT-Pro-B Natriuret Pep 556.2 H Albumin Globulin 4.0 H Albumin/Globulin Ratio 0.9 L Meds: Medications Aspirin (Ecotrin) 325 mg PO QDAY [facility] Last Admin: 11/30/19 09:59 Dose: Not Given Documented by: Atorvastatin Calcium (Lipitor) 40 mg PO DAILY [facility] Last Admin: 11/30/19 09:59 Dose: Not Given Documented by: Baclofen (Lioresal) 5 mg PO TID [facility] Last Admin: 11/30/19 09:59 Dose: Not Given Documented by: Bisacodyl (Dulcolax) 10 mg [place] Q2-3DAYS PRN PRN Reason: Constipation Last Admin: 11/30/19 09:54 Dose: 10 mg Documented by: Calcium Polycarbophil (Fibercon) 1 tab PO Q48H [facility] Last Admin: 11/30/19 09:59 Dose: Not Given Documented by: Dextrose (Dextrose 50%) 0 ml IV UD PRN PRN Reason: Hypoglycemia Diagnostic Test (Pha) (Accu-Chek) 1 each FS ACHS [facility] Last Admin: 11/30/19 09:54 Dose: Not Given Documented by: Docusate Sodium (Colace) 100 mg PO BID [facility] Last Admin: 11/30/19 09:58 Dose: Not Given Documented by: Fentanyl (Duragesic) 12 mcg TOPICAL Q72H [facility] Last Admin: 11/29/19 11:31 Dose: 12 mcg Documented by: Glipizide (Glucotrol) 10 mg PO BIDAC [facility] Last Admin: 11/30/19 09:58 Dose: Not Given Documented by: Glucose (Insta-Glucose) 15 gm PO PRN PRN PRN Reason: Hypoglycemia Heparin Sodium (Porcine) (Heparin) 5,000 unit SQ Q12 [facility] Last Admin: 11/30/19 09:59 Dose: Not Given Documented by: Hydralazine HCl (Apresoline) 10 mg IV Q4HP PRN PRN Reason: Hypertension Last Admin: 11/30/19 05:08 Dose: 10 mg Documented by: Hydrochlorothiazide (Oretic) 25 mg PO DAILY [facility] Last Admin: 11/30/19 09:59 Dose: Not Given Documented by: Sodium Chloride (Sodium Chloride 0.9%) 1,000 mls @ 50 mls/hr IV .Q20H [facility] Last Admin: 11/30/19 04:01 Dose: 50 mls/hr Documented by: Insulin Glargine (Lantus) 10 unit SQ DAILY [facility] Last Admin: 11/30/19 10:04 Dose: 10 unit Documented by: Insulin Human Lispro (Humalog) 0 unit SQ [facility]; Protocol Last Admin: 11/30/19 09:58 Dose: Not Given Documented by: Isosorbide Mononitrate (Imdur) 30 mg PO DAILY [facility] Last Admin: 11/30/19 09:59 Dose: Not Given Documented by: Lisinopril (Zestril) 40 mg PO DAILY [facility] Last Admin: 11/30/19 09:59 Dose: Not Given Documented by: Magnesium Hydroxide (Milk Of Magnesia) 30 ml PO DAILYP PRN PRN Reason: Constipation Metoprolol Tartrate (Lopressor) 25 mg PO BID [facility] Last Admin: 11/30/19 09:59 Dose: Not Given Documented by: Omeprazole (Prilosec) 20 mg PO ACB [facility] Last Admin: 11/30/19 09:58 Dose: Not Given Documented by: Ondansetron HCl (Zofran) 4 mg IV Q6HP PRN PRN Reason: Nausea And Vomiting Senna (Senokot) 2 tab PO HS [facility] Last Admin: 11/29/19 22:15 Dose: Not Given Documented by: Sodium Biphosphate/Sodium Phosphate (Fleets Adult) 1 dose [place] Q3-4DAYS PRN PRN Reason: Constipation Sodium Chloride (Saline Flush) 10 ml IV Q8 [facility] Last Admin: 11/30/19 06:01 Dose: Not Given Documented by: Medical - PN: A/P - Time Spent With Patient Total time spent is greater than 50% in coordination of care (as documented) at patient's floor/unit and/or counseling patient: - Narrative A/P Narrative: Assessment: 1. Acute T12 inferior endplate fracture 2. Hypertensive urgency 3. Chronic atrial fibrillation 4. Hx of CVA x2 5. Diabetes type 2 6. CAD, history of [place] 7. Hypertension 8. History of pulmonary emboli, 9. History of prostate CA and colon cancer 10. Hx of melanoma 11. Dysphagia Plan: 1. Imaging showed Acute T12 inferior endplate fracture. There is no retropulsion or spinal canal stenosis. No evidence for pathologic fracture. Multilevel degenerative disc disease and facet arthropathy. No disc herniation. No spinal canal stenoses. Conus medullaris and cauda equina are normal. No epidural abnormality. As per orthopedics Dr. Ambriz, medical treatment with a TLSO brace. If the patient were to fail bracing then a consult to the pain clinic would be warranted for localized injection therapy. TLSO brace was ordered Instructed PT to try brace. pain management with IV morphine and the Dilaudid Pulmonary toilet 2. Continue home medications for blood pressure HTCZ 25 mg daily, Imdur 30 mg daily, lisinopril 40 mg daily, metoprolol 25 mg twice daily Hydralazine as needed 3. For atrial fibrillation, heart rate controlled. Patient was on Eliquis which was discontinued in September by his doctor. 4. Continue aspirin and added Lipitor 40 mg daily 5. Patient has a history of PE. He was treated by filter and Eliquis. The filter was removed and the Eliquis was discontinued by his doctor. 6. for History of prostate cancer, colon cancer and melanoma, follow with PCP and oncologist 7. BG is uncontrolled. Home medication include Lantus 10 units daily. I would like to start him on 8 units daily insulin sliding scale 8. He probably has dysphagia. Discussed with pt and about PEG tube with presence of RN. Pt refused PEG tube. They are willing to take the responsibility if we continue to feed him by month. ST eval 9. DVT prophylaxis: Heparin 10. CODE STATUS: DNR and DNI Medical - PN: Qual - VTE Deep Vein Thrombosis/Pulmonary Embolism Present on Admission: No
[2019-11-30] MEDS: SENNOSIDES 1 TABLET PO SCH (20:40)
[2019-11-30] MEDS: ACETAMINOPHEN 1,000 MG/100 ML BOTTLE IV PRN (20:47)
[2019-12-01] MEDS: INSULIN LISPRO 1 UNIT/0.01 ML UNIT SQ SCH ×3 (01:09→11:47)
[2019-12-01] MEDS: ACETAMINOPHEN 1,000 MG/100 ML BOTTLE IV PRN (03:58)
[2019-12-01] MEDS: 0.9 % SODIUM CHLORIDE 1,000 ML IV SCH (04:00)
[2019-12-01] MEDS: 0.9 % SODIUM CHLORIDE 10 ML SYRINGE IV SCH (04:42)
[2019-12-01 06:20] LABS: Basophils # (Auto) 0.05 K/mcL (0.00-0.30); Basophils % (Auto) 0.6 % (0.0-2.0); Eosinophils # (Auto) 0.25 K/mcL (0.00-0.70); Granulocytes % (Auto) 63.1 % (38.0-78.0); Hematocrit 44.3 % (40.1-51.0); Hemoglobin 15.1 g/dL (13.7-17.5); Lymphocytes # (Auto) 1.53 K/mcL (1.50-4.80); Lymphocytes % (Auto) 18.3 % (15.5-49.0); Mean Cell Volume 101.1 fL (80.0-100.0); Mean Corpuscular HGB Conc 34.1 g/dL (31.0-36.0); Mean Platelet Volume 9.9 fL (7.4-10.4); Monocytes # (Auto) 1.25 K/mcL (0.10-0.90); Platelet Count 159 K/mcL (140-440); RBC 4.38 M/mcL (4.63-6.08); Red Cell Distribution Width 14.1 % (11.5-14.5); WBC 8.4 K/mcL (4.50-11.00)
[2019-12-01 06:48] LABS: ALT/SGPT 20 U/l (0-40); AST/SGOT 17 U/l (0-37); Albumin 3.1 gm/dL (3.2-5.2); Albumin/Globulin Ratio 0.8 (1.0-2.3); Alkaline Phosphatase 64 U/L (39-117); Bilirubin,Total 0.7 mg/dL (0.0-1.0); Blood Urea Nitrogen 31 mg/dl (8-23); Carbon Dioxide 22 mmol/L (22-30); Chloride 113 mmol/L (96-108); Globulin 3.7 gm/dL (2.2-3.7); Glomerular Filtration Rate 38; Glucose 179 mg/dL (70-105)
[2019-12-01] MEDS: glipiZIDE 5 MG TABLET PO SCH (08:15)
[2019-12-01] MEDS: OMEPRAZOLE 20 MG CAPSULE PO SCH (08:16)
[2019-12-01] MEDS: HEPARIN 5,000 UNIT/ML VIAL SQ SCH (08:35)
[2019-12-01] MEDS: DOCUSATE SODIUM 100 MG CAPSULE PO SCH ×2 (08:37→08:53)
[2019-12-01] MEDS: ASPIRIN 325 MG ENTERIC COATED TABLET PO SCH (08:44)
[2019-12-01] MEDS: ATORVASTATIN 40 MG TABLET PO SCH (08:44)
[2019-12-01] MEDS: HYDROCHLOROTHIAZIDE 25 MG TABLET PO SCH (08:45)
[2019-12-01] MEDS: BACLOFEN 10 MG TABLET PO SCH (08:47)
[2019-12-01] MEDS: METOPROLOL TARTRATE 25 MG TABLET PO SCH (08:47)
[2019-12-01] MEDS: ISOSORBIDE MONONITRATE 30 MG TAB.XL.24H PO SCH (08:47)
[2019-12-01] MEDS: LISINOPRIL 20 MG TABLET PO SCH (08:48)
[2019-12-01] MEDS: INSULIN GLARGINE, HUMAN 1 UNIT/0.01 ML SQ SCH (09:19)
--- NOTE | 2019-12-01 10:02 | Discharge Summary ---
Medical - DS: Prov Patient information: Note initiated : 12/01/19 at 10:00 am Service Date, if different from initiated Date: [] Patient: Sherif Lawson 89 y/o M admitted on 11/29/19 for back pain. Chief Complaint: [] Date of admission: 11/29/19 16:41 Discharge date: 12/01/19 Primary care physician: Yovani Laguerre Consults: 11/27/19 Consult to Physician [CONS] Stat Comment: Consulting Provider: Laurent Ambriz Reason For Exam: Physician to Consult Consult to Physician [CONS] Stat Comment: Consulting Provider: Gerald Alcantar Reason For Exam: Physician to Consult Medical - DS: Meds - Discharge Medications Prescriptions: fentaNYL [Duragesic] 12 mcg TOPICAL Q72H #7 patch Prescription Printed HYDROcodone/ACETAMINOPHEN [Hydrocodone-Acetamin 10-325/15] 7.5 ml PO Q8HP PRN 5 Days #100 solution PRN Reason: pain Prescription Printed Baclofen [Lioresal] 5 mg PO TID #20 tab Prescription Printed Active and Home Medications: Home Medications Calcium Polycarbophil [Fiber Laxative] 625 mg PO DAILY 09/25/18 [History Confirmed 11/27/19 Last Taken 11/26/19 08:00] Hydrochlorothiazide [Oretic] 25 mg PO DAILY 09/25/18 [History Confirmed 11/27/19 Last Taken 11/26/19 08:00] Isosorbide Mononitrate [Imdur] 30 mg PO DAILY 09/25/18 [History Confirmed 11/27/19 Last Taken 11/26/19 08:00] Lisinopril [Zestril] 40 mg PO DAILY 09/25/18 [History Confirmed 11/27/19 Last Taken 11/26/19 08:00] Omeprazole [Prilosec] 20 mg PO DAILY 09/25/18 [History Confirmed 11/27/19 Last Taken 11/26/19 07:00] glipiZIDE [Glucotrol] 10 mg PO BID 09/25/18 [History Confirmed 11/27/19 Last Taken 11/26/19 17:00] metFORMIN HCL [Metformin HCl] 1,275 mg PO QAM 09/25/18 [History Confirmed 11/27/19 Last Taken 11/26/19 08:00] Magnesium Amino Acid Chelate [Magnesium] 400 mg PO BID 07/22/19 [History Confirmed 11/27/19 Last Taken 11/26/19 20:00] Metoprolol Tartrate [Lopressor] 25 mg PO BID #1 tab 07/28/19 [Rx Confirmed 11/27/19 Last Taken 11/26/19 20:00] aspirin 325 mg tablet,delayed release 325 mg PO QDAY 11/24/19 [History Confirmed 11/27/19 Last Taken 11/26/19 08:00] Insulin Aspart [Novolog] 0 unit SQ PRN PRN 11/27/19 [History Confirmed 11/27/19 Last Taken Unknown] Insulin Glargine,Hum.rec.anlog [Basaglar Kwikpen U-100] 10 unit SQ DAILY 11/27/19 [History Confirmed 11/27/19 Last Taken 11/26/19 08:00] metFORMIN [Glucophage] 850 mg PO HS 11/27/19 [History Confirmed 11/27/19 Last Taken 11/26/19 20:00] Baclofen [Lioresal] 5 mg PO TID #20 tab 12/01/19 [Rx Last Taken Unknown] Bisacodyl [Dulcolax] 10 mg SD Q2-3DAYS PRN supp.rect 12/01/19 [Rx Last Taken Unknown] HYDROcodone/ACETAMINOPHEN [Hydrocodone-Acetamin 10-325/15] 7.5 ml PO Q8HP PRN 5 Days #100 solution 12/01/19 [Rx Last Taken Unknown] fentaNYL [Duragesic] 12 mcg TOPICAL Q72H #7 patch 12/01/19 [Rx Last Taken Unknown] Medical - DS: Hosp Hospital Course: Discharge diagnosis 1. Acute T12 inferior endplate fracture-continue pain management. Continue T SLO brace per orthopedics. 2 pain management-adequate control at this time. Continue as needed fentanyl/opioids/referral to pain clinic if remains poorly controlled over the next few days. 3. Chronic atrial fibrillation-rate controlled 4. Hx of CVA x2 5. Diabetes type 2 6. CAD, history of IN 7. Wpjhfcftdwok-szwk-weyaokpgws on home meds 8. History of pulmonary emboli, 9. History of prostate CA and colon cancer 10. Hx of melanoma Brief hospital course Mr. Lawson is a 89 year old M with a history of high blood pressure relation, CVA, diabetes type 2, CAD, and history of her pulmonary emboli who was brought to back pain. As per patient and , patient had a mechanical fall on Sunday (3 days ago). Denies loss of consciousness. After that, he developed back pain. He visited ER, he was diagnosed with acute T12 inferior endplate fracture. He was treated with the pain management. At home, he was treated by hydrocodone. His pain has been worsening since yesterday. The pain has become so severe so that he is not able to move. He admits that he does not have much pain when he stays in bed without movement. Today he visited the ER again. Orthopedist Dr. Ambriz was consulted who suggested medical management with a TLSO brace. If he were to fail bracing then a consult to the pain clinic would be warranted for localized injection therapy. When I saw this patient in the ER, other than symptoms mentioned above, she denied headache, dizziness, chest pain, shortness of breath, abdominal pain, nausea, vomiting, urinary or oral bowel movement incontinence or dysuria. 11/27 Pt feels much better, less pain. When I saw him, he was sitting on bed to eat his lunch. BP better controlled BG is uncontrolled. He is on lantus 10units daily, will start him on lantus 8 units daily Discussed with orth Dr. Ambriz, continue medical treatment and TLSO brace ordered 11/28 When I saw pt, he was sitting on bed for breakfast. Pt answered no pain. Brace was ordered. Instructed PT to try brace. 11/29 He is still confused during most of the time. Today is in his room. is feeding him juice. He probably has dysphagia. Discussed with pt and about PEG tube with talib siddiqui of RN. Pt refused PEG tube. They are willing to take the responsibility if we continue to feed him by month. Creatinine 1.4. Na 149. We can help him to drink more water since they understood the risk for aspiration. 11/30-patient doing well. No overnight events. No concerns per staff. No fever chills nausea vomiting. Pain good control. Discharging to [facility] for continued post hospitalization rehab/mobilization/therapies. Discharge diagnosis: . - Time Spent with Patient Total time spent providing and/or coordinating discharge services: Greater than 30 minutes Medical - DS: Exam - Constitutional Vitals: Vital Signs Temp Pulse Pulse Resp BP BP Pulse Ox 12/01/19 08:00 97.7 F 82 18 163/79 98 12/01/19 03:51 98.0 F 77 22 122/78 96 11/30/19 23:37 98 F 92 H 24 H 132/98 96 11/30/19 19:34 98.6 F 88 28 H 153/87 93 11/30/19 15:44 101.5 F H 20 117/63 92 11/30/19 12:00 98.0 F 98 H 18 146/91 94 Intake and Output 11/30/19 12/01/19 12/01/19 21:59 05:59 13:59 Intake Total 700 1760 240 Output Total 450 500 Balance 250 1260 240 Intake: IV 100 1000 Sodium Chloride 0.9% 1,000 ml @ 1000 50 mls/hr IV .Q20H DOUGLAS Rx#: [id number] Oral 600 760 240 Output: Urine Catheter Amount 450 500 Other: Meal Dinner Percent of Meal Consumed 75% Feeding Ability Total Assistance Urine Color Light Pamella Light Pamella Urine Odor Strong Weight 170 lb 8 oz Medical - DS: Data Labs on day of discharge: Labs from last 24 hours 12/01/19 12/01/19 05:09 05:09 WBC 8.4 RBC 4.38 L Hgb 15.1 Hct 44.3 MCV 101.1 H MCH 34.5 H MCHC 34.1 RDW 14.1 Plt Count 159 MPV 9.9 Gran % 63.1 Lymph % (Auto) 18.3 Wise % (Auto) 15.0 H Eos % (Auto) 3.0 Baso % (Auto) 0.6 Gran # 5.28 Lymph # (Auto) 1.53 Wise # (Auto) 1.25 H Eos # (Auto) 0.25 Baso # (Auto) 0.05 Sodium 147 H Potassium 3.7 Chloride 113 H Carbon Dioxide 22 Anion Gap 12.0 BUN 31 H Creatinine 1.6 H GFR Calculation 38 Glucose 179 H Calcium 10.0 Total Bilirubin 0.7 AST 17 ALT 20 Alkaline Phosphatase 64 Total Protein 6.8 Albumin 3.1 L Globulin 3.7 Albumin/Globulin Ratio 0.8 L Medical - DS: A/P - Patient/Caregiver Discharge Instructions Activity: as per physical therapy, increase activity as tolerated Diet: Consistent Carbohydrate Additional Instructions: Follow-up PCP in 5 days F/u orthopedics as outpatient and continue recommendations per orthopedics including T SLO brace Pain management only as needed opioids. Outpatient pain clinic referral if inadequate control over the next few days I recommend SNF physician to check CBC BMP UA as a posthospital follow-up in 1 week. Continue aggressive bowel regimen to prevent constipation Continue fall precautions Continue aggressive PT OT evaluation and treatment at SNF. ST eval and treatment if indicated High protein calorie supplements All meals on chair sitting upright at 90 degrees to prevent aspiration Return to ER if worsening fever chills shortness of breath, diarrhea, bleeding Review risk and side effect profile of medications including antibiotics. Side effect may include mild to severe reaction including rash, diarrhea, cdiff and even which can be prevented by close follow-up with PCP and monitoring for side effects Continue diet and activity as advised Discussed importance of medication adherence Please review medication list with patient prior to discharge Please schedule follow-up with PCP/Providers prior to discharge and provide printouts Prescriptions: fentaNYL [Duragesic] 12 mcg TOPICAL Q72H #7 patch Prescription Printed HYDROcodone/ACETAMINOPHEN [Hydrocodone-Acetamin 10-325/15] 7.5 ml PO Q8HP PRN 5 Days #100 solution PRN Reason: pain Prescription Printed Baclofen [Lioresal] 5 mg PO TID #20 tab Prescription Printed - Follow up Plan Follow up with: Yovani Laguerre MD [Primary Care Provider] - Disposition: Xfer [facility] Prognosis: Fair Rehab Potential: Fair I certify that the patient requires SNF services: Yes Overall status at discharge: patient is progressing back to baseline Medical - DS: Qual - VTE Deep Vein Thrombosis/Pulmonary Embolism Present on Admission: No
== END 2019-12-01 12:45 | DRG 552 ==
LOC: ED 09:38 → MEDSUR 09:38
PROVIDERS: ADMIT Internal Medicine; ATTEND Internal Medicine

== ENCOUNTER 2019-12-03 14:30 | Inpatient (IN) ==
[2019-12-03 14:53] LABS: POC Blood Urea Nitrogen 30 mg/dl (8-23); POC CO2 24 mmol/L (22-30); POC Calcium, Ionized 1.39 mmol/L (1.16-1.32); POC Chloride 118 mmol/L (96-108); POC Creatinine 1.7 mg/dl (0.7-1.2); POC Glucose, Random 278 mg/dL (70-105); POC Potassium 3.8 mmol/L (3.3-5.1); POC Sodium 153 mmol/L (133-145)
--- NOTE | 2019-12-03 14:55 | Cat Scan Report ---
CLINICAL INFORMATION: Stroke COMPARISON: Head CT 11/24/2019. TECHNIQUE: 2.5 mm helical slices were obtained in the skull base to vertex. Following reconstruction, axial reformatted images were reviewed at bone and parenchymal windows. The exam was performed using radiation dose optimization techniques including, but not limited to, automated exposure control, adjustment of the mA and/or kV according to patient size and use of iterative reconstruction technique. FINDINGS: The ventricles, sulci, fissures, and cisterns are symmetrically enlarged compatible moderate age-related atrophy - no subdural hemorrhage or other extra-axial fluid collection appreciated. Moderate patchy chronic ischemic changes, in the deep cerebral white matter, are expected for age and are unchanged. There are two remote lacunar infarcts in the right thalamus 7 mm and 8 mm respectively. There is no intercerebral hemorrhage, mass effect or edema. Bone windows show no osseous abnormality. IMPRESSION: Moderate atrophy with moderate chronic ischemic changes in the deep cerebral white matter with remote lacunar infarcts in the right thalamus as previously seen. No acute findings Subtotal opacification left mastoid air cells compatible with mastoiditis unchanged Interpreted and Authenticated by: Matt Kimbrough 12/03/19
[2019-12-03 15:03] LABS: POC INR 1.1 (0.9-1.2); POC Pro Time 12.9 sec (11.9-14.5)
--- NOTE | 2019-12-03 15:20 | Emergency Department Note ---
Neuro HPI - General Chief Complaint: Stroke Symptoms Stated Complaint: stroke symptoms, right facial droop Time Seen by Provider: 12/03/19 15:10 Source: patient, EMS Mode of arrival: EMS Limitations: language barrier, altered mental status - History of Present Illness HPI Narrative: 89-year-old male comes back today for new right-sided facial droop. He was seen yesterday for possible CVA and was found to have a UTI and sent back to [facility]. He did have a low-grade temperature elevation to 100.0 yesterday. He was treated with Cipro. I reviewed that note from Shaina CARRERA Today he comes back for worsening symptoms plus this new right-sided facial droop. He has had 2 prior CVAs. He cannot cooperate for my exam and will stick out his tongue and does groan in response to his name. Temperature here today is 99.0 He is DNR per nursing after discussion with family-his was present for interview and exam NIH was 35 but I do not know what his baseline is Additional history it is noted that over the last 9 to 10 days he has been in our ER 3 times-once initially for vertebral fracture after a fall. Prior to that he was living at home with his . Now he is at [facility]. Because of the COVID virus I wore full PPE and he is in precautions. Additional history from his and nursing staff note that the patient was not tested for COVID virus here-he may have been tested at the nursing facility however. Apparently he does sleep with his mouth open and so he is quite dry. His says he urinates frequently. As far she knows he has not walked in 10 days-they did try to stand him up when he was in the hospital the first time but he could not secondary to pain. Even prior to this episode he could only walk with a walker. Nursing staff notes that he will not take any oral medicines - Related Data Home Medications: Home Medications Medication Instructions Recorded Confirmed Calcium Polycarbophil [Fiber 625 mg PO DAILY 09/25/18 12/03/19 Laxative] Hydrochlorothiazide [Oretic] 25 mg PO DAILY 09/25/18 12/03/19 Isosorbide Mononitrate [Imdur] 30 mg PO DAILY 09/25/18 12/03/19 Lisinopril [Zestril] 40 mg PO DAILY 09/25/18 12/03/19 Omeprazole [Prilosec] 20 mg PO DAILY 09/25/18 12/03/19 glipiZIDE [Glucotrol] 10 mg PO BID 09/25/18 12/03/19 metFORMIN HCL [Metformin HCl] 1,275 mg PO QAM 09/25/18 12/03/19 Magnesium Amino Acid Chelate 400 mg PO BID 07/22/19 12/03/19 [Magnesium] aspirin 325 mg tablet,delayed 325 mg PO QDAY 11/24/19 12/03/19 release Insulin Aspart [Novolog] 0 unit SQ PRN PRN 11/27/19 12/03/19 Insulin Glargine,Hum.rec.anlog 10 unit SQ DAILY 11/27/19 12/03/19 [Basaglar Kwikpen U-100] metFORMIN [Glucophage] 850 mg PO HS 11/27/19 12/03/19 Docusate Sodium [Colace] 100 mg PO DAILY 12/03/19 12/03/19 Previous Rx's Medication Instructions Recorded Metoprolol Tartrate [Lopressor] 25 mg PO BID #1 tab 07/28/19 Baclofen [Lioresal] 5 mg PO TID #20 tab 12/01/19 Bisacodyl [Dulcolax] 10 mg [place] Q2-3DAYS PRN supp.rect 12/01/19 HYDROcodone/APAP 5/325MG [[place] 1 - 2 tab PO Q6HP PRN #10 tab 12/01/19 5-325Mg] Insulin Aspart [Novolog] 1 unit SQ ACHS #1 ml 12/01/19 fentaNYL [Duragesic] 12 mcg TOPICAL Q72H #7 patch 12/01/19 Ciprofloxacin [Cipro] 500 mg PO BID #20 tab 12/02/19 Allergies/Adverse Reactions: Allergies Allergy/AdvReac Type Severity Reaction Status Date / Time Penicillins [PENICILLINS] Allergy Intermediate Hives Verified 12/03/19 14:35 Sulfa (Sulfonamide Allergy Intermediate Hives Verified 12/03/19 14:35 Antibiotics) [SULFA (SULFONAMIDE ANTIBIOTICS)] Review of Systems All systems ED: reviewed and negative except as stated. Past Medical History - Past Medical History PMFSH Narrative: Medical History (Last Updated 11/26/19 @ 10:11 by Shaka Bradley DO) Chronic anticoagulation (Resolved) Chronic atrial fibrillation (Chronic) CVA (cerebral vascular accident) (Chronic) Diabetes mellitus, type 2 (Chronic) Coronary artery disease (Chronic) History of myocardial infarction (Chronic) Hyperlipidemia (Chronic) Hypertension, essential (Chronic) Pulmonary emboli (Resolved) History of colon cancer (Chronic) History of prostate cancer (Chronic) History of melanoma (Resolved) History of basal cell cancer (Resolved) History of kidney stones (Chronic) Cataract (Chronic) Epistaxis (Resolved) Fall (Resolved) Fracture of greater trochanter of left femur (Resolved) Hypoxia (Resolved) SOB (shortness of breath) (Resolved) Past Surgical History (Last Updated 11/26/19 @ 10:06 by Shaka Bradley DO) History of appendectomy (Acute) History of coronary artery stent placement (Acute) Source: old records reviewed Medical history: Reports: atrial fibrillation, CVA, dementia, kidney stones, pulmonary embolus, other (Colon cancer, right arm melanoma, prostate cancer, cataracts) Psychiatric history: Denies: anxiety, depression Surgical history ED: Reports: other (Appendectomy, lithotripsy, prostate cancer implant, cataracts, multiple heart caths, [place] filter) - Social History smoking status: Never smoker Alcohol use: Reports: None (Former; none since 2000) Drug use: Reports: none. Denies: marijuana Physical Exam Patient is lying in bed and will respond to his name groaning. He will blink his eyes and stick out his tongue but he does have a right-sided facial droop. Pupils are equal and slightly reactive. Extraocular movements do appear intact. No nasal discharge or congestion. Oropharynx with dry buccal mucosa. Neck is supple without lymphadenopathy or thyromegaly. Heart is regular rate and rhy thm. Clear to auscultation bilaterally without wheezes rales rhonchi or respiratory distress. Abdomen is soft nontender nondistended. He is wearing an adult diaper. He will not move his arms or legs in response to stimuli or on command. I am not able to assess whether or not he can move them at all or if he has sensation secondary to patient cooperation Limitations: language barrier, altered mental status Course Vital Signs Temperature 100.0 F H 12/03/19 14:31 Pulse Rate 112 H 12/03/19 14:31 Respiratory Rate 26 H 12/03/19 14:31 Blood Pressure 165/100 12/03/19 14:31 Pulse Oximetry (%) 96 12/03/19 14:31 Temperature 99.1 F H 12/03/19 15:31 Pulse Rate 102 H 12/03/19 17:08 Respiratory Rate 23 H 12/03/19 17:08 Blood Pressure 174/92 12/03/19 17:01 Pulse Oximetry (%) 96 12/03/19 17:08 Neuro Symptoms/Deficit - Lab Data Lab results reviewed: Yes I reviewed the patient's lab results. Result diagrams: 12/03/19 14:40 12/03/19 14:40 Lab Results 12/03/19 12/03/19 12/03/19 Range/Units 14:40 14:40 14:40 WBC 15.5 H (4.50-11.00) K/mcL RBC 4.58 L (4.63-6.08) M/mcL Hgb 15.8 (13.7-17.5) g/dL Hct 47.2 (40.1-51.0) % POC Hct 45.0 (41.0-55.0) % MCV 103.1 H (80.0-100.0) fL MCH 34.5 H (26.0-34.0) pg MCHC 33.5 (31.0-36.0) g/dL RDW 13.7 (11.5-14.5) % Plt Count 140 (140-440) K/mcL MPV 10.4 (7.4-10.4) fL Gran % 85.6 H (38.0-78.0) % Lymph % (Auto) 6.8 L (15.5-49.0) % [place] % (Auto) 7.0 (1.0-12.0) % Eos % (Auto) 0.3 (0.0-7.0) % Baso % (Auto) 0.3 (0.0-2.0) % Gran # 13.29 H (1.80-8.00) K/mcL Lymph # (Auto) 1.06 L (1.50-4.80) K/mcL [place] # (Auto) 1.08 H (0.10-0.90) K/mcL Eos # (Auto) 0.04 (0.00-0.70) K/mcL Baso # (Auto) 0.04 (0.00-0.30) K/mcL POC PT 12.9 (11.9-14.5) sec POC INR 1.1 (0.9-1.2) APTT 27 (20-37) sec VBG Lactic Acid (0.5-2.0) mmol/L POC Sodium 153 H (133-145) mmol/L Sodium 150 H (133-145) mmol/L POC Potassium 3.8 (3.3-5.1) mmol/L Potassium 3.8 (3.3-5.1) mmol/L POC Chloride 118 H (96-108) mmol/L Chloride 113 H (96-108) mmol/L Carbon Dioxide 22 (22-30) mmol/L POC Total CO2 24 (22-30) mmol/L Anion Gap 15.0 (8-16) POC BUN 30 H (8-23) mg/dl BUN 28 H (8-23) mg/dl Creatinine 1.6 H (0.7-1.2) mg/dl POC Creatinine 1.7 H (0.7-1.2) mg/dl GFR Calculation 38 Glucose 273 H (70-105) mg/dL POC Glucose 278 H (70-105) mg/dL Calcium 10.1 (8.6-10.4) mg/dl POC WB Ioniz Calcium 1.39 H (1.16-1.32) mmol/L Total Bilirubin 0.7 (0.0-1.0) mg/dL AST 17 (0-37) U/l ALT 20 (0-40) U/l Alkaline Phosphatase 76 (39-117) U/L Troponin T (0-0.03) ng/ml Total Protein 7.3 (5.9-8.4) gm/dL Albumin 3.5 (3.2-5.2) gm/dL Globulin 3.8 H (2.2-3.7) gm/dL Albumin/Globulin Ratio 0.9 L (1.0-2.3) Prolactin (4.0-15.2) ng/ml 12/03/19 12/03/19 12/03/19 Range/Units 14:40 14:40 14:40 WBC (4.50-11.00) K/mcL RBC (4.63-6.08) M/mcL Hgb (13.7-17.5) g/dL Hct (40.1-51.0) % POC Hct (41.0-55.0) % MCV (80.0-100.0) fL MCH (26.0-34.0) pg MCHC (31.0-36.0) g/dL RDW (11.5-14.5) % Plt Count (140-440) K/mcL MPV (7.4-10.4) fL Gran % (38.0-78.0) % Lymph % (Auto) (15.5-49.0) % [place] % (Auto) (1.0-12.0) % Eos % (Auto) (0.0-7.0) % Baso % (Auto) (0.0-2.0) % Gran # (1.80-8.00) K/mcL Lymph # (Auto) (1.50-4.80) K/mcL [place] # (Auto) (0.10-0.90) K/mcL Eos # (Auto) (0.00-0.70) K/mcL Baso # (Auto) (0.00-0.30) K/mcL POC PT (11.9-14.5) sec POC INR (0.9-1.2) APTT (20-37) sec VBG Lactic Acid 1.8 (0.5-2.0) mmol/L POC Sodium (133-145) mmol/L Sodium (133-145) mmol/L POC Potassium (3.3-5.1) mmol/L Potassium (3.3-5.1) mmol/L POC Chloride (96-108) mmol/L Chloride (96-108) mmol/L Carbon Dioxide (22-30) mmol/L POC Total CO2 (22-30) mmol/L Anion Gap (8-16) POC BUN (8-23) mg/dl BUN (8-23) mg/dl Creatinine (0.7-1.2) mg/dl POC Creatinine (0.7-1.2) mg/dl GFR Calculation Glucose (70-105) mg/dL POC Glucose (70-105) mg/dL Calcium (8.6-10.4) mg/dl POC WB Ioniz Calcium (1.16-1.32) mmol/L Total Bilirubin (0.0-1.0) mg/dL AST (0-37) U/l ALT (0-40) U/l Alkaline Phosphatase (39-117) U/L Troponin T 0.01 (0-0.03) ng/ml Total Protein (5.9-8.4) gm/dL Albumin (3.2-5.2) gm/dL Globulin (2.2-3.7) gm/dL Albumin/Globulin Ratio (1.0-2.3) Prolactin 10.9 (4.0-15.2) ng/ml - Radiology Data Radiology results reviewed: Yes I reviewed the patient's radiology results. Initial CT scan without contrast of the head shows no acute stroke. MRI is ordered as CTA is contraindicated per Dr. Kimbrough. His creatinine is 1.7 MRI shows new right-sided lacunar infarct approximately 2 to 3 mm in size it is nonhemorrhagic. This may or may not account for his right-sided facial - EKG Data EKG attestation: Yes I reviewed and interpreted this EKG., Yes There are no EKG findings of acute coronary syndrome EKG results narrative: EKG shows old inferior infarct and atrial fibrillation Disposition Pt seen by LABORER C[employer]TING TOOL/PA only: No Clinical Impression: Hypernatremia, Hypercalcemia, Suspected COVID-19 virus infection, Acute renal disease Altered mental status Qualifiers: Altered mental status type: unspecified Qualified Code(s): R41.82 - Altered mental status, unspecified UTI (urinary tract infection) Qualifiers: Urinary tract infection type: acute cystitis Hematuria presence: with hematuria Qualified Code(s): N30.01 - Acute cystitis with hematuria CVA (cerebral vascular accident) Qualifiers: CVA mechanism: thrombosis Precerebral and cerebral artery: unspecified cerebral artery Qualified Code(s): I63.30 - Cerebral infarction due to thrombosis of unspecified cerebral artery Summary: 89 -year-old patient comes in from nursing facility with continued altered mental status and low-grade temperature elevation. Suspect UTI partially treated. Additional metabolic factors include hypernatremia and hypercalcemia. He does have a new right facial droop CT scan of the head is unrevealing so MRI is ordered of the head after discussion with Dr. Kimbrough, radiologist I discussed the case as well with Dr. Merrill, tele-stroke who did not feel the patient was a candidate for TPA-he is DNR, with multiple comorbidities living in a care home. Further he was last seen normal 6:00 yesterday morning and outside the window. Neither Dr. Kimbrough nor Dr. Merrill felt that we should get CTA on him because his creatinine was 1.7 and he is not a good candidate for thrombectomy. We could get ultrasound of the carotid arteries if it is indicated as the case progresses. EKG shows continued atrial fibrillation; he is not anticoagulated Started normal saline for hypernatremia. He perked up a little bit and was talking a little bit more but I am unable to understand anything he says. His is at the bedside and is able to interpret a little. It is noted that his creatinine is now up to 1.6 which is an acute elevation from his baseline She notes they have discussed his wishes and he is definitely DNI DNR however they do want treatment with IV fluids and antibiotics. So we will consult hospitalist to admit him for stroke work-up-he will need to be on telemetry and because of the possibility of COVID virus with elevated temperature we will do that lab. Noted that chest x-ray only shows atelectasis. Discussed patient's status with our hospitalist, Dr. Flores. Because the COVID virus testing and he is got a leukocytosis of 15.5 and a low-grade temperature elevation-we will need to bring him in for further evaluation and treatment. We will continue to treat the above other diagnosis as well Disposition: Xfer As Inpt ([facility]) Condition: Fair Referrals: Yovani Laguerre MD [Primary Care Provider] -
[2019-12-03] MEDS ORDERED: 0.9 % SODIUM CHLORIDE 1,000 ML IV ONE (15:28)
[2019-12-03 15:44] LABS: Basophils # (Auto) 0.04 K/mcL (0.00-0.30); Basophils % (Auto) 0.3 % (0.0-2.0); Eosinophils # (Auto) 0.04 K/mcL (0.00-0.70); Eosinophils % (Auto) 0.3 % (0.0-7.0); Granulocytes % (Auto) 85.6 % (38.0-78.0); Hematocrit 47.2 % (40.1-51.0); Hemoglobin 15.8 g/dL (13.7-17.5); Lymphocytes # (Auto) 1.06 K/mcL (1.50-4.80); Lymphocytes % (Auto) 6.8 % (15.5-49.0); Mean Cell Volume 103.1 fL (80.0-100.0); Mean Corpuscular HGB Conc 33.5 g/dL (31.0-36.0); Mean Platelet Volume 10.4 fL (7.4-10.4); Monocytes # (Auto) 1.08 K/mcL (0.10-0.90); Platelet Count 140 K/mcL (140-440); RBC 4.58 M/mcL (4.63-6.08); Red Cell Distribution Width 13.7 % (11.5-14.5); WBC 15.5 K/mcL (4.50-11.00)
[2019-12-03 16:05] LABS: ALT/SGPT 20 U/l (0-40); AST/SGOT 17 U/l (0-37); Albumin 3.5 gm/dL (3.2-5.2); Albumin/Globulin Ratio 0.9 (1.0-2.3); Alkaline Phosphatase 76 U/L (39-117); Bilirubin,Total 0.7 mg/dL (0.0-1.0); Blood Urea Nitrogen 28 mg/dl (8-23); Calcium 10.1 mg/dl (8.6-10.4); Carbon Dioxide 22 mmol/L (22-30); Globulin 3.8 gm/dL (2.2-3.7); Glomerular Filtration Rate 38; Glucose 273 mg/dL (70-105)
[2019-12-03 16:07] LABS: Chloride 113 mmol/L (96-108)
--- NOTE | 2019-12-03 16:07 | Magnetic Resonance Report ---
CLINICAL INFORMATION: possible CVA, right facial droop COMPARISON: Head CT 12/03/2019 FINDINGS: The ventricles, sulci, fissures and cisterns are symmetrically are compatible with moderate age-related atrophy - no extra-axial fluid collection or mass appreciated. There is moderate chronic ischemic changes in the deep cerebral white matter. 2 mm focus of recurrent restricted diffusion in the deep right frontal white matter should represent tiny acute hemorrhagic lacunar infarct. No no other acute infarcts are hemorrhage. Remote lacunar infarct in the right thalamus proximally 5 mm seen as before IMPRESSION: 3 mm acute nonhemorrhagic lacunar infarct in the right frontal white matter Moderate atrophy chronic ischemic changes in the cerebral white matter remote lacunar infarct in the right thalamus Interpreted and Authenticated by: Matt Kimbrough 12/03/19
--- NOTE | 2019-12-03 16:14 | XRay Report ---
CLINICAL INFORMATION: altered mental status COMPARISON: 12/02/2019 FINDINGS: Heart size, mediastinum and pulmonary vessels are normal for technique. Minor bibasilar airspace disease is more likely atelectasis developing infiltrate. No effusion IMPRESSION: Minor bibasilar airspace disease most likely atelectasis. Interpreted and Authenticated by: Matt Kimbrough 12/03/19
[2019-12-03] MEDS ORDERED: CIPROFLOXACIN 400 MG/200 ML BAG IV ONE (16:59)
[2019-12-03] MEDS ORDERED: HYDROmorphone 0.5 MG/0.5 ML SYRINGE IV ONE (17:21)
--- NOTE | 2019-12-03 17:22 | Internal Med History&Physical ---
Medical - H&P: HPI Patient information: Note initiated : 12/03/19 at 5:22 pm Service Date, if different from initiated Date: [] Patient: Sherif Lawson a 89 y/o M admitted on for stroke symptoms, right facial droop. Chief Complaint: [] Chief complaint: Fever weakness and mental status change History of present illness: Mr. Lawson is a 89 year old M with recent hospitalization for T12 endplate vertebral fracture/pain management and was discharged on 11/30. 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 He was discharged to senior living home however over the last 48 hours he has been to the ER twice with increasing fever weakness and mental status change. During the previous visit on 428 he was diagnosed with UTI and was discharged on a ntibiotics. Today he presents with altered status/right-sided facial droop for possible CVA. Initial NIH score was high and patient underwent MRI this reveals a new lacunar CVA. ER physician discussed the case with stroke neurologist at [place] Dr. Merrill. Patient is beyond the window for TPA and hence hospital service was consulted for further management. Patient was found to have a white count of 15,000 with pyuria and fever along with sodium of 153. COVID test was ordered. present in room. Hospitalist service was consulted At the time of my evaluation patient is nearly obtunded. He is not able to answer any question. Shadia is at bedside. She was able to endorse history as above. Given multiple recent hospitalization and extensive comorbidities I discussed the goals of care and expressed that she would want him to be comfortable if he does not improved in the next 24 to 48 hours despite treatment. Review of systems 10 point review system was attempted but could not performed Medical - H&P: PM Medical history: CAD status post stent placement Recent angiogram moderate diffuse CAD without significant high-grade stenosis Normal LV function Recent PE placed IVC filter On anticoagulation History atrial fibrillation Prostate cancer seed placement History of colon cancer Not on any active chemotherapy History of diabetes Essential hypertension CKD Surgical history: Stent placement Prosthetic surgery Pertinent family history: Mother-history of heart disease early age 49 Social history: Lives with his who is also in her 80s and difficulty managing at home Has been discharged to care facility a few times but has made him leave AGAINST MEDICAL ADVICE from nursing facilities Both of them having hearing difficulty 2 adult son lives in [facility] Medical - H&P: Meds Home Medications Medication Instructions Recorded Confirmed Type Calcium Polycarbophil [Fiber 625 mg PO DAILY 09/25/18 12/03/19 History Laxative] Hydrochlorothiazide [Oretic] 25 mg PO DAILY 09/25/18 12/03/19 History Isosorbide Mononitrate [Imdur] 30 mg PO DAILY 09/25/18 12/03/19 History Lisinopril [Zestril] 40 mg PO DAILY 09/25/18 12/03/19 History Omeprazole [Prilosec] 20 mg PO DAILY 09/25/18 12/03/19 History glipiZIDE [Glucotrol] 10 mg PO BID 09/25/18 12/03/19 History metFORMIN HCL [Metformin HCl] 1,275 mg PO QAM 09/25/18 12/03/19 History Magnesium Amino Acid Chelate 400 mg PO BID 07/22/19 12/03/19 History [Magnesium] Metoprolol Tartrate [Lopressor] 25 mg PO BID #1 tab 07/28/19 12/03/19 Rx aspirin 325 mg tablet,delayed 325 mg PO QDAY 11/24/19 12/03/19 History release Insulin Aspart [Novolog] 0 unit SQ PRN PRN 11/27/19 12/03/19 History Insulin Glargine,Hum.rec.anlog 10 unit SQ DAILY 11/27/19 12/03/19 History [Basaglar Kwikpen U-100] metFORMIN [Glucophage] 850 mg PO HS 11/27/19 12/03/19 History Baclofen [Lioresal] 5 mg PO TID #20 tab 12/01/19 12/03/19 Rx Bisacodyl [Dulcolax] 10 mg NM Q2-3DAYS PRN supp.rect 12/01/19 12/03/19 Rx HYDROcodone/APAP 5/325MG [[place] 1 - 2 tab PO Q6HP PRN #10 tab 12/01/19 12/03/19 Rx 5-325Mg] Insulin Aspart [Novolog] 1 unit SQ ACHS #1 ml 12/01/19 12/03/19 Rx fentaNYL [Duragesic] 12 mcg TOPICAL Q72H #7 patch 12/01/19 12/03/19 Rx Ciprofloxacin [Cipro] 500 mg PO BID #20 tab 12/02/19 12/03/19 Rx Docusate Sodium [Colace] 100 mg PO DAILY 12/03/19 12/03/19 History Allergies Allergy/AdvReac Type Severity Reaction Status Date / Time Penicillins [PENICILLINS] Allergy Intermediate Hives Verified 12/03/19 14:35 Sulfa (Sulfonamide Allergy Intermediate Hives Verified 12/03/19 14:35 Antibiotics) [SULFA (SULFONAMIDE ANTIBIOTICS)] Medical - H&P: Exam - Constitutional Vitals: Temp Pulse Resp BP Pulse Ox 99.1 F H 102 H 23 H 174/92 96 12/03/19 15:31 12/03/19 17:08 12/03/19 17:08 12/03/19 17:01 12/03/19 17:08 General appearance: disheveled, moderate distress Exam: Minimally responsive, right facial droop, profoundly weak, drooling noted Head normocephalic Oral cavity drooling No ear nose discharge Neck lymphadenopathy S1-S2 tachycardia occasional skipped beat, grade 1 systolic murmur Diminished breath sounds bases Abdomen soft nontender Lower extremity no cyanosis clubbing or joint swelling Skin no suspicious lesion Psych obtunded Neuro could not performed Medical - H&P: Reslt - Labs CBC & Chem 7: 12/03/19 14:40 12/03/19 14:40 Labs: Short CBC 12/03/19 Range/Units 14:40 WBC 15.5 H (4.50-11.00) K/mcL Hgb 15.8 (13.7-17.5) g/dL Hct 47.2 (40.1-51.0) % Plt Count 140 (140-440) K/mcL BMP 12/03/19 14:40 Sodium 150 H Potassium 3.8 Chloride 113 H Carbon Dioxide 22 BUN 28 H Creatinine 1.6 H Glucose 273 H Calcium 10.1 Cardiac Enzymes 12/03/19 Range/Units 14:40 Troponin T 0.01 (0-0.03) ng/ml Liver Function 12/03/19 Range/Units 14:40 Total Bilirubin 0.7 (0.0-1.0) mg/dL AST 17 (0-37) U/l ALT 20 (0-40) U/l Alkaline Phosphatase 76 (39-117) U/L Albumin 3.5 (3.2-5.2) gm/dL Medical - H&P: A/P (1) Sepsis Current visit: Yes Status: Acute * Sepsis with endorgan dysfunction. Continue management per guidelines * Complicated UTI-initiate antibiotic coverage * Hypernatremia at 153 secondary to failure to thrive and inability to oral fluids. Continue free water replacement * Acute onset CVA on MRI. Reviewed neuroimaging. Initiate neurochecks/telemetry monitoring aspirin/statin * mild oral dysphagia/aphasia secondary CVA. On modified diet. Continue aspiration precaution. * Recent T12 inferior endplate fracture on pain management. On T SLO brace per orthopedics. * HTN: home meds thiazide/ERIN inhibitor/beta-yudy and Imdur * History of CVA x2 * DM type II * History of PE status post DVT filter * CAD w/stent to LAD 2008: PCI 2019. On medical therapy * Chronic paroxysmal atrial fibrillation: Currently in sinus on Eliquis. recent echocardiogram preserved EF * CKD III: Creatinine 1.6 * Type 2 diabetes: A1c 6.4 * History of colon cancer, melanoma & prostate cancer status post seed implant * DNR plan Plan * ICU admit. Patient critically ill based on [place] 2 score 18, high risk mortality * Sepsis management guidelines * Freewater replacement * Await COVID-19 test * Neurochecks * Antibiotic coverage * Pain management * ST eval * Overall very poor prognosis. Discussed with possibility of palliation. Shadia agrees if patient does not improve in the next 24 to 40 hours she will consider palliation and end-of-life care given his overall poor quality of life. critical care time spent in excess of 35 minutes in addition to time spent on history and physical On management of acute CVA/hyponatremia/severe sepsis
[2019-12-03] MEDS ORDERED: HYDROmorphone* 2 MG/ML VIAL IV ONE (17:23)
[2019-12-03] MEDS ORDERED: MELATONIN 3 MG TABLET PO PRN (20:06)
[2019-12-03] MEDS ORDERED: POLYETHYLENE GLYCOL 3350 17 GM PACKET PO PRN (20:06)
[2019-12-03] MEDS ORDERED: guaiFENesin/CODEINE 10 ML UDC PO PRN (20:06)
[2019-12-03] MEDS ORDERED: BISACODYL 10 MG SUPP.RECT PR PRN (20:06)
[2019-12-03] MEDS ORDERED: ONDANSETRON 4 MG ODT TABLET SL PRN (20:06)
[2019-12-03] MEDS ORDERED: ONDANSETRON 4 MG/2 ML VIAL IV PRN (20:06)
[2019-12-03] MEDS ORDERED: ACETAMINOPHEN 325 MG TABLET PO PRN (20:06)
[2019-12-03] MEDS ORDERED: ACETAMINOPHEN 650 MG/65 ML BOTTLE IV PRN (20:39)
[2019-12-03] MEDS ORDERED: cefTRIAXone 2 GM VIAL ONE (20:47)
[2019-12-03] MEDS: DEXTROSE 5%-1/2NS 1,000 ML IV SCH (20:49)
[2019-12-03] MEDS: DOCUSATE SODIUM 100 MG CAPSULE PO SCH (20:50)
[2019-12-03] MEDS: cefTRIAXone 2 GM in DEXTROSE 5% IN WATER 50 ML IV SCH (20:50)
[2019-12-03] MEDS: 0.9 % SODIUM CHLORIDE 10 ML SYRINGE IV SCH (20:51)
[2019-12-03] MEDS: HEPARIN 5,000 UNIT/ML VIAL SQ SCH (20:55)
[2019-12-03] MEDS ORDERED: SENNOSIDES/DOCUSATE SODIUM 1 TAB TABLET PO SCH (21:00)
[2019-12-03 22:40] LABS: Appearance,Urine CLEAR; Bacteria,Urine 0 /hpf (0); Bilirubin,Urine NEG (NEG); Color,Urine YELLOW; Culture Indicated,Urine NO; Glucose,Urine (UA) 50 mg/dL (NEG); Ketones,Urine NEG (NEG); Leukocyte Esterase,Urine NEG /uL (NEG); Nitrate,Urine NEG (NEG); Protein,Urine 100 mg/dL (NEG); Specific Gravity,Urine 1.018 (1.000-1.035); Urine Blood 0.2 mg/dL (<0.03); Urine RBC 0 /hpf (0-1); Urine Squamous Epithelial Cell 0 /hpf (0-4); Urine WBC 1 /hpf (0-4); Urobilinogen,Urine NEG (NEG)
[2019-12-04] MEDS: 0.9 % SODIUM CHLORIDE 10 ML SYRINGE IV SCH ×3 (05:51→21:11)
[2019-12-04 06:12] LABS: Hematocrit 44.8 % (40.1-51.0); Hemoglobin 14.9 g/dL (13.7-17.5); Mean Cell Volume 104.2 fL (80.0-100.0); Mean Corpuscular HGB Conc 33.3 g/dL (31.0-36.0); Mean Platelet Volume 10.7 fL (7.4-10.4); Platelet Count 125 K/mcL (140-440); Red Cell Distribution Width 13.8 % (11.5-14.5); WBC 13.7 K/mcL (4.50-11.00)
[2019-12-04 06:34] LABS: Bilirubin,Direct < 0.2 mg/dL (0.0-0.3)
[2019-12-04 06:38] LABS: ALT/SGPT 18 U/l (0-40); AST/SGOT 24 U/l (0-37); Albumin 2.9 gm/dL (3.2-5.2); Albumin/Globulin Ratio 0.7 (1.0-2.3); Alkaline Phosphatase 76 U/L (39-117); Bilirubin,Total 0.5 mg/dL (0.0-1.0); Blood Urea Nitrogen 27 mg/dl (8-23); Calcium 9.4 mg/dl (8.6-10.4); Carbon Dioxide 21 mmol/L (22-30); Chloride 115 mmol/L (96-108); Globulin 3.9 gm/dL (2.2-3.7); Glomerular Filtration Rate 41; Glucose 348 mg/dL (70-105); Lactate Dehydrogenase 343 U/L (94-250); Phosphorous 2.8 mg/dL (2.7-4.5); Triglycerides 141 mg/dl (<150); Uric Acid 8.1 mg/dL (2.5-8.0)
[2019-12-04] MEDS ORDERED: OMEPRAZOLE 20 MG CAPSULE PO SCH (07:30)
[2019-12-04] MEDS ORDERED: BISACODYL 10 MG SUPP.RECT PR PRN (08:03)
[2019-12-04] MEDS ORDERED: HYDROcodone/APAP 5/325MG TABLET PO PRN ×2 (08:03→16:14)
[2019-12-04 08:07] LABS: Eosinophils % (Manual) 1 % (0-7); Lymphocytes % 8 % (15-49); Macrocytosis 2+ (NONE SEEN); Monocytes % (Manual) 7 % (1-12); Platelet Estimate DECREASED (NORMAL); RBC Morphology ABNORM (NORMAL); Segmented Neutrophils % 84 % (38-78)
[2019-12-04] MEDS ORDERED: hydrALAZINE 20 MG/ML VIAL IV PRN ×2 (08:27→13:43)
[2019-12-04] MEDS ORDERED: ASPIRIN 325 MG ENTERIC COATED TABLET PO SCH (09:00)
[2019-12-04] MEDS ORDERED: METOPROLOL TARTRATE 25 MG TABLET PO SCH (09:00)
[2019-12-04] MEDS ORDERED: ISOSORBIDE MONONITRATE 30 MG TAB.XL.24H PO SCH (09:00)
[2019-12-04] MEDS ORDERED: HYDROCHLOROTHIAZIDE 25 MG TABLET PO SCH (09:00)
[2019-12-04] MEDS ORDERED: MULTIVIT,THER IRON,CA,FA & MIN 1 TABLET PO SCH (09:00)
[2019-12-04] MEDS ORDERED: MAGNESIUM OXIDE 400 MG TABLET PO SCH (09:00)
[2019-12-04] MEDS ORDERED: INSULIN GLARGINE, HUMAN 1 UNIT/0.01 ML SQ SCH (09:00)
[2019-12-04] MEDS ORDERED: CALCIUM POLYCARBOPHIL 1 TABLET PO SCH (09:00)
[2019-12-04] MEDS ORDERED: LISINOPRIL 20 MG TABLET PO SCH (09:00)
[2019-12-04] MEDS ORDERED: DOCUSATE SODIUM 100 MG CAPSULE PO SCH (09:00)
--- NOTE | 2019-12-04 09:27 | Internal Med Progress Note ---
Medical - PN: Subj Patient information: Note initiated : 12/04/19 at 9:23 am Service Date, if different from initiated Date: [] Patient: Sherif Lawson a 89 y/o M admitted on 12/03/19 for stroke symptoms, right facial droop. Chief Complaint: [] Interval history: Mr. Lawson is a 89 year old M with recent hospitalization for T12 endplate vertebral fracture/pain management and was discharged on 11/30. 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 He was discharged to halfway home however over the last 48 hours he has been to the ER twice with increasing fever weakness and mental status change. During the previous visit on 428 he was diagnosed with UTI and was discharged on antibiotics. Today he presents with altered status/right-sided facial droop for possible CVA. Initial NIH score was high and patient underwent MRI this reveals a new lacunar CVA. ER physician discussed the case with stroke neurologist at [place] Dr. Merrill. Patient is beyond the window for TPA and hence hospital service was consulted for further management. Patient was found to have a white count of 15,000 with pyuria and fever along with sodium of 153. COVID test was ordered. present in room. Hospitalist service was consulted At the time of my evaluation patient is nearly obtunded. He is not able to answer any question. Shadia is at bedside. She was able to endorse history as above. Given multiple recent hospitalization and extensive comorbidi ties I discussed the goals of care and expressed that she would want him to be comfortable if he does not improved in the next 24 to 48 hours despite treatment. 12/03-patient ongoing post stroke care in ICU. Systolics around 170. Use as needed hydralazine to keep systolics around 140. Sodium improved 151. Persistent aspiration and dysphagia unable to take p.o. Family conference today for goals of care conference. Likely will transition to end-of-life palliation due to poor overall prognosis and chance of recovery with underlying comorbidities and quality of life. - Constitutional Vitals: Vital Signs Temp Pulse Resp BP Pulse Ox 99.1 F H 107 H 17 174/96 93 12/04/19 08:01 12/04/19 08:01 12/04/19 08:01 12/04/19 08:01 12/04/19 08:01 Period Temp Pulse Resp BP Sys/Vides Pulse Ox Last 24 Hr 98.7 F-100.0 F 28-113 13-27 136-200/67-111 91-98 Intake and Output 12/03/19 12/04/19 12/04/19 21:59 05:59 13:59 Intake Total 1200 65 Output Total 585 360 Balance 1200 -520 -360 Weight 163 lb 1.6 oz Intake & Output: Intake & Output 12/03/19 12/04/19 12/04/19 21:59 05:59 13:59 Intake Total 1200 65 Output Total 585 360 Balance 1200 -520 -360 Weight 163 lb 1.6 oz Intake: IV 1200 65 Sodium Chloride 0.9% 1,000 ml @ 1000 Wide Open IV BOLUS ONE Rx#: [id number] Output: Urine Catheter Amount 585 360 Other: Urine Appearance Clear Clear Uretheral ([place]) Clear Urine Color Pale Light [place] Urine Odor Normal Exam: Remains minimally responsive Opens eyes to verbal commands Nonlabored breathing Tachycardia on telemetry Facial droop Medical - PN: Obj Da - Labs CBC & Chem 7: 12/04/19 04:50 12/04/19 04:50 Labs: Abnormal Lab Results 12/04/19 12/04/19 12/03/19 04:50 04:50 21:55 WBC 13.7 H RBC 4.30 L MCV 104.2 H MCH 34.7 H Plt Count 125 L MPV 10.7 H Gran % Lymph % (Auto) Gran # Lymph # (Auto) Stevens # (Auto) Seg Neutrophils % 84 H Lymphocytes % 8 L Platelet Estimate Decreased A RBC Morphology Abnorm A Macrocytosis 2+ A POC Sodium Sodium 151 H POC Chloride Chloride 115 H Carbon Dioxide 21 L POC BUN BUN 27 H Creatinine 1.5 H POC Creatinine Glucose 348 H POC Glucose Uric Acid 8.1 H POC WB Ioniz Calcium Lactate Dehydrogenase 343 H Albumin 2.9 L Globulin 3.9 H Albumin/Globulin Ratio 0.7 L Urine Protein 100 A Urine Glucose (UA) 50 A Urine Occult Blood 0.2 A 12/03/19 12/03/19 14:40 14:40 WBC 15.5 H RBC 4.58 L MCV 103.1 H MCH 34.5 H Plt Count MPV Gran % 85.6 H Lymph % (Auto) 6.8 L Gran # 13.29 H Lymph # (Auto) 1.06 L Stevens # (Auto) 1.08 H Seg Neutrophils % Lymphocytes % Platelet Estimate RBC Morphology Macrocytosis POC Sodium 153 H Sodium 150 H POC Chloride 118 H Chloride 113 H Carbon Dioxide POC BUN 30 H BUN 28 H Creatinine 1.6 H POC Creatinine 1.7 H Glucose 273 H POC Glucose 278 H Uric Acid POC WB Ioniz Calcium 1.39 H Lactate Dehydrogenase Albumin Globulin 3.8 H Albumin/Globulin Ratio 0.9 L Urine Protein Urine Glucose (UA) Urine Occult Blood Meds: Medications Acetaminophen (Tylenol) 650 mg PO Q4-6HP PRN; Protocol PRN Reason: Per Pain Protocol/Fever > 101 Hydrocodone Bitart/Acetaminophen ([place] 5/325mg) 1 - 2 tab PO Q6HP PRN; Protocol PRN Reason: Pain Aspirin (Ecotrin) 325 mg PO QDAY [facility] Bisacodyl (Dulcolax) 10 mg MA Q2-3DAYS PRN PRN Reason: Constipation Calcium Polycarbophil (Fibercon) 1 tab PO Q48H [facility] Diagnostic Test (Pha) (Accu-Chek) 1 each FS ACHS [facility] Docusate Sodium (Colace) 100 mg PO BID [facility] Last Admin: 12/03/19 20:50 Dose: Not Given Documented by: Fentanyl (Duragesic) 12 mcg TOPICAL Q72H [facility] Guaifenesin/Codeine Phosphate (Robitussin Ac) 10 ml PO Q4HP PRN PRN Reason: Cough Heparin Sodium (Porcine) (Heparin) 5,000 unit SQ Q12 [facility] Last Admin: 12/03/19 20:55 Dose: 5,000 unit Documented by: Hydralazine HCl (Apresoline) 20 mg IV Q4-6HP PRN PRN Reason: Hypertension Hydrochlorothiazide (Oretic) 25 mg PO DAILY [facility] Ceftriaxone Sodium 2 gm/ (Dextrose) 50 mls @ 100 mls/hr IV Q24H [facility]; Protocol Last Admin: 12/03/19 20:50 Dose: Not Given Documented by: Dextrose/Sodium Chloride (Dextrose 5%-1/2ns Iv Solution) 1,000 mls @ 84 mls/hr IV .[id number] [facility] Stop: 12/06/19 07:37 Last Admin: 12/03/19 20:49 Dose: 84 mls/hr Documented by: Acetaminophen (Ofirmev) 650 mg in 65 mls @ 130 mls/hr IV Q6HP PRN; Protocol PRN Reason: PAIN/FEVER > 101 Last Infusion: 12/03/19 23:55 Dose: Infused Documented by: Insulin Glargine (Lantus) 10 unit SQ DAILY [facility] Insulin Human Lispro (Humalog) 0 unit SQ ACHS [facility]; Protocol Iron Carb/Multivit/Knappa/Folic Acid (Multivitamin W/Minerals) 1 tab PO DAILY [facility] Isosorbide Mononitrate (Imdur) 30 mg PO DAILY [facility] Lisinopril (Zestril) 40 mg PO DAILY [facility] Magnesium Oxide (Magnesium Oxide) 400 mg PO BID [facility] Melatonin (Melatonin 3mg Tablet) 3 mg PO HSP PRN PRN Reason: Insomnia Metoprolol Tartrate (Lopressor) 25 mg PO BID [facility] Omeprazole (Prilosec) 20 mg PO ACB [facility] Ondansetron HCl (Zofran Odt) 4 mg SL Q4-6HP PRN; Protocol PRN Reason: Nausea And Vomiting Ondansetron HCl (Zofran) 4 mg IV Q4-6HP PRN; Protocol PRN Reason: Nausea And Vomiting Polyethylene Glycol (Miralax) 17 gm PO DAILYP PRN PRN Reason: Constipation Senna/Docusate Sodium (Senna Plus Tablet) 1 tab PO HS [facility] Last Admin: 12/03/19 20:51 Dose: Not Given Documented by: Sodium Chloride (Saline Flush) 10 ml IV Q8 [facility] Last Admin: 12/04/19 05:51 Dose: 10 ml Documented by: Medical - PN: A/P - Time Spent With Patient Total time spent is greater than 50% in coordination of care (as documented) at patient's floor/unit and/or counseling patient: 25 - 35 minutes (1) Sepsis Status: Acute Assessment and plan: * Sepsis with endorgan dysfunction. Clinically improving. White count down to 13. * Acute encephalopathy secondary to CVA/sepsis * Acute ischemic CVA on MRI. Continue neurochecks/ICU care/blood pressure management. Unable to take aspirin statin due to high risk aspiration * Complicated UTI-continue antibiotic coverage * Aspiration pneumonia secondary to underlying dysphagia from recurrent stroke. * mild oral dysphagia/aphasia secondary CVA. On modified diet. Continue aspiration precaution. * Recent T12 inferior endplate fracture on pain management. On T SLO brace per orthopedics. * Hypernatremia improved now at 151. Continue free water replacement. * HTN: home meds thiazide/ERIN inhibitor/beta-yudy and Imdur * History of CVA x2 * DM type II * History of PE status post DVT filter * CAD w/stent to LAD 2009: PCI 2019. On medical therapy * Chronic paroxysmal atrial fibrillation: Currently in sinus on Eliquis. recent echocardiogram preserved EF * CKD III: Creatinine 1.6 * Type 2 diabetes: A1c 6.4 * History of colon cancer, melanoma & prostate cancer status post seed implant * DNR plan Plan * Continue permissive hypertension/use adding hydralazine to keep systolic between 1 40-1 60 * Antibiotic coverage * Aspiration precaution * Goals of care conference due to high risk mortality * Await COVID-19 test * Pain management * ST eval * Overall very poor prognosis. Discussed with possibility of palliation. Shadia agrees if patient does not improve in the next 24 hours she will consider palliation and end-of-life care given his overall poor quality of life. Current Visit: Yes Medical - PN: Qual - VTE Deep Vein Thrombosis/Pulmonary Embolism Present on Admission: No
[2019-12-04] MEDS: HEPARIN 5,000 UNIT/ML VIAL SQ SCH (09:38)
[2019-12-04] MEDS: DEXTROSE 5%-1/2NS 1,000 ML IV SCH (09:39)
[2019-12-04] MEDS ORDERED: fentaNYL 12 MCG PATCH TOPICAL SCH (10:00)
[2019-12-04] MEDS: cefTRIAXone 2 GM in DEXTROSE 5% IN WATER 50 ML IV SCH (10:37)
[2019-12-04] MEDS: DOCUSATE SODIUM 100 MG CAPSULE PO SCH (11:03)
[2019-12-04] MEDS ORDERED: INSULIN ASPART 1 UNIT SQ SCH (11:30)
[2019-12-04] MEDS ORDERED: INSULIN LISPRO 1 UNIT/0.01 ML UNIT SQ SCH (11:30)
[2019-12-04] MEDS ORDERED: 0.45 % SODIUM CHLORIDE 1,000 ML IV SCH (13:00)
--- NOTE | 2019-12-04 13:44 | Internal Med Progress Note ---
Medical - PN: Subj Patient information: Note initiated : 12/04/19 at 1:37 pm Service Date, if different from initiated Date: [] Patient: Sherif Lawson a 89 y/o M admitted on 12/03/19 for stroke symptoms, right facial droop. Chief Complaint: [] Interval history: Mr. Lawson is a 89 year old M with recent hospitalization for T12 endplate vertebral fracture/pain management and was discharged on 11/30. 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 He was discharged to [facility] home however over the last 48 hours he has been to the ER twice with increasing fever weakness and mental status change. During the previous visit on 428 he was diagnosed with UTI and was discharged on antibiotics. Today he presents with altered status/right-sided facial droop for possible CVA. Initial NIH score was high and patient underwent MRI this reveals a new lacunar CVA. ER physician discussed the case with stroke neurologist at [place] Dr. Merrill. Patient is beyond the window for TPA and hence hospital service was consulted for further management. Patient was found to have a white count of 15,000 with pyuria and fever along with sodium of 153. COVID test was ordered. present in room. Hospitalist service was consulted At the time of my evaluation patient is nearly obtunded. He is not able to answer any question. Shadia is at bedside. She was able to endorse history as above. Given multiple recent hospitalization and extensive comorbidi ties I discussed the goals of care and expressed that she would want him to be comfortable if he does not improved in the next 24 to 48 hours despite treatment. 12/03-patient ongoing post stroke care in ICU. Systolics around 170. Use as needed hydralazine to keep systolics around 140. Sodium improved 151. Persistent aspiration and dysphagia unable to take p.o. Family conference today for goals of care conference. Likely will transition to end-of-life palliation due to poor overall prognosis and chance of recovery with underlying comorbidities and quality of life. 12/04 - Constitutional Vitals: Vital Signs Temp Pulse Resp BP Pulse Ox 99.5 F H 107 H 27 H 174/94 94 12/04/19 13:01 12/04/19 08:01 12/04/19 13:01 12/04/19 13:01 12/04/19 12:01 Period Temp Pulse Resp BP Sys/Vides Pulse Ox Last 24 Hr 98.7 F-100.0 F 28-113 13-27 136-200/67-111 91-98 Intake and Output 12/03/19 12/04/19 12/04/19 21:59 05:59 13:59 Intake Total 1200 65 1396 Output Total 585 910 Balance 1200 -520 486 Weight 73.981 kg Intake & Output: Intake & Output 12/03/19 12/04/19 12/04/19 21:59 05:59 13:59 Intake Total 1200 65 1396 Output Total 585 910 Balance 1200 -520 486 Weight 73.981 kg Intake: IV 1200 65 1276 Sodium Chloride 0.9% 1,000 ml @ 1000 Wide Open IV BOLUS ONE Rx#: [id number] Dextrose 5%-1/2Ns IV Solution 1 1276 ,000 ml @ 84 mls/hr IV .[id number] [facility] Rx#:[id number] Oral 120 Output: Urine Catheter Amount 585 910 Other: Meal Breakfast Percent of Meal Consumed 0% Urine Appearance Clear Cloudy Uretheral (Multani) Clear Clear Urine Color Pale Dark Yellow Uretheral (Multani) Dark Yellow Urine Odor Normal Exam: General: Remains minimally responsive Eyes/N/T: Opens eyes to verbal command Head/Neck: neck supple, CV: Tachycardia but regular, No murmurs, Pulm: Clear b/l, no wheezing/rhonchi/rales Abd: soft, nontender, +BS x4 Ext: no clubbing/cyanosis/edema Neuro: Minimally responsive, facial droop Skin: warm/dry Medical - PN: Obj Da - Labs CBC & Chem 7: 12/04/19 04:50 12/04/19 04:50 Labs: Abnormal Lab Results 12/04/19 12/04/19 12/03/19 04:50 04:50 21:55 WBC 13.7 H RBC 4.30 L MCV 104.2 H MCH 34.7 H Plt Count 125 L MPV 10.7 H Gran % Lymph % (Auto) Gran # Lymph # (Auto) [place] # (Auto) Seg Neutrophils % 84 H Lymphocytes % 8 L Platelet Estimate Decreased A RBC Morphology Abnorm A Macrocytosis 2+ A POC Sodium Sodium 151 H POC Chloride Chloride 115 H Carbon Dioxide 21 L POC BUN BUN 27 H Creatinine 1.5 H POC Creatinine Glucose 348 H POC Glucose Uric Acid 8.1 H POC WB Ioniz Calcium Lactate Dehydrogenase 343 H Albumin 2.9 L Globulin 3.9 H Albumin/Globulin Ratio 0.7 L Urine Protein 100 A Urine Glucose (UA) 50 A Urine Occult Blood 0.2 A 12/03/19 12/03/19 14:40 14:40 WBC 15.5 H RBC 4.58 L MCV 103.1 H MCH 34.5 H Plt Count MPV Gran % 85.6 H Lymph % (Auto) 6.8 L Gran # 13.29 H Lymph # (Auto) 1.06 L [place] # (Auto) 1.08 H Seg Neutrophils % Lymphocytes % Platelet Estimate RBC Morphology Macrocytosis POC Sodium 153 H Sodium 150 H POC Chloride 118 H Chloride 113 H Carbon Dioxide POC BUN 30 H BUN 28 H Creatinine 1.6 H POC Creatinine 1.7 H Glucose 273 H POC Glucose 278 H Uric Acid POC WB Ioniz Calcium 1.39 H Lactate Dehydrogenase Albumin Globulin 3.8 H Albumin/Globulin Ratio 0.9 L Urine Protein Urine Glucose (UA) Urine Occult Blood Meds: Medications Acetaminophen (Tylenol) 650 mg PO Q4-6HP PRN; Protocol PRN Reason: Per Pain Protocol/Fever > 101 Hydrocodone Bitart/Acetaminophen ([place] 5/325mg) 1 - 2 tab PO Q6HP PRN; Protocol PRN Reason: Pain Aspirin (Ecotrin) 325 mg PO QDAY [facility] Last Admin: 12/04/19 09:38 Dose: 325 mg Documented by: Bisacodyl (Dulcolax) 10 mg [place] Q2-3DAYS PRN PRN Reason: Constipation Calcium Polycarbophil (Fibercon) 1 tab PO Q48H [facility] Last Admin: 12/04/19 11:03 Dose: Not Given Documented by: Diagnostic Test (Pha) (Accu-Chek) 1 each FS ACHS [facility] Last Admin: 12/04/19 12:51 Dose: 1 each Documented by: Docusate Sodium (Colace) 100 mg PO BID [facility] Last Admin: 12/04/19 11:03 Dose: Not Given Documented by: Fentanyl (Duragesic) 12 mcg TOPICAL Q72H [facility] Last Admin: 12/04/19 10:06 Dose: 12 mcg Documented by: Guaifenesin/Codeine Phosphate (Robitussin Ac) 10 ml PO Q4HP PRN PRN Reason: Cough Heparin Sodium (Porcine) (Heparin) 5,000 unit SQ Q12 [facility] Last Admin: 12/04/19 09:38 Dose: 5,000 unit Documented by: Hydralazine HCl (Apresoline) 20 mg IV Q4-6HP PRN PRN Reason: Hypertension Hydrochlorothiazide (Oretic) 25 mg PO DAILY [facility] Last Admin: 12/04/19 09:38 Dose: 25 mg Documented by: Ceftriaxone Sodium 2 gm/ (Dextrose) 50 mls @ 100 mls/hr IV Q24H [facility]; Protocol Last Admin: 12/04/19 10:37 Dose: 100 mls/hr Documented by: Acetaminophen (Ofirmev) 650 mg in 65 mls @ 130 mls/hr IV Q6HP PRN; Protocol PRN Reason: PAIN/FEVER > 101 Last Infusion: 12/03/19 23:55 Dose: Infused Documented by: Sodium Chloride (Sodium Chloride 0.45%) 1,000 mls @ 75 mls/hr IV .[id number] [facility] Last Admin: 12/04/19 13:03 Dose: 75 mls/hr Documented by: Insulin Glargine (Lantus) 10 unit SQ DAILY [facility] Last Admin: 12/04/19 10:02 Dose: 10 unit Documented by: Insulin Human Lispro (Humalog) 0 unit SQ ACHS [facility]; Protocol Last Admin: 12/04/19 13:03 Dose: 8 units Documented by: Iron Carb/Multivit/Pelletising Extruder Operator/Folic Acid (Multivitamin W/Minerals) 1 tab PO DAILY [facility] Last Admin: 12/04/19 11:04 Dose: Not Given Documented by: Isosorbide Mononitrate (Imdur) 30 mg PO DAILY [facility] Last Admin: 12/04/19 11:04 Dose: Not Given Documented by: Lisinopril (Zestril) 40 mg PO DAILY [facility] Last Admin: 12/04/19 09:37 Dose: 40 mg Documented by: Magnesium Oxide (Magnesium Oxide) 400 mg PO BID [facility] Last Admin: 12/04/19 11:04 Dose: Not Given Documented by: Melatonin (Melatonin 3mg Tablet) 3 mg PO HSP PRN PRN Reason: Insomnia Metoprolol Tartrate (Lopressor) 25 mg PO BID [facility] Last Admin: 12/04/19 09:38 Dose: 25 mg Documented by: Omeprazole (Prilosec) 20 mg PO ACB [facility] Last Admin: 12/04/19 09:37 Dose: 20 mg Documented by: Ondansetron HCl (Zofran Odt) 4 mg SL Q4-6HP PRN; Protocol PRN Reason: Nausea And Vomiting Ondansetron HCl (Zofran) 4 mg IV Q4-6HP PRN; Protocol PRN Reason: Nausea And Vomiting Polyethylene Glycol (Miralax) 17 gm PO DAILYP PRN PRN Reason: Constipation Senna/Docusate Sodium (Senna Plus Tablet) 1 tab PO HS [facility] Last Admin: 12/03/19 20:51 Dose: Not Given Documented by: Sodium Chloride (Saline Flush) 10 ml IV Q8 [facility] Last Admin: 12/04/19 05:51 Dose: 10 ml Documented by: Medical - PN: A/P - Time Spent With Patient Total time spent is greater than 50% in coordination of care (as documented) at patient's floor/unit and/or counseling patient: - Narrative A/P Narrative: A: *Sepsis with endorgan dysfunction. Clinically improving. *Acute encephalopathy secondary to CVA/sepsis *Acute ischemic CVA on MRI. Unable to take aspirin statin due to high risk aspiration *Complicated UTI: continue antibiotic coverage *Aspiration pneumonia: 2/2 underlying dysphagia from recurrent stroke. *Oropharyngeal dysphagia: 2/2 CVA *Recent T12 inferior endplate fracture on pain management: On T SLO brace per orthopedics. *Hypernatremia: improved now at 151. Continue free water replacement. *HTN: home meds thiazide/ERIN inhibitor/beta-yudy and Imdur *History of CVA x2 *DM II: *h/o PE s/p IVC filter *CAD w/stent to LAD 2008: PCI 2019. On medical therapy *PAF: Currently in sinus on Eliquis. recent echocardiogram preserved EF *CKD III: Creatinine 1.6 *Type 2 diabetes: A1c 6.4 *h/o colon/melanoma/prostate cancer Plan -permissive hypertension first 24-48hrs -Antibiotic coverage -Aspiration precaution -Await COVID-19 test -Pain management -ST eval -Goals of care conference due to high risk mortality -Overall very poor prognosis. Discussed with possibility of palliation. Shadia agrees if patient does not improve in the next 24 hours she will consider palliation and end-of-life care given his overall poor quality of life. DNR Medical - PN: Qual - VTE Deep Vein Thrombosis/Pulmonary Embolism Present on Admission: No
--- NOTE | 2019-12-04 16:04 | Event Note ---
called and talked to nurse and would like to transition to comfort care at this time.
[2019-12-04] MEDS ORDERED: ONDANSETRON 4 MG ODT TABLET SL PRN (16:14)
[2019-12-04] MEDS ORDERED: LACTOPEROXI/GLUC OXID/POT THIO 1 EACH GEL..EA. TOPICAL PRN (16:14)
[2019-12-04] MEDS ORDERED: LORazepam 2 MG/ML VIAL IV PRN (16:14)
[2019-12-05] MEDS: 0.9 % SODIUM CHLORIDE 10 ML SYRINGE IV SCH (07:00)
--- NOTE | 2019-12-05 07:22 | Internal Med Progress Note ---
Medical - PN: Subj Patient information: Note initiated : 12/05/19 at 7:21 am Service Date, if different from initiated Date: [] Patient: Sherif Lawson a 89 y/o M admitted on 12/03/19 for stroke symptoms, right facial droop. Chief Complaint: [] Interval history: Mr. Lawson is a 89 year old M with recent hospitalization for T12 endplate vertebral fracture/pain management and was discharged on 11/30. 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 He was discharged to shelter home however over the last 48 hours he has been to the ER twice with increasing fever weakness and mental status change. During the previous visit on 428 he was diagnosed with UTI and was discharged on antibiotics. Today he presents with altered status/right-sided facial droop for possible CVA. Initial NIH score was high and patient underwent MRI this reveals a new lacunar CVA. ER physician discussed the case with stroke neurologist at [place] Dr. Merrill. Patient is beyond the window for TPA and hence hospital service was consulted for further management. Patient was found to have a white count of 15,000 with pyuria and fever along with sodium of 153. COVID test was ordered. present in room. Hospitalist service was consulted At the time of my evaluation patient is nearly obtunded. He is not able to answer any question. Shadia is at bedside. She was able to endorse history as above. Given multiple recent hospitalization and extensive comorbidi ties I discussed the goals of care and expressed that she would want him to be comfortable if he does not improved in the next 24 to 48 hours despite treatment. 12/03-patient ongoing post stroke care in ICU. Systolics around 170. Use as needed hydralazine to keep systolics around 140. Sodium improved 151. Persistent aspiration and dysphagia unable to take p.o. Family conference today for goals of care conference. Likely will transition to end-of-life palliation due to poor overall prognosis and chance of recovery with underlying comorbidities and quality of life. called and talked to nurse and would like to transition to comfort care at this time. 12/04 Minimally responsive. No overnight events. Unable to gather review of systems as patient essentially nonverbal. - Constitutional Vitals: Vital Signs Temp Pulse Resp BP Pulse Ox 99.5 F H 100 H 24 H 154/109 92 12/04/19 19:50 12/04/19 19:50 12/04/19 19:47 12/04/19 19:47 12/04/19 19:50 Period Temp Pulse Resp BP Sys/Vides Pulse Ox Last 24 Hr 99.0 F-99.6 F 100-107 17-28 154-179/82-109 92-94 Intake and Output 12/04/19 12/05/19 12/05/19 21:59 05:59 13:59 Output Total 60 525 Balance -60 -525 Intake & Output: Intake & Output 12/04/19 12/05/19 12/05/19 21:59 05:59 13:59 Output Total 60 525 Balance -60 -525 Output: Urine Catheter Amount 60 525 Other: Urine Appearance Clear Clear Uretheral (Multani) Clear Urine Color Dark Yellow Dark Yellow Uretheral ([place]) Dark Yellow Urine Odor Normal Exam: General: somnolent, no acute distress Eyes/N/T: partially opens eyes to sternal rub Head/Neck: neck supple, CV: mildly Tachycardia but regular, No murmurs, Pulm: b/l rhonchi/rales, no wheezing Abd: soft, nontender, +BS x4 Ext: no clubbing/cyanosis/edema Neuro: Minimally responsive, partially opens eyes to sternal rub and moves head, facial droop Skin: warm/dry Medical - PN: Obj Da - Labs CBC & Chem 7: 12/04/19 04:50 12/04/19 04:50 Labs: Abnormal Lab Results 12/04/19 12/04/19 12/03/19 04:50 04:50 21:55 WBC 13.7 H RBC 4.30 L MCV 104.2 H MCH 34.7 H Plt Count 125 L MPV 10.7 H Gran % Lymph % (Auto) Gran # Lymph # (Auto) [place] # (Auto) Seg Neutrophils % 84 H Lymphocytes % 8 L Platelet Estimate Decreased A RBC Morphology Abnorm A Macrocytosis 2+ A POC Sodium Sodium 151 H POC Chloride Chloride 115 H Carbon Dioxide 21 L POC BUN BUN 27 H Creatinine 1.5 H POC Creatinine Glucose 348 H POC Glucose Uric Acid 8.1 H POC WB Ioniz Calcium Lactate Dehydrogenase 343 H Albumin 2.9 L Globulin 3.9 H Albumin/Globulin Ratio 0.7 L Urine Protein 100 A Urine Glucose (UA) 50 A Urine Occult Blood 0.2 A 12/03/19 12/03/19 14:40 14:40 WBC 15.5 H RBC 4.58 L MCV 103.1 H MCH 34.5 H Plt Count MPV Gran % 85.6 H Lymph % (Auto) 6.8 L Gran # 13.29 H Lymph # (Auto) 1.06 L [place] # (Auto) 1.08 H Seg Neutrophils % Lymphocytes % Platelet Estimate RBC Morphology Macrocytosis POC Sodium 153 H Sodium 150 H POC Chloride 118 H Chloride 113 H Carbon Dioxide POC BUN 30 H BUN 28 H Creatinine 1.6 H POC Creatinine 1.7 H Glucose 273 H POC Glucose 278 H Uric Acid POC WB Ioniz Calcium 1.39 H Lactate Dehydrogenase Albumin Globulin 3.8 H Albumin/Globulin Ratio 0.9 L Urine Protein Urine Glucose (UA) Urine Occult Blood Meds: Medications Hydrocodone Bitart/Acetaminophen ([place] 5/325mg) 1 - 2 tab PO Q6HP PRN; Protocol PRN Reason: Pain Fentanyl (Duragesic) 12 mcg TOPICAL Q72H [facility] Glucose Oxid/Lactoperoxid/[place]am[place] (Biotene) 1 each TOPICAL PRN PRN PRN Reason: Dry Mouth Lorazepam (Ativan) 0 mg IV Q1HP PRN; Protocol PRN Reason: ANXIETY/SEDATION Last Admin: 12/04/19 23:14 Dose: 2 mg Documented by: Morphine Sulfate (Morphine) 0 mg IV Q1HP PRN PRN Reason: Pain Last Admin: 12/04/19 21:09 Dose: 2 mg Documented by: Morphine Sulfate (Morphine) 4 mg NEB Q4HP PRN PRN Reason: Shortness Of Breath Ondansetron HCl (Zofran Odt) 4 mg SL Q4HP PRN; Protocol PRN Reason: Nausea And Vomiting Sodium Chloride (Saline Flush) 10 ml IV Q8 [facility] Last Admin: 12/04/19 21:11 Dose: 10 ml Documented by: Medical - PN: A/P - Time Spent With Patient Total time spent is greater than 50% in coordination of care (as documented) at patient's floor/unit and/or counseling patient: - Narrative A/P Narrative: A: *Sepsis with endorgan dysfunction. *Acute encephalopathy secondary to CVA/sepsis *Acute ischemic CVA on MRI. Unable to take aspirin statin due to high risk aspiration *Complicated UTI: continue antibiotic coverage *Aspiration pneumonia: 2/2 underlying dysphagia from recurrent stroke. *Oropharyngeal dysphagia: 2/2 CVA *Recent T12 inferior endplate fracture on pain management: On T SLO brace per orthopedics. *Hypernatremia: improved now at 151. *HTN: home meds thiazide/ERIN inhibitor/beta-yudy and Imdur *History of CVA x2 *DM II: *h/o PE s/p IVC filter *CAD w/stent to LAD 2008: PCI 2019. On medical therapy *PAF: Currently in sinus on Eliquis. recent echocardiogram preserved EF *CKD III: Creatinine 1.6 *Type 2 diabetes: A1c 6.4 *h/o colon/melanoma/prostate cancer Plan -comfort care only -pt and family support Medical - PN: Qual - VTE Deep Vein Thrombosis/Pulmonary Embolism Present on Admission: No
--- NOTE | 2019-12-05 10:11 | Discharge Summary ---
Medical - DS: Prov Patient information: Note initiated : 12/05/19 at 10:04 am Service Date, if different from initiated Date: [] Patient: Sherif Lawson 89 y/o M admitted on 12/03/19 for stroke symptoms, right facial droop. Chief Complaint: [] Date of admission: 12/03/19 19:57 Discharge date: 12/05/19 Primary care physician: Yovani Laguerre Consults: 12/03/19 17:26 Consult to Physician [CONS] Stat Comment: Consulting Provider: Rahul Clark Reason For Exam: Physician to Consult Medical - DS: Meds - Discharge Medications Prescriptions: LORazepam [Ativan] 1 - 2 mg PO Q2HP PRN #30 ml PRN Reason: Pain fentaNYL [Duragesic] 12 mcg TOPICAL Q72H #3 patch Hyoscyamine Sulfate [Levsin-Sl] 0.125 mg SL QIDP PRN #10 tab.subl PRN Reason: Secretions morphine SULFATE [Morphine Sulfate] 1 - 2 mg PO Q2HP PRN #30 ml PRN Reason: Pain Acetaminophen [Tylenol] 650 mg MS Q6HP PRN #20 supp.rect PRN Reason: Fever Ondansetron [Zofran ODT] 4 mg SL Q4-6HP PRN #30 tablet PRN Reason: Nausea Active and Home Medications: Home Medications Calcium Polycarbophil [Fiber Laxative] 625 mg PO DAILY 09/25/18 [History Confirmed 12/03/19 Last Taken 11/26/19 08:00] Hydrochlorothiazide [Oretic] 25 mg PO DAILY 09/25/18 [History Confirmed 12/03/19 Last Taken 11/26/19 08:00] Isosorbide Mononitrate [Imdur] 30 mg PO DAILY 09/25/18 [History Confirmed Last Taken 11/26/19 08:00] Lisinopril [Zestril] 40 mg PO DAILY 09/25/18 [History Confirmed 12/03/19 Last Taken 11/26/19 08:00] Omeprazole [Prilosec] 20 mg PO DAILY 09/25/18 [History Confirmed 12/03/19 Last Taken 11/26/19 07:00] glipiZIDE [Glucotrol] 10 mg PO BID 09/25/18 [History Confirmed 12/03/19 Last Taken 11/26/19 17:00] metFORMIN HCL [Metformin HCl] 1,275 mg PO QAM 09/25/18 [History Confirmed 12/03/19 Last Taken 11/26/19 08:00] Magnesium Amino Acid Chelate [Magnesium] 400 mg PO BID 07/22/19 [History Confirmed 12/03/19 Last Taken 11/26/19 20:00] Metoprolol Tartrate [Lopressor] 25 mg PO BID #1 tab 07/28/19 [Rx Confirmed 12/03/19 Last Taken 11/26/19 20:00] aspirin 325 mg tablet,delayed release 325 mg PO QDAY 11/24/19 [History Confirmed 12/03/19 Last Taken 11/26/19 08:00] Insulin Aspart [Novolog] 0 unit SQ PRN PRN 11/27/19 [History Confirmed 12/03/19 Last Taken Unknown] Insulin Glargine,Hum.rec.anlog [Basaglar Kwikpen U-100] 10 unit SQ DAILY 11/27/19 [History Confirmed 12/03/19 Last Taken 11/26/19 08:00] metFORMIN [Glucophage] 850 mg PO HS 11/27/19 [History Confirmed 12/03/19 Last Taken 11/26/19 20:00] Baclofen [Lioresal] 5 mg PO TID #20 tab 12/01/19 [Rx Confirmed 12/03/19 Last Taken Unknown] Bisacodyl [Dulcolax] 10 mg MS Q2-3DAYS PRN supp.rect 12/01/19 [Rx Confirmed 12/03/19 Last Taken Unknown] HYDROcodone/APAP 5/325MG [[place] 5-325Mg] 1 - 2 tab PO Q6HP PRN #10 tab 12/01/19 [Rx Confirmed 12/03/19 Last Taken Unknown] Insulin Aspart [Novolog] 1 unit SQ ACHS #1 ml 12/01/19 [Rx Confirmed 12/03/19 Last Taken Unknown] fentaNYL [Duragesic] 12 mcg TOPICAL Q72H #7 patch 12/01/19 [Rx Confirmed 12/03/19 Last Taken Unknown] Ciprofloxacin [Cipro] 500 mg PO BID #20 tab 12/02/19 [Rx Confirmed 12/03/19 Last Taken Unknown] Docusate Sodium [Colace] 100 mg PO DAILY 12/03/19 [History Confirmed 12/03/19 Last Taken Unknown] Home Medications Baclofen [Lioresal] 5 mg PO TID #20 tab 12/01/19 [Rx Confirmed 12/03/19 Last Taken Unknown] Bisacodyl [Dulcolax] 10 mg MS Q2-3DAYS PRN supp.rect 12/01/19 [Rx Confirmed 12/03/19 Last Taken Unknown] Docusate Sodium [Colace] 100 mg PO DAILY 12/03/19 [History Confirmed 12/03/19 Last Taken Unknown] Acetaminophen [Tylenol] 650 mg MS Q6HP PRN #20 supp.rect 12/05/19 [Rx Last Taken Unknown] Hyoscyamine Sulfate [Levsin-Sl] 0.125 mg SL QIDP PRN #10 tab.subl 12/05/19 [Rx Last Taken Unknown] LORazepam [Ativan] 1 - 2 mg PO Q2HP PRN #30 ml 12/05/19 [Rx Last Taken Unknown] Ondansetron [Zofran ODT] 4 mg SL Q4-6HP PRN #30 tablet 12/05/19 [Rx Last Taken Unknown] fentaNYL [Duragesic] 12 mcg TOPICAL Q72H #3 patch 12/05/19 [Rx Last Taken Unknown] morphine SULFATE [Morphine Sulfate] 1 - 2 mg PO Q2HP PRN #30 ml 12/05/19 [Rx Last Taken Unknown] Medical - DS: Hosp Hospital Course: Mr. Lawson is a 89 year old M with recent hospitalization for T12 endplate vertebral fracture/pain management and was discharged on 11/30. 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 He was discharged to halfway home however over the last 48 hours he has been to the ER twice with increasing fever weakness and mental status change. During the previous visit on 428 he was diagnosed with UTI and was discharged on antibiotics. Today he presents with altered status/right-sided facial droop for possible CVA. Initial NIH score was high and patient underwent MRI this reveals a new lacunar CVA. ER physician discussed the case with stroke neurologist at [place] Dr. Merrill. Patient is beyond the window for TPA and hence hospital service was consulted for further management. Patient was found to have a white count of 15,000 with pyuria and fever along with sodium of 153. COVID test was ordered. present in room. Hospitalist service was consulted At the time of my evaluation patient is nearly obtunded. He is not able to answer any question. Shadia is at bedside. She was able to endorse history as above. Given multiple recent hospitalization and extensive comorbidities I discussed the goals of care and expressed that she would want him to be comfortable if he does not improved in the next 24 to 48 hours despite treatment. 12/03-patient ongoing post stroke care in ICU. Systolics around 170. Use as needed hydralazine to keep systolics around 140. Sodium improved 151. Persistent aspiration and dysphagia unable to take p.o. Family conference today for goals of care conference. Likely will transition to end-of-life palliation due to poor overall prognosis and chance of recovery with underlying comorbidities and quality of life. called and talked to nurse and would like to transition to comfort care at this time. 12/04 Minimally responsive. No overnight events. Unable to gather review of systems as patient essentially nonverbal. A: *Sepsis with endorgan dysfunction. *Acute encephalopathy secondary to CVA/sepsis *Acute ischemic CVA on MRI. Unable to take aspirin statin due to high risk aspiration *Complicated UTI: continue antibiotic coverage *Aspiration pneumonia: 2/2 underlying dysphagia from recurrent stroke. *Oropharyngeal dysphagia: 2/2 CVA *Recent T12 inferior endplate fracture on pain management: On T SLO brace per orthopedics. *Hypernatremia: improved now at 151. *HTN: home meds thiazide/ERIN inhibitor/beta-yudy and Imdur *History of CVA x2 *DM II: *h/o PE s/p IVC filter *CAD w/stent to LAD 2008: PCI 2019. On medical therapy *PAF: Currently in sinus on Eliquis. recent echocardiogram preserved EF *CKD III: Creatinine 1.6 *Type 2 diabetes: A1c 6.4 *h/o colon/melanoma/prostate cancer Discharge diagnosis: Sepsis encephalopathy stroke complicated UTI aspiration pneumonia Secondary discharge diagnosis: Oral pharyngeal dysphagia spinal column compression fracture hypertension diabetes history of pulmonary emboli CAD proximal is mitral ablation chronic kidney disease diabetes - Time Spent with Patient Total time spent providing and/or coordinating discharge services: Greater than 30 minutes Medical - DS: Exam - Constitutional Vitals: Vital Signs Temp Pulse Pulse Resp BP Pulse Ox 12/05/19 08:00 99.8 F H 88 20 04/30/20 19:50 99.5 F H 100 H 92 12/04/19 19:47 99.5 F H 101 H 24 H 154/109 92 12/04/19 19:40 92 12/04/19 16:01 99.6 F H 28 H 163/107 12/04/19 15:01 99.0 F 23 H 154/83 12/04/19 14:01 99.6 F H 25 H 156/82 12/04/19 13:01 99.5 F H 27 H 174/94 12/04/19 12:01 99.3 F H 20 179/95 94 Intake and Output 12/04/19 12/05/19 12/05/19 21:59 05:59 13:59 Output Total 60 525 Balance -60 -525 Output: Urine Catheter Amount 60 525 Other: Urine Appearance Clear Clear Uretheral ([place]ani) Clear Urine Color Dark Yellow Dark Yellow Uretheral (Multani) Dark Yellow Dark Yellow Urine Odor Normal Medical - DS: A/P - Patient/Caregiver Discharge Instructions Activity: increase activity as tolerated Diet: Regular Diet Prescriptions: LORazepam [Ativan] 1 - 2 mg PO Q2HP PRN #30 ml PRN Reason: Pain fentaNYL [Duragesic] 12 mcg TOPICAL Q72H #3 patch Hyoscyamine Sulfate [Levsin-Sl] 0.125 mg SL QIDP PRN #10 tab.subl PRN Reason: Secretions morphine SULFATE [Morphine Sulfate] 1 - 2 mg PO Q2HP PRN #30 ml PRN Reason: Pain Acetaminophen [Tylenol] 650 mg MS Q6HP PRN #20 supp.rect PRN Reason: Fever Ondansetron [Zofran ODT] 4 mg SL Q4-6HP PRN #30 tablet PRN Reason: Nausea - Follow up Plan Follow up with: Yovani Laguerre MD [Primary Care Provider] - (Schedule appointments as needed) Disposition: Hospice - Home Care Plan Goals: This discharge packet is provided to you to help keep you informed about your care. We want to ensure you get everything you need when you go home. You will also be receiving a call from us in a few days to follow up with you and see how you are doing since your discharge. This gives us a chance to listen to any concerns you maybe experiencing since you were discharged or any additional needs you may have, as well as providing us feedback on your care experience. We strive to always provide excellent care and thank you for your feedback and for choosing [facility]. Prognosis: Serious Rehab Potential: Undetermined Overall status at discharge: patient is not back to baseline Medical - DS: Qual - VTE Deep Vein Thrombosis/Pulmonary Embolism Present on Admission: No
[2019-12-07] MEDS ORDERED: fentaNYL 12 MCG PATCH TOPICAL SCH (10:00)
== END 2019-12-05 13:45 | disposition hospice, home (50) | DRG 871 ==
LOC: ED 14:30 → ICU 19:57
PROVIDERS: ADMIT Internal Medicine; ATTEND Internal Medicine